=== PATIENT | female | born 1930 | race Caucasian/White ===

== ENCOUNTER 2016-12-30 11:05 | Observation (INO) ==
--- NOTE | 2016-12-30 11:15 | Emergency Department Note ---
Disposition Clinical Impression: Pneumonia Qualifiers: Pneumonia type: due to unspecified organism Laterality: right Lung location: lower lobe of lung Qualified Code(s): J18.1 - Lobar pneumonia, unspecified organism Disposition: Admitted As Inpatient Condition: Fair Referrals: Corona Hollis MD [Primary Care Provider] - Forms: ED Satisfaction Letter, Work/School Release Time of Disposition: 13:20 General Adult HPI - General Chief complaint: ED General Medical Stated complaint: pain all over Time Seen by Provider: 12/30/16 11:08 Source: patient, EMS Mode of arrival: EMS Nursing Notes Reviewed: Yes Vital Signs Reviewed: Yes - History of Present Illness HPI Narrative: 86-year-old comes in complaining of generalized pain and inability to ambulate. Pt Subjective Complaint: Gen. pain Onset (ago): week(s) (2) Location: other (Generalized) Pain Scale: 8 Quality: aching Consistency: constant Improves with: nothing Associated symptoms: Reports: other (Generalized pain) - Related Data Home Medications Medication Instructions Recorded Confirmed Amiodarone [Cordarone] 200 mg PO DAILY 12/30/16 12/30/16 Furosemide [Lasix] 20 mg PO BID 12/30/16 12/30/16 Levothyroxine Sodium 200 mcg PO DAILY 12/30/16 12/30/16 [Levothyroxine Sodium] Warfarin [Coumadin] 2.5 mg PO WEFR 12/30/16 12/30/16 Warfarin [Coumadin] 5 mg PO SUMOTUTHSA 12/30/16 12/30/16 Allergies Allergy/AdvReac Type Severity Reaction Status Date / Time meperidine [From Demerol] AdvReac Unresponsiv Verified 12/30/16 11:12 e All systems ED: reviewed and negative except as stated. Constitutional: Denies: fever, chills, weakness, weight change Eyes: Denies: eye pain, eye discharge, vision change ENT ED: Denies: ear pain, throat pain, dental pain, hearing loss, epistaxis, congestion, dysphagia Cardiovascular: Denies: chest pain, palpitations, dyspnea on exertion, edema, syncope Respiratory: Denies: cough, dyspnea, wheezes, hemoptysis, stridor Gastrointestinal: Denies: abdominal pain, nausea, vomiting, diarrhea, constipation, hematemesis, melena, hematochezia Genitourinary: Denies: dysuria, frequency, hematuria, discharge Musculoskeletal: Reports: arthralgia, myalgia. Denies: back pain, neck pain Integumentary: Denies: rash, abrasion, lesions Neurological: Denies: headache, weakness, numbness, paresthesias, confusion, abnormal gait, vertigo Psychiatric: Denies: anxiety, depression, suicidal thoughts, homicidal thoughts , auditory hallucinations, visual hallucinations Endocrine: Denies: fatigue Hematological/Lymphatic: Denies: easy bleeding, easy bruising Allergic/Immunologic: Denies: facial swelling, urticaria Past Medical History - Past Medical History Medical history: Reports: atrial fibrillation, hypertension, thyroid disease Psychiatric history: Reports: no psych history - Social History Smoking Status: Never smoker Smokeless Tobacco Status: No Alcohol use: Reports: none Drug use: Reports: none Physical Exam - General General appearance: in no apparent distress - Head Head exam: atraumatic, normocephalic, normal inspection - Eye Eye exam: Present: normal appearance, PERRL, EOMI - ENT ENT exam: normal exam - Neck Neck exam: Present: normal inspection, full ROM, trachea midline - Chest Chest inspection: Present: normal inspection, symmetric chest wall rise - Respiratory Respiratory exam: Present: normal lung sounds bilaterally - Cardiovascular Cardiovascular exam: Present: regular rate, normal rhythm, normal heart sounds - Abdominal Exam Abdominal exam: Present: soft, Non-Tender. Absent: tenderness, distention, guarding, rebound, rigidity - Extremities Exam Extremities exam: Present: normal inspection - Expanded Lower Extremity Exam Neurovascular/Tendon exam: Absent: motor deficit, sensory deficit, tendon deficit Gait: observed and normal - Back Exam Back exam: Present: normal inspection, full ROM. Absent: tenderness - Neurological Exam Neurological exam: Present: alert, oriented X3 - Psychiatric Psychiatric exam: Present: normal affect, normal mood - Skin Skin exam: Present: warm, dry, intact, normal color Course - Reevaluation(s) Reevaluation #1: 86-year-old with generalized body aches some cough. Chest x-ray shows what appears to be a pneumonia. Patient will be admitted. Time: 14:16 - Consultations Consultation #1: Discussed with luis enrique Patino. Time: 14:19 Vital Signs Temperature 98.0 F 12/30/16 11:07 Pulse Rate 53 12/30/16 11:07 Respiratory Rate 16 12/30/16 11:07 Blood Pressure 148/68 12/30/16 11:07 O2 Sat by Pulse Oximetry 94 12/30/16 11:07 Temperature 98.0 F 12/30/16 11:07 Pulse Rate 53 12/30/16 11:07 Respiratory Rate 16 12/30/16 11:07 Blood Pressure 148/68 12/30/16 11:07 O2 Sat by Pulse Oximetry 94 12/30/16 11:07 Oxygen Delivery Oxygen Delivery Room Air Medical Decision Making - Lab Data Lab results reviewed: Yes I reviewed the patient's lab results. Result diagrams: 12/30/16 11:23 12/30/16 11:23 Lab Results 12/30/16 12/30/16 12/30/16 Range/Units 11:23 11:23 11:23 WBC 9.2 (4.3-11.1) K/mcL RBC 4.47 (3.82-4.97) M/mcL Hgb 14.3 (11.5-15.4) g/dL Hct 42.8 (35.3-44.9) % MCV 95.7 (83.0-100.0) fL MCH 32.0 (28.0-33.3) pg MCHC 33.4 (31.6-35.5) g/dL RDW 13.7 (11.5-14.5) % Plt Count 315 (140-400) K/mcL MPV 9.9 (9.4-12.4) fL Immature Gran % 1.0 (0-4) % Seg Neutrophils % 75.0 % Lymphocytes % 11.6 % Monocytes % 8.4 % Eosinophils % 3.6 % Basophils % 0.4 % Neutrophils # 6.9 (1.6-8.9) K/mcL Lymphocytes # 1.1 (0.6-4.6) K/mcL Monocytes # 0.8 (0.0-1.3) K/mcL Eosinophils # 0.3 (0.0-0.6) K/mcL Basophils # 0.0 (0.0-0.2) K/mcL Sodium 142 (136-145) mEq/L Potassium 3.7 (3.5-4.5) mEq/L Chloride 107 (98-109) mEq/L Carbon Dioxide 26 (19-29) mEq/L BUN 16 (7-20) mg/dL Creatinine 0.67 (0.57-1.11) mg/dL Est GFR ( Amer) > 60 (> 60) Est GFR (Non-Af Amer) > 60 (> 60) BUN/Creatinine Ratio 24 (6-26) Glucose 93 (70-99) mg/dL Calculated Osmolality 295 (280-300) Calcium 8.5 L (8.6-10.8) mg/dL Total Bilirubin 0.8 (0.2-1.2) mg/dL Direct Bilirubin 0.4 (0.0-0.5) mg/dL Indirect Bilirubin 0.4 (0.0-1.2) mg/dL AST 29 (5-34) Units/L ALT 21 (0-55) Units/L Alkaline Phosphatase 114 (38-126) Units/L Creatine Kinase 92 (29-168) Units/L Troponin I 0.02 (0-0.03) ng/mL Serum Total Protein 6.3 (6.0-8.3) g/dL Albumin 2.6 L (3.5-5.0) g/dL Globulin 3.7 H (2.4-3.5) g/dL Albumin/Globulin Ratio 0.7 L (1.1-2.2) Amylase 32 (25-125) Units/L Lipase < 10 (8-78) Units/L - Radiology Data Radiology results reviewed: Yes I reviewed the patient's radiology results. Chest X-Ray 12/30/16 11:12 IMPRESSION: 1. Small right pleural effusion with right lower lobe airspace opacity, favored to be atelectasis; however, if patient has clinical symptoms of infection, consolidation can represent pneumonia. D/ / Mik Siu MD / Mik Siu MD Interpreting Provider: Mik Siu MD - EKG Data EKG #1 EKG attestation: Yes I reviewed and interpreted this EKG. EKG shows normal: sinus rhythm Rate: bradycardia Rhythm: NSR [place]/QRS: IVCD Interpretation: no acute changes, nonspecific ST-T wave changes
[2016-12-30 11:30] LABS: Basophils % 0.4 %; Eosinophils # 0.3 K/mcL (0.0-0.6); Eosinophils % 3.6 %; Hematocrit 42.8 % (35.3-44.9); Hemoglobin 14.3 g/dL (11.5-15.4); Lymphocytes # 1.1 K/mcL (0.6-4.6); Lymphocytes % 11.6 %; Mean Corpuscular HGB Conc 33.4 g/dL (31.6-35.5); Mean Corpuscular Volume 95.7 fL (83.0-100.0); Mean Platelet Volume 9.9 fL (9.4-12.4); Monocytes # 0.8 K/mcL (0.0-1.3); Monocytes % 8.4 %; Neutrophils # 6.9 K/mcL (1.6-8.9); Platelet Count 315 K/mcL (140-400); Red Blood Count 4.47 M/mcL (3.82-4.97); Red Cell Distribution Width 13.7 % (11.5-14.5)
[2016-12-30 11:47] LABS: Alanine Aminotransferase 21 Units/L (0-55); Albumin 2.6 g/dL (3.5-5.0); Albumin/Globulin Ratio 0.7 (1.1-2.2); Alkaline Phosphatase 114 Units/L (38-126); Amylase 32 Units/L (25-125); Aspartate Amino Transferase 29 Units/L (5-34); BUN/Creatinine Ratio 24 (6-26); Bilirubin,Direct 0.4 mg/dL (0.0-0.5); Bilirubin,Indirect 0.4 mg/dL (0.0-1.2); Bilirubin,Total 0.8 mg/dL (0.2-1.2); Blood Urea Nitrogen 16 mg/dL (7-20); Calcium 8.5 mg/dL (8.6-10.8); Carbon Dioxide 26 mEq/L (19-29); Chloride 107 mEq/L (98-109); Creatine Kinase 92 Units/L (29-168); Globulin 3.7 g/dL (2.4-3.5); Glucose 93 mg/dL (70-99); Osmolality,Calculated 295 (280-300); Potassium 3.7 mEq/L (3.5-4.5); Sodium 142 mEq/L (136-145); Total Protein 6.3 g/dL (6.0-8.3); eGFR For African Americans > 60 (> 60); eGFR For Non-African Americans > 60 (> 60)
[2016-12-30 11:52] LABS: Lipase < 10 Units/L (8-78)
[2016-12-30] MEDS ORDERED: Piperacillin/Tazobactam 3.375 GM in D5% in Water 50 ML IVPB ONE (13:19)
[2016-12-30 14:27] LABS: Bilirubin,Urine Small (Negative); Blood,Urine Negative (Negative); Clarity,Urine Clear (Clear); Color,Urine Yellow (Yellow); Glucose,Urine (UA) Normal (Normal); Ketones,Urine Negative (Negative); Leukocyte Esterase,Urine Negative (Negative); Nitrite,Urine Negative (Negative); PH,Urine 6.5 pH Units (5.0-8.0); Protein,Urine Negative (Neg-Trace); Specific Gravity,Urine 1.021 (1.010-1.025); Urobilinogen,Urine Normal (Normal)
[2016-12-30] MEDS ORDERED: Ondansetron 4 MG/2 ML VIAL IVP PRN (14:52)
[2016-12-30] MEDS ORDERED: Acetaminophen 325 MG TABLET PO PRN (14:52)
[2016-12-30] MEDS ORDERED: *HR* Morphine 2 MG/ML SYRINGE IVP PRN (14:52)
[2016-12-30] MEDS ORDERED: Naloxone 0.4 MG/ML INJ IVP PRN (14:56)
--- NOTE | 2016-12-30 15:15 | Internal Med History&Physical ---
<ImeldaJosef hand - Last Filed: 12/30/16 15:56> Date of Encounter: 12/30/16 Time of Encounter: 13:30 Assessment and Plan (1) Pneumonia Current visit: Yes Status: Acute 1-View CXR today shows small right pleural effusion with right lower lobe airspace opacity favored to be atelectasis, however if patient has clinical symptoms of infection consolidation can represent pneumonia. Pt. resides at SNF at reports that many residents are currently ill. Pt. does not currently meet sepsis criteria. Legionella and strep pneumoniae urine antigens ordered. Blood cultures x2. IV 0.9 NS 100 mL/HR. Supplemental O2 w/titration and SpO2 monitoring. DuoNebs Q6HR scheduled. IVPB Zosyn 3.375 gm Q8 and Levaquin 750 mg daily ordered for pneumonia coverage. Pt. at high risk for further morbidity and infection based on current sx, hx, and risk factors. Inpatient. Qualifiers: Pneumonia type: due to unspecified organism Laterality: right Lung location: lower lobe of lung Qualified Code(s): J18.1 - Lobar pneumonia, unspecified organism (2) Abdominal pain Current visit: Yes Status: Acute Pt. reports abdominal pain in lower abdomen/pelvic region most likely d/t current constipation. Colace 100 mg BID and Miralax PRN ordered. Monitor I&O and daily weight. U/A not indicative for culture or UTI. CT of the abdomen/ pelvis ordered. Qualifiers: Abdominal location: lower abdomen, unspecified Qualified Code(s): R10.30 - Lower abdominal pain, unspecified (3) Constipation Current visit: Yes Status: Acute Pt. reports acute constipation over the past two to three days. Will add Colace 100 mg BID and Miralax PRN. Monitor I&O and daily weight. Qualifiers: Constipation type: unspecified constipation type Qualified Code(s): K59.00 - Constipation, unspecified (4) Weakness Current visit: Yes Status: Acute Pt. reports weakness over the past two days in her bilateral LEs causing difficulty w/ambulation. PT/OT consults to assess pt. for ambulation strength and stability. Falls/safety precautions. (5) Atrial fibrillation Current visit: Yes Status: Chronic Hx of paroxysmal atrial fibrillation. Pt. is currently in sinus bradycardia and reports she has not had an episode of atrial fibrillation for some time after being placed on medication. Will continue patient's amiodarone. Continuous cardiac telemetry. Qualifiers: Atrial fibrillation type: paroxysmal Qualified Code(s): I48.0 - Paroxysmal atrial fibrillation (6) HTN (hypertension) Current visit: Yes Status: Chronic Hx of chronic HTN. Pt. does not currently take any HTN medication. Monitor pt. and VS and will add lisinopril if warranted. Qualifiers: Hypertension type: essential hypertension Qualified Code(s): I10 - Essential (primary) hypertension (7) Thyroid disease Current visit: Yes Status: Chronic Hx of chronic thyroid disease. Continue patient's levothyroxine. (8) DVT prophylaxis Current visit: Yes Status: Acute Warfarin with pharmacy dosing for DVT prophylaxis. Monitor pt. for signs of bleeding. Internal Medicine - H&P: HPI Chief complaint: Lower abdominal pain and weakness Admitted From: Emergency Dept Plans for Post Hospital Care: Transfer [facility] History of present illness: Ms. El is a 86 year old female with medical hx of chronic atrial fibrillation, hypertension, and thyroid disease presents from the ED with chief complaint of lower abdominal pain in the pelvic region, constipation hx, and generalized weakness with difficulty ambulating for the past two days. Pt. states that she lives at [facility] and she has seen a lot of residents who are currently sick. Pt. denies ever smoking as well as recent illness, fever, chills, nausea, vomiting, diarrhea, unusual bleeding, changes in vision, SOB, chest pain, palpitations, headache, dizziness, lightheadedness, numbness, tingling, confusion, pre-syncope, or syncope. Past Med Surg Social Fam HX - Past Medical History Source: patient, old records reviewed Medical history: atrial fibrillation, hypertension, thyroid disease Psychiatric history: no psych history - Past Surgical History Surgical History: cholecystectomy, orthopedic, other (Bilateral knee replacements), other (Tonsillectomy) - Social History Smoking Status: Never smoker Smokeless Tobacco Status: No Alcohol use: none Drug use: none Current living situation: Assisted Living Activity Level: Uses cane/walker Recent Out of Country Travel Within the Last 8 Weeks: No Exposure or Possible Exposure to Illness During Travel: No - Family History Father Race: Family Member Ethnicity: Non- Living Status: (70) Cause of : Cancer (type unknown) Hx Family Cancer: Yes Mother Race: Family Member Ethnicity: Non- Living Status: Age at : 72 Cause of : DM complications Hx Family Endocrine Disorder: Yes (DM) Brother Race: Family Member Ethnicity: Non- Living Status: Age at : 50 Cause of : Cancer (type unknown) Hx Family Cancer: Yes Sister Race: Family Member Ethnicity: Non- Living Status: Still Living Hx Family Cancer: Yes (Breast) Internal Medicine - H&P: Meds Amiodarone [Cordarone] 200 mg PO DAILY 12/30/16 [History] Furosemide [Lasix] 20 mg PO BID 12/30/16 [History] Levothyroxine Sodium [Levothyroxine Sodium] 200 mcg PO DAILY 12/30/16 [History] Warfarin [Coumadin] 2.5 mg PO WEFR 12/30/16 [History] Warfarin [Coumadin] 5 mg PO SUMOTUTHSA 12/30/16 [History] 3 Allergy/AdvReac Type Severity Reaction Status Date / Time meperidine [From Demerol] AdvReac Unresponsiv Verified 12/30/16 11:12 e All Systems PM: A 10-system review of systems was performed and is negative for pertinent findings except as documented above in the HPI. - Constitutional Constitutional: as per HPI (Bilateral LEs), weakness, no chills, no fever(s), no night sweats - EENT Eyes: no change in vision, no discharge, no pain, no photophobia Ears: no ear discharge, no ear pain, no tinnitus Nose, mouth and throat: no dysphagia, no nasal discharge, no neck pain, no sore throat - Breasts Breasts: as per HPI - Cardiovascular Cardiovascular ROS IM: no chest pain, no diaphoresis, no dyspnea, no lightheadedness, no palpitations, no syncope - Respiratory Respiratory: no cough, no dyspnea, no wheezing, no excessive phlegm production - Gastrointestinal Gastrointestinal: as per HPI, abdominal pain (Pelvic region), constipation - Genitourinary Genitourinary: no change in urinary stream, no dysuria, no flank pain, no hematuria Menstruation: as per HPI - Musculoskeletal Musculoskeletal ROS IM: no numbness, no tingling - Integumentary Integumentary IM: as per HPI, other (Skin darkening w/flaking on bilateral shins and ankles) - Neurological Neurological ROS: no confusion, no convulsions, no focal weakness, no numbness, no tingling, no tremor(s) - Psychiatric Psychiatric: as per HPI - Endocrine Endocrine IM: as per HPI - Hematologic/Lymphatic Hematologic/Lymphatic: no easy bruising - Allergic/Immunologic Allergic/Immunologic: as per HPI - Constitutional Vitals: Temp Pulse Resp BP Pulse Ox 98.0 F 53 16 148/68 94 12/30/16 11:07 12/30/16 11:07 12/30/16 11:07 12/30/16 11:07 12/30/16 11:07 General appearance: Present: cooperative, A&O X 3, pleasant, no acute distress, underweight, answers questions appropriately - Head Head exam: Present: atraumatic, normocephalic - Eye Eye exam: Present: PERRL, conjuntiva pink, sclera anicteric Pupils: Present: PERRL - ENT ENT exam: Present: normal exam, normal external ear exam - Neck Neck exam general surgery: Present: normal inspection, supple, trachea midline. Absent: lymphadenopathy - Respiratory Respiratory exam: Present: CTAB. Absent: accessory muscle use, rales, rhonchi, wheezes - Cardiovascular Cardiovascular exam: Present: bradycardia, +S1, +S2. Absent: diastolic murmur, gallop, rubs, systolic murmur - GI/Abdominal GI/Abdominal exam: Present: normal bowel sounds, soft, no peritoneal signs. Absent: distended, tenderness - Rectal Rectal exam: Present: deferred - Additional comments: exam deferred. - Extremities Exam Extremities exam: Present: warm, radial pulses palpable and symmetrical. Absent : calf tenderness, cyanotic, pedal edema - Back Exam Back exam: Present: normal inspection - Neurological Exam Neurological exam: Present: CN II-XII intact, oriented X3, no focal deficits. Absent: pronater drift, facial droop, speech deficit - Psychiatric Psychiatric exam: Present: normal affect, normal mood - Skin Skin exam: Present: dry (Flaking and discoloration on bilateral LEs), intact Internal Med - H&P Results - Labs CBC & Chem 7: 12/30/16 11:23 12/30/16 11:23 - EKG Data EKG shows normal: sinus rhythm Rate: bradycardia - EKG Data Prior EKG available for review: no EKG comments: 12/30/16 15:24 EKG dated 12/30/16 shows sinus bradycardia with borderline left axis deviation, moderate intraventricular conduction delay, and nonspecific ST and T-wave abnormality. Borderline ECG. - Diagnostic Studies Chest x-ray Additional comments: Impressions Chest X-Ray 12/30/16 11:12 IMPRESSION: 1. Small right pleural effusion with right lower lobe airspace opacity, favored to be atelectasis; however, if patient has clinical symptoms of infection, consolidation can represent pneumonia. D/ / Mik Siu MD / Mik Siu MD Interpreting Provider: Mik Siu MD <Vladislav Alexis P - Last Filed: 12/30/16 18:33> Date of Encounter: 12/30/16 Internal Medicine - H&P: HPI History of present illness: Ms. El is a 86 year old female All Systems PM: A 10-system review of systems was performed and is negative for pertinent findings except as documented above in the HPI. - Constitutional Vitals: Temp Pulse Resp BP Pulse Ox 97.7 F 63 17 158/80 95 12/30/16 17:00 12/30/16 17:00 12/30/16 17:00 12/30/16 17:00 12/30/16 17:00 Internal Med - H&P Results - Labs CBC & Chem 7: 12/30/16 11:23 12/30/16 11:23 Labs: Cardiac Enzymes 12/30/16 Range/Units 17:21 Troponin I 0.02 (0-0.03) ng/mL - Attending Attestation I examined this patient and my medical decision-making was reviewed with the Resident Physician. I agree with the documented findings, disposition and treatment plan as described except to the extent set forth below. 86/female Assisted living resident. Admitted with generalized weakness. Noted that patient has a pneumonia. We will start IV antibiotics. Close monitoring. Patient might need a senior care facility/extended care facility.
[2016-12-30] MEDS: 0.9 % Sodium Chloride 1,000 ML IVC SCH (15:27)
[2016-12-30] MEDS ORDERED: Levofloxacin 750 MG/150 ML 750 MG/150 ML BAG IVPB SCH ×2 (16:00→22:00)
[2016-12-30] MEDS: Piperacillin/Tazobactam 3.375 GM in D5% in Water 50 ML IVPB SCH ×2 (16:34→23:56)
[2016-12-30] MEDS: Ipratropium/Albuterol Neb 3 ML IH SCH ×2 (16:39→22:10)
[2016-12-30] MEDS ORDERED: Furosemide 20 MG TABLET PO SCH (17:00)
[2016-12-30] MEDS: *HR* HYDROcodone/Acet 5/325 mg TABLET PO PRN (17:51)
[2016-12-30] MEDS ORDERED: *HR* Warfarin 5 MG TABLET PO ONE (18:00)
[2016-12-30] MEDS ORDERED: Warfarin perPT PO PRN (18:00)
[2016-12-31 01:07] LABS: Basophils # 0.1 K/mcL (0.0-0.2); Basophils % 0.5 %; Eosinophils # 0.4 K/mcL (0.0-0.6); Eosinophils % 3.7 %; Hematocrit 40.6 % (35.3-44.9); Hemoglobin 13.5 g/dL (11.5-15.4); Immature Granulocytes % 1.3 % (0-4); Lymphocytes # 1.1 K/mcL (0.6-4.6); Lymphocytes % 10.8 %; Mean Corpuscular HGB Conc 33.3 g/dL (31.6-35.5); Mean Corpuscular Hemoglobin 31.8 pg (28.0-33.3); Mean Corpuscular Volume 95.5 fL (83.0-100.0); Monocytes % 10.1 %; Neutrophils # 7.3 K/mcL (1.6-8.9); Platelet Count 303 K/mcL (140-400); Red Blood Count 4.25 M/mcL (3.82-4.97); Red Cell Distribution Width 13.7 % (11.5-14.5); Segmented Neutrophils % 73.6 %
[2016-12-31 01:14] LABS: INR 1.4
[2016-12-31 01:16] LABS: Activated Partial Thrombo Time 28.4 Seconds (26.0-36.0)
[2016-12-31 01:26] LABS: Alanine Aminotransferase 20 Units/L (0-55); Albumin 2.4 g/dL (3.5-5.0); Albumin/Globulin Ratio 0.7 (1.1-2.2); Alkaline Phosphatase 109 Units/L (38-126); Aspartate Amino Transferase 29 Units/L (5-34); BUN/Creatinine Ratio 22 (6-26); Bilirubin,Total 0.8 mg/dL (0.2-1.2); Blood Urea Nitrogen 15 mg/dL (7-20); Calcium 8.1 mg/dL (8.6-10.8); Carbon Dioxide 26 mEq/L (19-29); Chloride 107 mEq/L (98-109); Chol/HDL Ratio 4.4 (0-4.9); Cholesterol 150 mg/dL (< 200); Globulin 3.4 g/dL (2.4-3.5); Glucose 86 mg/dL (70-99); HDL Cholesterol 34 mg/dL (40-59); LDL Cholesterol,Calculated 100 mg/dL (0-99); Magnesium 1.8 mg/dL (1.6-2.6); Osmolality,Calculated 288 (280-300); Potassium 3.5 mEq/L (3.5-4.5); Sodium 139 mEq/L (136-145); Total Protein 5.8 g/dL (6.0-8.3); Triglycerides 79 mg/dL (< 150); eGFR For African Americans > 60 (> 60); eGFR For Non-African Americans > 60 (> 60)
[2016-12-31] MEDS: Ipratropium/Albuterol Neb 3 ML IH SCH ×4 (03:42→21:53)
[2016-12-31] MEDS: *HR* HYDROcodone/Acet 5/325 mg TABLET PO PRN (05:50)
[2016-12-31] MEDS: 0.9 % Sodium Chloride 1,000 ML IVC SCH (05:52)
[2016-12-31] MEDS: Piperacillin/Tazobactam 3.375 GM in D5% in Water 50 ML IVPB SCH (08:26)
[2016-12-31] MEDS: *HR* Amiodarone 200 MG TABLET PO SCH (08:29)
[2016-12-31] MEDS ORDERED: *HR* Warfarin 5 MG TABLET PO ONE ×3 (13:45→18:00)
--- NOTE | 2016-12-31 16:41 | Electrocardiograph Report ---
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
--- NOTE | 2016-12-31 19:42 | Internal Med Progress Note ---
Date of Encounter: 12/31/16 Time of Encounter: 15:00 - Assessment and plan (1) Constipation Current Visit: Yes Status: Acute Assessment and plan: Worsening constipation causing debilitating abdominal pain. She has received senna and MiraLAX with no result. We will order Fleet enema and milk of magnesia. Qualifiers: Constipation type: unspecified constipation type Qualified Code(s): K59.00 - Constipation, unspecified (2) Atrial fibrillation Current Visit: Yes Status: Chronic Assessment and plan: Continue anticoagulation with Coumadin. Qualifiers: Atrial fibrillation type: paroxysmal Qualified Code(s): I48.0 - Paroxysmal atrial fibrillation (3) HTN (hypertension) Current Visit: Yes Status: Chronic Qualifiers: Hypertension type: essential hypertension Qualified Code(s): I10 - Essential (primary) hypertension (4) DVT prophylaxis Current Visit: Yes Status: Acute Assessment and plan: Full anticoagulated with Coumadin. (5) Abdominal pain Current Visit: Yes Status: Acute Assessment and plan: CT of the abdomen shows simple hernia, no evidence of acute pathology. Pain secondary to constipation. We will treat this and continue to monitor. Patient was admitted yesterday with a presumptive diagnosis of pneumonia. Her blood cultures are normal. She has been afebrile. She denies cough or sputum production chest pain and shortness of breath. Lung exam reveals clear breath sounds. I have very low suspicion for pneumonia. I reviewed the chest x-ray result which reports findings consistent with atelectasis versus pneumonia. I am inclined more towards atelectasis especially given the abdominal pain and possible antalgic hypoventilation. I will stop antibiotics. Order incentive spirometry. Out of bed to chair. Patient does not meet inpatient criteria. Chart was reviewed by EHR and the physician advised her and found to be observation appropriate. Admission status will be changed to observation under condition code 44. Qualifiers: Abdominal location: lower abdomen, unspecified Qualified Code(s): R10.30 - Lower abdominal pain, unspecified - Subjective Interval history: Patient reports abdominal pain mild to moderate, diffuse mostly in the right side, associated with constipation and no bowel movement over the last 3 days. - Constitutional Vitals: Temp Pulse Resp BP Pulse Ox 98.2 F 73 18 132/69 96 12/31/16 18:41 12/31/16 18:41 12/31/16 18:41 12/31/16 18:41 12/31/16 18:41 General appearance: Present: cooperative, A&O X 3, pleasant, no acute distress, underweight, answers questions appropriately - Eye Eye exam: Present: PERRL, conjuntiva pink, sclera anicteric Pupils: Present: PERRL - Respiratory Respiratory exam: Present: CTAB. Absent: accessory muscle use, rales, rhonchi, wheezes - Cardiovascular Cardiovascular exam: Present: RRR, +S1, +S2. Absent: diastolic murmur, gallop, rubs, systolic murmur - GI/Abdominal GI/Abdominal exam: Present: normal bowel sounds, soft, no peritoneal signs. Absent: distended, tenderness - Extremities Exam Extremities exam: Present: warm, radial pulses palpable and symmetrical. Absent : calf tenderness, cyanotic, pedal edema - Skin Skin exam: Present: dry, intact Internal Medicine: Result - Labs CBC & Chem 7: 12/31/16 00:28 12/31/16 00:28 Labs: Short CBC 12/31/16 Range/Units 00:28 WBC 9.9 (4.3-11.1) K/mcL Hgb 13.5 (11.5-15.4) g/dL Hct 40.6 (35.3-44.9) % Plt Count 303 (140-400) K/mcL Neutrophils # 7.3 (1.6-8.9) K/mcL BMP 12/31/16 00:28 Sodium 139 Potassium 3.5 Chloride 107 Carbon Dioxide 26 BUN 15 Creatinine 0.68 Glucose 86 Calcium 8.1 L Cardiac Enzymes 12/31/16 Range/Units 00:28 Troponin I 0.02 (0-0.03) ng/mL Liver Function 12/31/16 Range/Units 00:28 Total Bilirubin 0.8 (0.2-1.2) mg/dL AST 29 (5-34) Units/L ALT 20 (0-55) Units/L Alkaline Phosphatase 109 (38-126) Units/L Albumin 2.4 L (3.5-5.0) g/dL - ABG Interpretation ABG results: PT/INR, D-dimer PT 15.0 Seconds (9.4-12.1) H 12/31/16 00:28 Consult Discharge Plan - Plan Referrals: Bunny,Corona Jacob MD [Primary Care Provider] -
[2016-12-31] MEDS ORDERED: MOM Conc 10 ML UD.LIQ PO ONE (23:38)
[2017-01-01] MEDS: Ipratropium/Albuterol Neb 3 ML IH SCH ×3 (03:57→16:48)
[2017-01-01 06:24] LABS: Basophils # 0.1 K/mcL (0.0-0.2); Basophils % 0.5 %; Eosinophils # 0.3 K/mcL (0.0-0.6); Eosinophils % 2.9 %; Hematocrit 39.3 % (35.3-44.9); Hemoglobin 13.1 g/dL (11.5-15.4); Immature Granulocytes % 1.4 % (0-4); Lymphocytes # 1.1 K/mcL (0.6-4.6); Lymphocytes % 9.2 %; Mean Corpuscular HGB Conc 33.3 g/dL (31.6-35.5); Mean Corpuscular Hemoglobin 31.7 pg (28.0-33.3); Mean Corpuscular Volume 95.2 fL (83.0-100.0); Mean Platelet Volume 10.2 fL (9.4-12.4); Monocytes # 0.9 K/mcL (0.0-1.3); Monocytes % 7.7 %; Neutrophils # 9.2 K/mcL (1.6-8.9); Platelet Count 286 K/mcL (140-400); Red Blood Count 4.13 M/mcL (3.82-4.97); Red Cell Distribution Width 13.8 % (11.5-14.5); Segmented Neutrophils % 78.3 %
[2017-01-01 06:37] LABS: Alanine Aminotransferase 18 Units/L (0-55); Albumin 2.5 g/dL (3.5-5.0); Albumin/Globulin Ratio 0.8 (1.1-2.2); Alkaline Phosphatase 108 Units/L (38-126); Aspartate Amino Transferase 27 Units/L (5-34); BUN/Creatinine Ratio 14 (6-26); Bilirubin,Total 0.8 mg/dL (0.2-1.2); Blood Urea Nitrogen 9 mg/dL (7-20); Calcium 8.2 mg/dL (8.6-10.8); Carbon Dioxide 25 mEq/L (19-29); Chloride 109 mEq/L (98-109); Globulin 3.3 g/dL (2.4-3.5); Glucose 84 mg/dL (70-99); Osmolality,Calculated 294 (280-300); Potassium 3.5 mEq/L (3.5-4.5); Sodium 143 mEq/L (136-145); Total Protein 5.8 g/dL (6.0-8.3); eGFR For African Americans > 60 (> 60); eGFR For Non-African Americans > 60 (> 60)
[2017-01-01 06:59] LABS: INR 1.7; Prothrombin Time 18.6 Seconds (9.4-12.1)
[2017-01-01] MEDS: *HR* Amiodarone 200 MG TABLET PO SCH (09:39)
--- NOTE | 2017-01-01 09:59 | Discharge Summary ---
Date of Encounter: 01/01/17 Time of Encounter: 09:54 - Discharge Diagnosis (1) Constipation Priority: Secondary Status: Acute Qualifiers: Constipation type: unspecified constipation type Qualified Code(s): K59.00 - Constipation, unspecified (2) Atrial fibrillation Priority: Secondary Status: Chronic Qualifiers: Atrial fibrillation type: paroxysmal Qualified Code(s): I48.0 - Paroxysmal atrial fibrillation (3) HTN (hypertension) Priority: Secondary Status: Chronic Qualifiers: Hypertension type: essential hypertension Qualified Code(s): I10 - Essential (primary) hypertension (4) DVT prophylaxis Priority: Secondary Status: Acute (5) Abdominal pain Priority: Secondary Status: Acute Qualifiers: Abdominal location: lower abdomen, unspecified Qualified Code(s): R10.30 - Lower abdominal pain, unspecified (6) Pneumonia Priority: Primary Status: Acute Qualifiers: Pneumonia type: due to unspecified organism Laterality: right Lung location: lower lobe of lung Qualified Code(s): J18.1 - Lobar pneumonia, unspecified organism - Discharge Medications Prescriptions: Cefdinir [Omnicef] 300 mg PO BID #20 capsule Sennosides/Docusate Sodium [Senna-Docusate Sodium Tablet] 1 each PO BID PRN #20 tablet PRN Reason: Constipation Home Medications: Amiodarone [Cordarone] 200 mg PO DAILY 12/30/16 [History] Levothyroxine Sodium 200 mcg PO DAILY 12/30/16 [History] Warfarin [Coumadin] 2.5 mg PO WEFR 12/30/16 [History] Warfarin [Coumadin] 5 mg PO SUMOTUTHSA 12/30/16 [History] Cefdinir [Omnicef] 300 mg PO BID #20 capsule 01/01/17 [Rx] Furosemide [Lasix] 20 mg PO DAILY #0 01/01/17 [Rx] Polyethylene Glycol 3350 [MiraLAX] 17 gm PO DAILY PRN powd.pack 01/01/17 [Rx] Sennosides/Docusate Sodium [Senna-Docusate Sodium Tablet] 1 each PO BID PRN #20 tablet 01/01/17 [Rx] Allergies/Adverse Reactions: 3 Allergy/AdvReac Type Severity Reaction Status Date / Time meperidine [From Demerol] AdvReac Unresponsiv Verified 12/30/16 11:12 e Procedures/tests Complete & Pending: Procedures Performed prior 72 hours Category Date Time Status CT abd pelvis wo no iv no oral [CT] Routine Cat Scan 12/30/16 15:46 Completed Date of admission: 12/30/16 14:23 Primary care physician: Corona Hollis MD Consults: 12/30/16 14:56 Consult to Binder Folder Operator [CONS] Routine Reason for SW Consult: Please assess patient for home needs for post- discharge planning. 12/30/16 14:57 Consult to Occupational Therapy [CONS] Routine Comment: Evaluate, develop and implement POC Reason for Consult: Patient reports bilateral leg weakness in LEs and difficulty with ambulating. Please assess patient for strength, stability, safety, ambulation, and assistive needs for post-discharge planning. 12/30/16 14:58 Consult to Physical Therapy [CONS] Routine Comment: Evaluate, develop and implement POC Reason for Consult: Patient reports bilateral leg weakness in LEs and difficulty with ambulating. Please assess patient for strength, stability, safety, ambulation, and assistive needs for post-discharge planning. 12/30/16 15:22 Consult to Nutrition [CONS] Routine Comment: Consulting Provider: NUTRITION Reason for Dietary Consult: PO Supplementation - Patient Status Disposition: Transfer SNF Condition: Fair Functional capacity at discharge: uses cane/walker Overall status at discharge: patient is progressing back to baseline - Discharge Instructions Follow Up With: Corona Hollis MD [Primary Care Provider] - - Diet and Activity Activity: as per physical therapy, increase activity as tolerated Diet: low fat, low cholesterol, low salt diet Hospital course: Ms. El is a 86 year old female with past medical history significant for chronic atrial fibrillation, hypertension and thyroid disease who was brought to the hospital from the senior care facility for evaluation of lower abdominal pain, constipation and generalized weakness. She denied recent febrile illness chills nausea vomiting and cough. Her initial workup including chest x-ray and CT of the abdomen suggested the presence of a small right pleural effusion and right lower lobe infiltrate. She was started on IV antibiotics. She remained afebrile. Blood cultures have been drawn and are currently negative. Influenza, pneumococcal and Legionella serology remained negative. Given the lung infiltrate and mild elevation in WBC she will be treated for pneumonia with Omnicef which she will continue at the [facility]. She has received a bowel regimen and has had a bowel movement. She will be discharged to [facility] today. - Time Spent with Patient Total time spent providing and/or coordinating discharge services: Less than 30 minutes - Constitutional Vitals: Temp Pulse Resp BP Pulse Ox 98.6 F 56 15 148/68 95 01/01/17 07:06 01/01/17 07:06 01/01/17 07:06 01/01/17 07:06 01/01/17 07:06 General appearance: Present: cooperative, A&O X 3, pleasant, no acute distress, underweight, answers questions appropriately - Respiratory Respiratory exam: Present: CTAB. Absent: accessory muscle use, rales, rhonchi, wheezes - GI/Abdominal GI/Abdominal exam: Present: normal bowel sounds, soft, no peritoneal signs. Absent: distended, tenderness - Extremities Exam Extremities exam: Present: warm, radial pulses palpable and symmetrical. Absent : calf tenderness, cyanotic, pedal edema
[2017-01-01] MEDS ORDERED: Cefdinir 300 MG CAPSULE PO SCH (10:00)
--- NOTE | 2017-01-01 10:31 | Physician Discharge Referral ---
ExtendedCare Referral Info Provider in Charge after Transfer: PCP Institutional Level of Care: Skilled - Diagnosis (1) Constipation Status: Acute (2) Atrial fibrillation Status: Chronic (3) HTN (hypertension) Status: Chronic (4) DVT prophylaxis Status: Acute (5) Abdominal pain Status: Acute (6) Pneumonia Status: Acute - Transfer Medications Prescriptions: Cefdinir [Omnicef] 300 mg PO BID #20 capsule Sennosides/Docusate Sodium [Senna-Docusate Sodium Tablet] 1 each PO BID PRN #20 tablet PRN Reason: Constipation Home Medications: Amiodarone [Cordarone] 200 mg PO DAILY 12/30/16 [History] Levothyroxine Sodium 200 mcg PO DAILY 12/30/16 [History] Warfarin [Coumadin] 2.5 mg PO WEFR 12/30/16 [History] Warfarin [Coumadin] 5 mg PO SUMOTUTHSA 12/30/16 [History] Cefdinir [Omnicef] 300 mg PO BID #20 capsule 01/01/17 [Rx] Furosemide [Lasix] 20 mg PO DAILY #0 01/01/17 [Rx] Polyethylene Glycol 3350 [MiraLAX] 17 gm PO DAILY PRN powd.pack 01/01/17 [Rx] Sennosides/Docusate Sodium [Senna-Docusate Sodium Tablet] 1 each PO BID PRN #20 tablet 01/01/17 [Rx] Allergies/Adverse Reactions: 3 Allergy/AdvReac Type Severity Reaction Status Date / Time meperidine [From Demerol] AdvReac Unresponsiv Verified 12/30/16 11:12 e - Respiratory Orders Smoking Cessation: Smoking cessation has been advised. For more information, call the [place] Tobacco Quit Line at 8-976-LVPD-NOW. - Advance Directives Living Will: No Power of Night Clerk Auditor: Yes Code Status: Full Code - Mobility Orders Chair - Rehabiliation Orders Rehab Potential: Good Rehab Orders: Evaluation for Physical Therapy, Evaluation for Occupational Therapy - Treatments Skin tear care topically daily PRN per policy, May check for fecal impaction rectally daily PRN, Fleet enema rectally every other day PRN cleansing purposes - Diet Orders No Added Salt (VINOD) CERTIFICATION: I certify that the transfer of the above named patient to an Extended Care Facility is necessary for the continuing treatment of the diagnosis listed. The above information is true and accurate reflection of patient's current condition. Confidential - Redisclosure prohibited without a patient's written consent.
--- NOTE | 2017-01-01 11:04 | Physician Discharge Referral ---
Home Health/Hosp Referral Info Transfer to: Home Health Provider in Charge Post Discharge: PCP - Diagnosis (1) Constipation Status: Acute (2) Atrial fibrillation Status: Chronic (3) HTN (hypertension) Status: Chronic (4) DVT prophylaxis Status: Acute (5) Abdominal pain Status: Acute (6) Pneumonia Status: Acute - Respiratory Orders Smoking Cessation: Smoking cessation has been advised. For more information, call the [place] Tobacco Quit Line at 0-053-NFXU-NOW. - Diet/Nutrition Diet/Nutrition Orders: Cardiac - Activity Activity Orders: Walker - Services Needed Following services are medically necessary services: Nursing, Home Health Aide, Physical Therapy - Transfer Medications Prescriptions: Cefdinir [Omnicef] 300 mg PO BID #20 capsule Sennosides/Docusate Sodium [Senna-Docusate Sodium Tablet] 1 each PO BID PRN #20 tablet PRN Reason: Constipation Home Medications: Amiodarone [Cordarone] 200 mg PO DAILY 12/30/16 [History] Levothyroxine Sodium 200 mcg PO DAILY 12/30/16 [History] Warfarin [Coumadin] 2.5 mg PO WEFR 12/30/16 [History] Warfarin [Coumadin] 5 mg PO SUMOTUTHSA 12/30/16 [History] Cefdinir [Omnicef] 300 mg PO BID #20 capsule 01/01/17 [Rx] Furosemide [Lasix] 20 mg PO DAILY #0 01/01/17 [Rx] Polyethylene Glycol 3350 [MiraLAX] 17 gm PO DAILY PRN powd.pack 01/01/17 [Rx] Sennosides/Docusate Sodium [Senna-Docusate Sodium Tablet] 1 each PO BID PRN #20 tablet 01/01/17 [Rx] Allergies/Adverse Reactions: 3 Allergy/AdvReac Type Severity Reaction Status Date / Time meperidine [From Demerol] AdvReac Unresponsiv Verified 12/30/16 11:12 e Certification: Further, I certify that my clinical findings support that this patient is homebound (i.e. absences from home require considerable and taxing effort and are for medical reasons or advent services or infrequently or short duration when for other reasons) because: Homebound Reason: Patient requires assistance of a person or device to safely leave home, Leaving home requires considerable and taxing effort due to condition, Severity of cardiac or pulmonary status limits activity tolerance Attestation: My signature below is to certify that this patient is under my care and that I, or nurse practitioner, or a physician's assistant spa director working with me, has a face-to -face encounter with this patient.
[2017-01-01 15:07] VITALS: BP 132/67
[2017-01-01] MEDS ORDERED: *HR* Warfarin 5 MG TABLET PO ONE (18:00)
== END 2017-01-01 17:13 ==
LOC: 3BNU 11:05 → EMEROO 11:05 → 3BNU 15:52 → SUATTDRO 15:55 → 3BNU 16:23
PROVIDERS: ADMIT Internal Medicine; ATTEND Internal Medicine

== ENCOUNTER 2017-02-27 07:55 | Inpatient (IN) ==
--- NOTE | 2017-02-27 08:02 | Emergency Department Note ---
Disposition Clinical Impression: Frequent falls, Unable to bear weight, Concussion without loss of consciousness Disposition: Admitted As Inpatient Condition: Fair General Adult HPI - General Chief complaint: ED Fall Stated complaint: fall Time Seen by Provider: 02/27/17 08:00 Nursing Notes Reviewed: Yes Vital Signs Reviewed: Yes - Related Data Home Medications Medication Instructions Recorded Confirmed Amiodarone [Cordarone] 200 mg PO DAILY 12/30/16 02/27/17 Levothyroxine Sodium 200 mcg PO DAILY 12/30/16 02/27/17 Warfarin [Coumadin] 2.5 mg PO WEFR 12/30/16 02/27/17 Warfarin [Coumadin] 5 mg PO SUMOTUTHSA 12/30/16 02/27/17 Ascorbic Acid [Vitamin C] 500 mg PO DAILY 02/27/17 02/27/17 Calcium Carbonate [Calcium] 500 mg PO DAILY 02/27/17 02/27/17 Furosemide [Lasix] 20 mg PO DAILY PRN 02/27/17 02/27/17 Mirtazapine [Mirtazapine] 7.5 mg PO HS 02/27/17 02/27/17 Sennosides/Docusate Sodium 1 tab PO BID PRN 02/27/17 02/27/17 [Senna-Docusate Sodium Tablet] Sertraline [Zoloft] 50 mg PO DAILY 02/27/17 02/27/17 Previous Rx's Medication Instructions Recorded Polyethylene Glycol 3350 [MiraLAX] 17 gm PO DAILY PRN powd.pack 01/01/17 Allergies Allergy/AdvReac Type Severity Reaction Status Date / Time meperidine [From Demerol] AdvReac Unresponsiv Verified 12/30/16 11:12 e Past Medical History - Past Medical History Medical history: Reports: atrial fibrillation, hypertension, thyroid disease Surgical history: Reports: cholecystectomy, knee replacement, orthopedic, other , other Psychiatric history: Reports: no psych history - Social History Smoking Status: Never smoker Smokeless Tobacco Status: No Alcohol use: Reports: none Drug use: Reports: none Course Vital Signs Temperature 97.4 F L 02/27/17 07:58 Pulse Rate 83 02/27/17 07:58 Respiratory Rate 18 02/27/17 07:58 Blood Pressure 159/86 02/27/17 07:58 O2 Sat by Pulse Oximetry 94 02/27/17 07:58 Temperature 97.4 F L 02/27/17 07:58 Pulse Rate 58 02/27/17 11:54 Respiratory Rate 18 02/27/17 11:54 Blood Pressure 120/63 02/27/17 11:54 O2 Sat by Pulse Oximetry 96 02/27/17 11:54 Oxygen Delivery Oxygen Delivery Nasal Cannula Medical Decision Making - MDM Narrative Medical decision making narrative: This documentation is done with the assistance of Dragon dictation. There may be inaccuracies in glassware finisher or spelling and typographical errors. I examined this patient and my medical decision-making was reviewed with the Resident Physician. I agree with the documented findings, disposition and treatment plan as described except to the extent set forth below. Patient was seen and evaluated on arrival with EMS with Dr. Shah and myself, I agree with his evaluation and management plan, supervise care the patient's stay. She had a fall to nursing facility. Medics found her on the ground. She was having some pain in her hip. Denies loss consciousness. She does not have any neck tenderness but she does have some dried blood on her lip and on her nose. We will scan her head and her neck. Placed her in a c-collar. X-ray her pelvis. And then secondary exam when she returns from x-rays. We will give her something for pain also. Cervical Spine CT 02/27/17 08:01 IMPRESSION: No acute fracture. D/ / Sarah Franklin MD / Sarah Franklin MD Interpreting Provider: Sarah Franklin MD Chest X-Ray 02/27/17 08:01 IMPRESSION: No acute cardiac or pulmonary disease. D/ / Josemanuel Bauer MD / Josemanuel Bauer MD Interpreting Provider: Josemanuel Bauer MD Head CT 02/27/17 08:01 IMPRESSION: No acute intracranial abnormality. D/ / Janet Mckenzie / Janet Mckenzie Interpreting Provider: Janet Mckenzie Hip/Pelvis X-Ray 02/27/17 08:31 IMPRESSION: 1. Stable postsurgical changes in the right proximal femur from prior fracture fixation. Hardware appears stable in alignment. 2. No acute osseous abnormality. Given the degree of osteopenia, nondisplaced fractures may be radiographically occult. If pain or concern for fracture persists, consider CT or MR imaging. D/ / 02/27/2017 09:08:24 Veronika Paris MD / gayle Interpreting Provider: Veronika Paris MD Knee X-Ray 02/27/17 08:32 IMPRESSION: Suspected fracture of the proximal right tibial shaft, lower margin of the AP projection. Follow-up AP and lateral views of the right tibia and fibula are recommended. No acute fracture with bilateral total knee replacement. Moderate irregularity and bony resorption around the prosthesis greater medially. Prior studies would be helpful for comparison if available. D/ / Josemanuel Bauer MD / Josemanuel Bauer MD Interpreting Provider: Josemanuel Bauer MD - Lab Data Result diagrams: 02/27/17 09:38 02/27/17 09:38 Lab Results 02/27/17 02/27/17 Range/Units 09:38 09:38 WBC 14.9 H (4.3-11.1) K/mcL RBC 4.62 (3.82-4.97) M/mcL Hgb 14.4 (11.5-15.4) g/dL Hct 44.3 (35.3-44.9) % MCV 95.9 (83.0-100.0) fL MCH 31.2 (28.0-33.3) pg MCHC 32.5 (31.6-35.5) g/dL RDW 15.2 H (11.5-14.5) % Plt Count 358 (140-400) K/mcL MPV 10.3 (9.4-12.4) fL Immature Gran % 2.2 (0-4) % Seg Neutrophils % 81.2 % Lymphocytes % 7.1 % Monocytes % 7.7 % Eosinophils % 1.2 % Basophils % 0.6 % Neutrophils # 12.1 H (1.6-8.9) K/mcL Lymphocytes # 1.1 (0.6-4.6) K/mcL Monocytes # 1.2 (0.0-1.3) K/mcL Eosinophils # 0.2 (0.0-0.6) K/mcL Basophils # 0.1 (0.0-0.2) K/mcL Sodium 137 (136-145) mEq/L Potassium 3.7 (3.5-5.1) mEq/L Chloride 104 (98-107) mEq/L Carbon Dioxide 29 (23-29) mEq/L BUN 18 (8-23) mg/dL Creatinine 0.56 L (0.60-1.20) mg/dL Est GFR ( Amer) > 60 (> 60) Est GFR (Non-Af Amer) > 60 (> 60) BUN/Creatinine Ratio 32 H (6-26) Glucose 96 (70-105) mg/dL Calculated Osmolality 286 (280-300) Calcium 8.5 L (8.6-10.3) mg/dL
--- NOTE | 2017-02-27 08:14 | Emergency Department Note ---
Disposition Clinical Impression: Frequent falls, Unable to bear weight Concussion without loss of consciousness Qualifiers: Encounter type: initial encounter Qualified Code(s): S06.0X0A - Concussion without loss of consciousness, initial encounter Disposition: Admitted As Inpatient Condition: Fair Forms: ED Satisfaction Letter Time of Disposition: 11:30 Fall HPI - General Chief Complaint: ED Fall Stated Complaint: fall Time Seen by Provider: 02/27/17 08:00 Source: patient, EMS Mode of arrival: ambulatory Limitations: no limitations Nursing Notes Reviewed: Yes Vital Signs Reviewed: Yes - History of Present Illness HPI Narrative: 78-year-old female presents status post fall, street femur fracture on the right and bilateral knee replacements over remote, patient had a mechanical fall versus syncopal fall where she was at home at an assisted living facility [facility], she fell out of bed, she sustained abrasions to her face, and she has bilateral knee swelling, difficulty in regulating difficulty bearing any weight. Patient does not currently have skilled facility, she has occultly with transfers, she also sacral decubitus ulcer. The patient is unable to bear anyway, she was given out of bed when she is supposed to, and so she fell. Patient denies recent fever chills or productive cough. Pt Subjective Complaint: fall Fall From: out of bed Fall Witnessed: no Place Fall Occurred: home, [facility] Loss of Consciousness: unsure Prolonged Down Time?: unclear Context: tripped/slipped Location of injury: head Location of injury - extremities: Right: hip, knee, lower leg Severity: moderate Associated symptoms (after fall): Denies: headache, neck pain, numbness, weakness, chest pain - Related Data Home Medications Medication Instructions Recorded Confirmed Amiodarone [Cordarone] 200 mg PO DAILY 12/30/16 12/30/16 Levothyroxine Sodium 200 mcg PO DAILY 12/30/16 12/30/16 Warfarin [Coumadin] 2.5 mg PO WEFR 12/30/16 12/30/16 Warfarin [Coumadin] 5 mg PO SUMOTUTHSA 12/30/16 12/30/16 Previous Rx's Medication Instructions Recorded Cefdinir [Omnicef] 300 mg PO BID #20 capsule 01/01/17 Furosemide [Lasix] 20 mg PO DAILY #0 01/01/17 Polyethylene Glycol 3350 [MiraLAX] 17 gm PO DAILY PRN powd.pack 01/01/17 Sennosides/Docusate Sodium 1 each PO BID PRN #20 tablet 01/01/17 [Senna-Docusate Sodium Tablet] Allergies Allergy/AdvReac Type Severity Reaction Status Date / Time meperidine [From Demerol] AdvReac Unresponsiv Verified 12/30/16 11:12 e All systems ED: reviewed and negative except as stated. Review of Systems: As Per HPI Constitutional: Denies: fever, chills Eyes: Denies: eye pain ENT ED: Denies: ear pain Cardiovascular: Denies: chest pain, palpitations Respiratory: Denies: cough, dyspnea Gastrointestinal: Denies: abdominal pain Genitourinary: Denies: urgency, dysuria Musculoskeletal: Reports: as per HPI, neck pain, joint swelling, arthralgia Integumentary: Reports: as per HPI, abrasion Fall PMH - Past Medical History Medical history: Reports: atrial fibrillation, hypertension, thyroid disease Surgical history: Reports: cholecystectomy, knee replacement, orthopedic, other , other Psychiatric history: Reports: no psych history - Social History Smoking Status: Never smoker Alcohol use: Reports: none Drug use: Reports: none Physical Exam Primary Survery: A: patent B: BS equal bilat C: +2 radial and posterial tibialis pulses D: Debility, unable to ambulate unable to bear weight on the right leg E: No environmental/exposures Seconday: Constitutional: frail cachectic elderly female HEENT: Abrasions to the lips, no evidence of lacerations. Possibly epistaxis with some blood around the nares, PERRLA bilaterally, normal external ears bilaterally, no hemotympanum nasal septum nondeviated Neck: normal inspection, neck is supple, no midline cervical tenderness, C Collar placed in ed, trachea midline Resp: normal chest inspection, CTA bilaterally, no resp distress CV: RRR, no m/g/r GI: normal inspection, Soft, NTND, BS present, no r/r/g, no seatbelt sign Back: normal inspection, no tenderness to palpation, no palpable stepoff or deformity Neuro: A&O3, CN II-XII grossly intact bilaterally, no gross motor or sensory deficits bilaterally MSK: bilateral knee is status post knee replacements, area of ecchymosis and edema to the right knee. HEENT with range of motion of the right hip. Skin: Stage IV decubitus ulcer well healing with granulation tissue about 3 cm in diameter on the sacral decubitus area - General General appearance: alert Course Course Narrative: 78-year-old female with mechanical versus syncopal fall, she landed and struck her head causing abrasion she also has injury to her right knee and hip, with x- ray imaging of the knees and hips bilaterally as well as chest x-ray CT head and neck - Reevaluation(s) Reevaluation #1: c-spine cleared, the patient has evidence of possible tibial shaft fracture, dedicated tibia-fibula x-ray was obtained, this showed questionable fracture versus osteopenia, I then spoke with the orthopedist provider relations coordinator who stated that the patient would be appropriate for admission to hospital service given that she cannot weight-bear he will evaluate her for possible fracture, the plan will be for hospice admission basic lab work was ordered that showed mild leukocytosis, no evidence of pneumonia but we will check urinalysis as well , the patient was admitted to the hospital service Dr. Plaza Time: 11:29 Vital Signs Temperature 97.4 F L 02/27/17 07:58 Pulse Rate 83 02/27/17 07:58 Respiratory Rate 18 02/27/17 07:58 Blood Pressure 159/86 02/27/17 07:58 O2 Sat by Pulse Oximetry 94 02/27/17 07:58 Temperature 97.4 F L 02/27/17 07:58 Pulse Rate 60 02/27/17 11:08 Respiratory Rate 16 02/27/17 11:08 Blood Pressure 130/60 02/27/17 11:08 O2 Sat by Pulse Oximetry 99 02/27/17 11:08 Oxygen Delivery Oxygen Delivery Nasal Cannula Fall - Differential Diagnosis Likely: syncope, traumatic injury - Medical Records Medical records reviewed: Yes I reviewed the patient's medical records. - Lab Data Lab results reviewed: Yes I reviewed the patient's lab results. Result diagrams: 02/27/17 09:38 02/27/17 09:38 Lab Results 02/27/17 02/27/17 Range/Units 09:38 09:38 WBC 14.9 H (4.3-11.1) K/mcL RBC 4.62 (3.82-4.97) M/mcL Hgb 14.4 (11.5-15.4) g/dL Hct 44.3 (35.3-44.9) % MCV 95.9 (83.0-100.0) fL MCH 31.2 (28.0-33.3) pg MCHC 32.5 (31.6-35.5) g/dL RDW 15.2 H (11.5-14.5) % Plt Count 358 (140-400) K/mcL MPV 10.3 (9.4-12.4) fL Immature Gran % 2.2 (0-4) % Seg Neutrophils % 81.2 % Lymphocytes % 7.1 % Monocytes % 7.7 % Eosinophils % 1.2 % Basophils % 0.6 % Neutrophils # 12.1 H (1.6-8.9) K/mcL Lymphocytes # 1.1 (0.6-4.6) K/mcL Monocytes # 1.2 (0.0-1.3) K/mcL Eosinophils # 0.2 (0.0-0.6) K/mcL Basophils # 0.1 (0.0-0.2) K/mcL Sodium 137 (136-145) mEq/L Potassium 3.7 (3.5-5.1) mEq/L Chloride 104 (98-107) mEq/L Carbon Dioxide 29 (23-29) mEq/L BUN 18 (8-23) mg/dL Creatinine 0.56 L (0.60-1.20) mg/dL Est GFR ( Amer) > 60 (> 60) Est GFR (Non-Af Amer) > 60 (> 60) BUN/Creatinine Ratio 32 H (6-26) Glucose 96 (70-105) mg/dL Calculated Osmolality 286 (280-300) Calcium 8.5 L (8.6-10.3) mg/dL - Radiology Data Radiology results reviewed: Yes I reviewed the patient's radiology results. Chest X-Ray 02/27/17 08:01 IMPRESSION: No acute cardiac or pulmonary disease. D/ / Josemanuel Bauer MD / Josemanuel Bauer MD Interpreting Provider: Josemanuel Bauer MD Head CT 02/27/17 08:01 IMPRESSION: No acute intracranial abnormality. D/ / Janet Mckenzie / Janet Mckenzie Interpreting Provider: Janet Mckenzie Hip/Pelvis X-Ray 02/27/17 08:31 IMPRESSION: 1. Stable postsurgical changes in the right proximal femur from prior fracture fixation. Hardware appears stable in alignment. 2. No acute osseous abnormality. Given the degree of osteopenia, nondisplaced fractures may be radiographically occult. If pain or concern for fracture persists, consider CT or MR imaging. D/ / 02/27/2017 09:08:24 Veronika Paris MD / earnold Interpreting Provider: Veronika Paris MD Knee X-Ray 02/27/17 08:32 IMPRESSION: Suspected fracture of the proximal right tibial shaft, lower margin of the AP projection. Follow-up AP and lateral views of the right tibia and fibula are recommended. No acute fracture with bilateral total knee replacement. Moderate irregularity and bony resorption around the prosthesis greater medially. Prior studies would be helpful for comparison if available. D/ / Josemanuel Bauer MD / Josemanuel Bauer MD Interpreting Provider: Josemanuel Bauer MD - EKG Data EKG attestation: Yes I reviewed and interpreted this EKG. EKG shows normal: sinus rhythm Rate: normal (67bpm) Rhythm: NSR [place]/QRS: normal Interpretation: no acute changes - Core Measures AMI Core Measures Followed: No
[2017-02-27] MEDS ORDERED: Acetaminophen 325 MG TABLET PO ONE (08:31)
[2017-02-27] MEDS: 0.9 % Sodium Chloride 1,000 ML IVC SCH (09:48)
[2017-02-27 09:49] LABS: Basophils # 0.1 K/mcL (0.0-0.2); Basophils % 0.6 %; Eosinophils # 0.2 K/mcL (0.0-0.6); Eosinophils % 1.2 %; Hematocrit 44.3 % (35.3-44.9); Hemoglobin 14.4 g/dL (11.5-15.4); Immature Granulocytes % 2.2 % (0-4); Lymphocytes # 1.1 K/mcL (0.6-4.6); Lymphocytes % 7.1 %; Mean Corpuscular HGB Conc 32.5 g/dL (31.6-35.5); Mean Corpuscular Hemoglobin 31.2 pg (28.0-33.3); Mean Corpuscular Volume 95.9 fL (83.0-100.0); Mean Platelet Volume 10.3 fL (9.4-12.4); Monocytes # 1.2 K/mcL (0.0-1.3); Monocytes % 7.7 %; Neutrophils # 12.1 K/mcL (1.6-8.9); Platelet Count 358 K/mcL (140-400); Red Blood Count 4.62 M/mcL (3.82-4.97); Red Cell Distribution Width 15.2 % (11.5-14.5); Segmented Neutrophils % 81.2 %
[2017-02-27 09:57] LABS: Calcium 8.5 mg/dL (8.6-10.3); Carbon Dioxide 29 mEq/L (23-29); Chloride 104 mEq/L (98-107); Potassium 3.7 mEq/L (3.5-5.1); Sodium 137 mEq/L (136-145)
[2017-02-27 10:02] LABS: BUN/Creatinine Ratio 32 (6-26); Blood Urea Nitrogen 18 mg/dL (8-23); Glucose 96 mg/dL (70-105); Osmolality,Calculated 286 (280-300); eGFR For African Americans > 60 (> 60); eGFR For Non-African Americans > 60 (> 60)
--- NOTE | 2017-02-27 12:09 | Electrocardiograph Report ---
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
--- NOTE | 2017-02-27 12:38 | Event Note ---
Date of Encounter: 02/27/17 Time of Encounter: 12:36 Patient examined with nurse practitioner. Patient presents after a fall, details of which cannot be provided by the patient. Questionable right Tibial fracture. Orthopedic surgery to evaluate. Patient has a fib on anticoagulant medications, will check INR. She has a white count 14,000 will check for infectious etiology. If the patient will need surgery, she will need cardiac clearance because of poor functional capacity and multiple clinical predictors and no previous coronary evaluation. Await further input from ortho.
--- NOTE | 2017-02-27 12:38 | Orthopedic Consult Note ---
Date of Encounter: 02/27/17 Time of Encounter: 12:22 History of Present Illness Chief complaint: Bilateral knee pain HPI: Ms. El is a 86 year old female is a resident at a local nursing facility who apparently had a fall. She was brought to the emergency room for evaluation and treatment. The patient is quite confused and can offer no reliable history. I reviewed the patient's medical record and spoke with the emergency room staff. I then performed an independent exam of the patient and reviewed her x-rays. Please see the completed medical record for a more complete history and physical exam. Pertinent orthopedic examination at this time reveals an elderly white female in minimal distress. Examination of the right lower extremity shows a well- healed midline incision over the right knee and a well-healed incision over the right lateral hip area. Left knee shows obvious varus deformity with edema and ecchymosis predominantly over the medial side. I am not able to elicit any real pain with examination of either knee. I was able to review x-rays. X-rays of the right hip reveals a long trochanteric femoral nail with a blade into the head that is cut out. The head and neck are in a varus position. The compression has left the distal end of the blade lateral. I compared this to postop view was taken more than 5 years ago and there is significant change. The patient did have early collapse and cut out with her current findings relatively stable. Examination of her knee x- rays reveals bilateral total knee arthroplasties. These are 3 component knee replacements with an all polyethylene tibial component bilateral. The right knee shows a marked amount of osteoporotic changes and I do not appreciate any acute fractures there appears to be adequate cement mantle of all 3 components. No defined lucencies. Tremendous osteopenia changes. There are also vascular calcifications. Can see tip of the nail above the level of the prosthesis at the metadiaphyseal junction. Left knee shows marked changes with a varus knee. I suspect there has been a previous fracture and possibly even a fracture of the polyethylene articular surface on the medial side. There is evidence of what appeared to be chronic lucencies about the anterior distal tibial component. Posterior aspect appears to be stable without any defined lucencies. X-rays of the right tibia are reviewed. These do not reveal any acute fractures. Impression: #1. Acute contusion left knee, status post left total knee arthroplasty with probable implant failure and chronic deformity #2. Acute Contusion right knee, status post total knee arthroplasty with stable appearing prosthesis #3. 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 The patient has multiple concerns with most of her pain centered around the most normal-appearing right knee. The left knee has more ecchymosis and edema and a more worrisome, but chronic x-ray. The right hip reveals a chronic appearing implant/helical blade cut out. This is associated with a varus malunion of the low neck fracture. I would treat the patient with initially a nonweightbearing status and evaluate her clinical status after a short. Of time. If pain persists or worsens we will evaluate further, may need CT scan of both proximal tibia. Thank you for allowing me to see and treat Mrs. El. Sincerely, Teddy Love,DO Past Med Surg Social Fam HX - Past Medical History Medical history: atrial fibrillation, hypertension, thyroid disease Psychiatric history: no psych history - Past Surgical History Surgical History: cholecystectomy, knee replacement, orthopedic, other, other - Social History Smoking Status: Never smoker Smokeless Tobacco Status: No Alcohol use: none Drug use: none - Family History Father Family Member Ethnicity: Non- Living Status: Hx Family Cancer: Yes Mother Family Member Ethnicity: Non- Living Status: Hx Family Endocrine Disorder: Yes (DM) Brother Family Member Ethnicity: Non- Living Status: Hx Family Cancer: Yes Sister Family Member Ethnicity: Non- Living Status: Still Living Hx Family Cancer: Yes (Breast) Medications and Allergies Amiodarone [Cordarone] 200 mg PO DAILY 12/30/16 [History] Levothyroxine Sodium 200 mcg PO DAILY 12/30/16 [History] Warfarin [Coumadin] 2.5 mg PO WEFR 12/30/16 [History] Warfarin [Coumadin] 5 mg PO SUMOTUTHSA 12/30/16 [History] Polyethylene Glycol 3350 [MiraLAX] 17 gm PO DAILY PRN powd.pack 01/01/17 [Rx] Ascorbic Acid [Vitamin C] 500 mg PO DAILY 02/27/17 [History] Calcium Carbonate [Calcium] 500 mg PO DAILY 02/27/17 [History] Furosemide [Lasix] 20 mg PO DAILY PRN 02/27/17 [History] Mirtazapine [Mirtazapine] 7.5 mg PO HS 02/27/17 [History] Sennosides/Docusate Sodium [Senna-Docusate Sodium Tablet] 1 tab PO BID PRN 02/27 [History] Sertraline [Zoloft] 50 mg PO DAILY 02/27/17 [History] 3 Allergy/AdvReac Type Severity Reaction Status Date / Time meperidine [From Demerol] AdvReac Unresponsiv Verified 12/30/16 11:12 e All Systems Reviewed: A 10-system review of systems was performed and is negative for pertinent findings except as documented above in the HPI. Physical Exam - Constitutional Vitals: Temp Pulse Resp BP Pulse Ox 97.4 F L 58 18 120/63 96 02/27/17 07:58 02/27/17 11:54 02/27/17 11:54 02/27/17 11:54 02/27/17 11:54 Results - Labs Result Diagrams: 02/27/17 09:38 02/27/17 09:38 Labs: Abnormal lab results WBC 14.9 K/mcL (4.3-11.1) H 02/27/17 09:38 RDW 15.2 % (11.5-14.5) H 02/27/17 09:38 Neutrophils # 12.1 K/mcL (1.6-8.9) H 02/27/17 09:38 Creatinine 0.56 mg/dL (0.60-1.20) L 02/27/17 09:38 BUN/Creatinine Ratio 32 (6-26) H 02/27/17 09:38 Calcium 8.5 mg/dL (8.6-10.3) L 02/27/17 09:38 All other labs normal. Consult Discharge Plan - Plan Referrals: Abby Cunningham [Primary Care Provider] -
[2017-02-27] MEDS ORDERED: Ondansetron 4 MG/2 ML VIAL IVP PRN (13:44)
[2017-02-27] MEDS ORDERED: *HR* HYDROcodone/Acet 5/325 mg TABLET PO PRN (13:44)
[2017-02-27] MEDS ORDERED: Naloxone 0.4 MG/ML INJ IVP PRN (13:44)
[2017-02-27] MEDS ORDERED: Furosemide 20 MG TABLET PO PRN (14:01)
--- NOTE | 2017-02-27 14:17 | Internal Med History&Physical ---
Date of Encounter: 02/27/17 Time of Encounter: 13:00 Assessment and Plan (1) Fall Current visit: Yes Status: Acute Acute fall this morning at SNF. Pt. is confused on exam and thinks she fell at [facility]. Abrasions to nose and mouth noted on exam. CT of the head show no acute intracranial abnormality. X-rays of LEs and hips negative for fxs. CT of the bilateral proximal tibias ordered. Falls/safety precautions. PT/OT consult ordered. Orthopedic consult ordered w/recommendation for conservative tx and pain mgmt. Daughter requests SW consult to place at different SNF and POA. Pt. discussed w/Dr. Plaza who is in agreement w/plan of care. Pt. is high risk for further morbidity and injury based on fall today, inability to ambulate , dementia/AMS, hx, and risk factors. Observation. Qualifiers: Encounter type: initial encounter Qualified Code(s): W19.XXXA - Unspecified fall, initial encounter (2) Leukocytosis Current visit: Yes Status: Acute Acute leukocytosis w/WBC of 14.9 on admission. Pt. is afebrile and asymptomatic for infection. U/A ordered. Wound culture ordered. Monitor culture results and order blood cultures if warranted. Monitor pt. and f/u labs for signs of increasing infection. Qualifiers: Leukocytosis type: unspecified Qualified Code(s): D72.829 - Elevated white blood cell count, unspecified (3) Weight loss, unintentional Current visit: Yes Status: Acute Acute weight loss of 50 pounds in 1 month according to report from pts. daughter. Pt. states she is picky regarding food and does not like the food at [facility]. Daughter is concerned w/improperly fitting dentures. Nutrition consult ordered for PO supplementation (pt. states she likes chocolate Ensure). Aspiration precautions w/meals. Advanced soft diet d/t concerns w/chewing. Monitor I&O and daily weight. (4) Hypocalcemia Current visit: Yes Status: Acute Acute hypocalcemia w/calcium level of 8.5 on admission. Calcium carbonate 1,000 mg TID. Monitor f/u labs. (5) Dementia Current visit: Yes Status: Chronic Dementia and problems w/short-term memory. Pt. is oriented to person and date. Falls/safety precautions. Monitor pt. for neurological changes. Consider sitter if pt. becomes combative. Qualifiers: Dementia type: unspecified type Dementia behavioral disturbance: without behavioral disturbance Qualified Code(s): F03.90 - Unspecified dementia without behavioral disturbance (6) Sacral decubitus ulcer Current visit: Yes Status: Chronic Stage IV sacral decubitus ulcer that daughter states is chronic. Pt. currently has WBC of 14.9 on admission. Wound culture. Wound Care consult. Daily wound care ordered. Qualifiers: Pressure ulcer stage: stage 4 Qualified Code(s): L89.154 - Pressure ulcer of sacral region, stage 4 (7) Weakness Current visit: Yes Status: Chronic Acute weakness. Falls/safety precautions. PT/OT consults to conservatively assess pt. for strength, stability, and safety d/t report of independent ambulation in early December. (8) Atrial fibrillation Current visit: Yes Status: Chronic Hx of chronic paroxysmal atrial fibrillation. Continuous cardiac telemetry. Continue patient's amiodarone. Qualifiers: Atrial fibrillation type: paroxysmal Qualified Code(s): I48.0 - Paroxysmal atrial fibrillation (9) HTN (hypertension) Current visit: Yes Status: Chronic Hx of chronic HTN. Patient does not currently take HTN medication. Monitor patient in vital signs. Will add hydralazine if pt. becomes hypertensive. Qualifiers: Hypertension type: essential hypertension Qualified Code(s): I10 - Essential (primary) hypertension (10) Thyroid disease Current visit: Yes Status: Chronic Hx of chronic thyroid disease. Continue pts. Synthroid. (11) Anxiety and depression Current visit: Yes Status: Chronic Hx of chronic anxiety and depression. Continue patient's Zoloft and mirtazapine. (12) DVT prophylaxis Current visit: Yes Status: Acute Continue pts. Coumadin w/pharmacy dosing for DVT prophylaxis. Monitor pt. for signs of bleeding. Internal Medicine - H&P: HPI Chief complaint: Fall Admitted From: Emergency Dept Plans for Post Hospital Care: [facility] History of present illness: Ms. El is a 86 year old female with medical hx of chronic atrial fibrillation, HTN, and thyroid disease presents from the ED with chief complaint of fall sustained this morning at [facility]. Patient sustained a mechanical fall from bed with abrasions to face (upper lip and nose). Patient is altered on exam and is only oriented to person and date. Daughter and son-in-law present state patient was found on floor at SNF but were not told of the fall. They also report patient has lost 50 pounds over the past 4 weeks unintentionally. They state patient has sacral decubitus ulcer that is chronic and the patient was able to ambulate from wheelchair to lift chair successfully up until the first week of December. Patient reports weakness but denies recent illness, fever, chills, nausea, vomiting, headache, chest pain, shortness of breath, palpitations, numbness, tingling, abdominal pain, diarrhea, constipation, dizziness, lightheadedness, pre-syncope, or syncope. Past Med Surg Social Fam HX - Past Medical History Source: patient, old records reviewed, obtained from family Medical history: atrial fibrillation, hypertension, thyroid disease Psychiatric history: anxiety, depression - Past Surgical History Surgical History: cholecystectomy, knee replacement (Bilateral), orthopedic, other, other - Social History Smoking Status: Never smoker Smokeless Tobacco Status: No Alcohol use: none Drug use: none Current living situation: Assisted Living Activity Level: Wheelchair bound Recent Out of Country Travel Within the Last 8 Weeks: No Exposure or Possible Exposure to Illness During Travel: No - Family History Father Race: Family Member Ethnicity: Non- Living Status: Age at : 79 Cause of : Stomach cancer Hx Family Cancer: Yes (Stomach) Mother Race: Family Member Ethnicity: Non- Living Status: Age at : 78 Cause of : Stroke Hx Family Cardiac Disorders: Yes (Stroke) Hx Family Endocrine Disorder: Yes (DM) Brother Race: Family Member Ethnicity: Non- Living Status: Age at : 72 Cause of : Lung cancer Hx Family Cancer: Yes (Lung) Sister Race: Family Member Ethnicity: Non- Living Status: Age at : 73 Cause of : AL Hx Family Cardiac Disorders: Yes (AL, Valve replacement) Internal Medicine - H&P: Meds Amiodarone [Cordarone] 200 mg PO DAILY 12/30/16 [History] Levothyroxine Sodium 200 mcg PO DAILY 12/30/16 [History] Warfarin [Coumadin] 2.5 mg PO WEFR 12/30/16 [History] Warfarin [Coumadin] 5 mg PO SUMOTUTHSA 12/30/16 [History] Polyethylene Glycol 3350 [MiraLAX] 17 gm PO DAILY PRN powd.pack 01/01/17 [Rx] Ascorbic Acid [Vitamin C] 500 mg PO DAILY 02/27/17 [History] Calcium Carbonate [Calcium] 500 mg PO DAILY 02/27/17 [History] Furosemide [Lasix] 20 mg PO DAILY PRN 02/27/17 [History] Mirtazapine [Mirtazapine] 7.5 mg PO HS 02/27/17 [History] Sennosides/Docusate Sodium [Senna-Docusate Sodium Tablet] 1 tab PO BID PRN 02/27 [History] Sertraline [Zoloft] 50 mg PO DAILY 02/27/17 [History] 3 Allergy/AdvReac Type Severity Reaction Status Date / Time meperidine [From Demerol] AdvReac Unresponsiv Verified 12/30/16 11:12 e All Systems PM: A 10-system review of systems was performed and is negative for pertinent findings except as documented above in the HPI. - Constitutional Constitutional: as per HPI, anorexia, falls, weakness, no chills, no fever(s), no night sweats - EENT Eyes: no change in vision, no discharge, no pain, no photophobia Ears: no ear discharge, no ear pain, no tinnitus Nose, mouth and throat: no dysphagia, no nasal discharge, no neck pain, no sore throat - Breasts Breasts: as per HPI - Cardiovascular Cardiovascular ROS IM: as per HPI, irregular heart rhythm, no chest pain, no diaphoresis, no dyspnea, no lightheadedness, no palpitations, no syncope - Respiratory Respiratory: no cough, no dyspnea, no wheezing, no excessive phlegm production - Gastrointestinal Gastrointestinal: no abdominal pain, no diarrhea, no hematemesis, no hematochezia, no melena, no nausea, no vomiting - Genitourinary Genitourinary: no change in urinary stream, no dysuria, no flank pain, no hematuria Menstruation: as per HPI - Musculoskeletal Musculoskeletal ROS IM: no numbness, no tingling - Integumentary Integumentary IM: as per HPI, no rash, no unusual bruising - Neurological Neurological ROS: as per HPI, confusion, frequent falls, weakness, no convulsions, no focal weakness, no numbness, no tingling, no tremor(s) - Psychiatric Psychiatric: as per HPI - Endocrine Endocrine IM: as per HPI - Hematologic/Lymphatic Hematologic/Lymphatic: no easy bruising - Allergic/Immunologic Allergic/Immunologic: as per HPI - Constitutional Vitals: Temp Pulse Resp BP Pulse Ox 97.4 F L 58 18 120/63 96 02/27/17 07:58 02/27/17 11:54 02/27/17 11:54 02/27/17 11:54 02/27/17 11:54 General appearance: Present: A&O X 2, pleasant, no acute distress, obese, answers questions appropriately (With repeated attempts and help from family) - Head Additional comments: Abrasions to nose and upper lift most likely from fall this morning. - Eye Eye exam: Present: PERRL, conjuntiva pink, sclera anicteric Pupils: Present: PERRL - ENT ENT exam: Present: normal exam - Neck Neck exam general surgery: Present: normal inspection - Respiratory Respiratory exam: Present: CTAB. Absent: accessory muscle use, rales, rhonchi, wheezes - Cardiovascular Cardiovascular exam: Present: RRR, +S1, +S2. Absent: diastolic murmur, gallop, rubs, systolic murmur - GI/Abdominal GI/Abdominal exam: Present: normal bowel sounds, soft, no peritoneal signs. Absent: distended, tenderness - Rectal Rectal exam: Present: deferred - Additional comments: exam deferred. - Extremities Exam Extremities exam: Present: pedal edema, tenderness (Bilateral knees) - Neurological Exam Neurological exam: Present: altered, CN II-XII intact, no focal deficits. Absent: pronater drift, facial droop, speech deficit - Psychiatric Psychiatric exam: Present: normal affect, normal mood - Skin Additional comments: Bruising noted on lower ankles, right worse than left. Sacrum decubitus ulcer. Internal Med - H&P Results - Labs CBC & Chem 7: 02/27/17 09:38 02/27/17 09:38 - EKG Data EKG shows normal: sinus rhythm - EKG Data Prior EKG available for review: yes EKG comments: 02/27/17 14:25 EKG dated 12/30/16 shows sinus bradycardia and borderline left axis deviation. EKG dated 02/28/16 shows sinus rhythm with marked left axis deviation, moderate intraventricular conduction delay, and nonspecific T-wave abnormality. - Diagnostic Studies Chest x-ray Additional comments: Impressions Chest X-Ray 02/27/17 08:01 IMPRESSION: No acute cardiac or pulmonary disease. D/ / Josemanule Bauer MD / Josemanuel Bauer MD Interpreting Provider: Josemanuel Bauer MD CT scan - head Additional comments: Impressions Head CT 02/27/17 08:01 IMPRESSION: No acute intracranial abnormality. D/ / Janet Mckenzie / Janet Mckenzie Interpreting Provider: Janet Mckenzie Other Images Additional comments: Impressions Cervical Spine CT 02/27/17 08:01 IMPRESSION: No acute fracture. D/ / Sarah Franklin MD / Sarah Franklin MD Interpreting Provider: Sarah Franklin MD Hip/Pelvis X-Ray 02/27/17 08:31 IMPRESSION: 1. Stable postsurgical changes in the right proximal femur from prior fracture fixation. Hardware appears stable in alignment. 2. No acute osseous abnormality. Given the degree of osteopenia, nondisplaced fractures may be radiographically occult. If pain or concern for fracture persists, consider CT or MR imaging. D/ / 02/27/2017 09:08:24 Veronika Paris MD / [facility] Interpreting Provider: Veronika Paris MD Knee X-Ray 02/27/17 08:32 IMPRESSION: Suspected fracture of the proximal right tibial shaft, lower margin of the AP projection. Follow-up AP and lateral views of the right tibia and fibula are recommended. No acute fracture with bilateral total knee replacement. Moderate irregularity and bony resorption around the prosthesis greater medially. Prior studies would be helpful for comparison if available. D/ / Josemanuel Bauer MD / Josemanuel Bauer MD Interpreting Provider: Josemanuel Bauer MD Tibia/Fibula X-Ray 02/27/17 09:19 IMPRESSION: 1. No definite acute fracture or dislocation of the tibia. The linear lucency is again seen on frontal view with no correlate on lateral view. Finding is favored to represent a nutrient channel; however, evaluation is moderately limited due to osteopenia. If there is clinical concern for nondisplaced fracture, CT of the lower extremity can be obtained. 2. Osteopenia. 3. Status post knee arthroplasty. The tibial component has been removed. D/ / 02/27/2017 09:54:06 Marycruz Barnard MD / [facility] Interpreting Provider: Marycruz Barnard MD
[2017-02-27 15:04] LABS: INR 1.8; Prothrombin Time 19.5 Seconds (9.4-12.1)
[2017-02-27] MEDS ORDERED: *HR* Warfarin 2.5 MG TABLET PO SCH (18:00)
[2017-02-27] MEDS ORDERED: Warfarin perPT PO PRN (18:00)
[2017-02-27] MEDS: Mirtazapine 15 MG TABLET PO SCH (21:58)
[2017-02-28] MEDS: 0.9 % Sodium Chloride 1,000 ML IVC SCH ×3 (01:55→21:11)
[2017-02-28 05:58] LABS: Basophils # 0.1 K/mcL (0.0-0.2); Basophils % 0.7 %; Eosinophils # 0.3 K/mcL (0.0-0.6); Eosinophils % 2.5 %; Hematocrit 40.1 % (35.3-44.9); Immature Granulocytes % 1.6 % (0-4); Lymphocytes # 1.4 K/mcL (0.6-4.6); Lymphocytes % 10.9 %; Mean Corpuscular HGB Conc 31.9 g/dL (31.6-35.5); Mean Corpuscular Hemoglobin 30.8 pg (28.0-33.3); Mean Corpuscular Volume 96.6 fL (83.0-100.0); Mean Platelet Volume 10.5 fL (9.4-12.4); Monocytes % 8.1 %; Neutrophils # 9.7 K/mcL (1.6-8.9); Platelet Count 334 K/mcL (140-400); Red Blood Count 4.15 M/mcL (3.82-4.97); Segmented Neutrophils % 76.2 %
[2017-02-28 05:59] LABS: Hemoglobin 12.8 g/dL (11.5-15.4)
[2017-02-28 06:01] LABS: Prothrombin Time 21.6 Seconds (9.4-12.1)
[2017-02-28 06:33] LABS: Alanine Aminotransferase 30 Units/L (7-52); Albumin 2.5 g/dL (3.5-5.7); Albumin/Globulin Ratio 0.9 (1.1-2.2); Alkaline Phosphatase 86 Units/L (34-104); Aspartate Amino Transferase 44 Units/L (13-39); BUN/Creatinine Ratio 38 (6-26); Bilirubin,Total 0.8 mg/dL (0.3-1.0); Blood Urea Nitrogen 19 mg/dL (8-23); Carbon Dioxide 25 mEq/L (23-29); Chloride 109 mEq/L (98-107); Chol/HDL Ratio 4.5 (0-4.9); Cholesterol 125 mg/dL (< 200); Globulin 2.7 g/dL (2.4-3.5); Glucose 75 mg/dL (70-105); HDL Cholesterol 28 mg/dL (40-59); LDL Cholesterol,Calculated 81 mg/dL (0-99); Osmolality,Calculated 297 (280-300); Potassium 3.4 mEq/L (3.5-5.1); Sodium 143 mEq/L (136-145); Total Protein 5.2 g/dL (6.4-8.9); Triglycerides 82 mg/dL (< 150); eGFR For African Americans > 60 (> 60); eGFR For Non-African Americans > 60 (> 60)
[2017-02-28] MEDS: *HR* Amiodarone 200 MG TABLET PO SCH (10:30)
[2017-02-28] MEDS: Ascorbic Acid 500 MG TABLET PO SCH (10:30)
--- NOTE | 2017-02-28 11:52 | Internal Med Progress Note ---
Date of Encounter: 02/28/17 Time of Encounter: 11:45 - Assessment and plan (1) Atrial fibrillation Current Visit: Yes Status: Chronic Assessment and plan: Continue amiodarone. Continue Coumadin per pharmacy. Qualifiers: Atrial fibrillation type: paroxysmal Qualified Code(s): I48.0 - Paroxysmal atrial fibrillation (2) Thyroid disease Current Visit: Yes Status: Chronic Assessment and plan: Continue levothyroxine. (3) Frequent falls Current Visit: Yes Status: Acute Assessment and plan: Multiple bruises are noted. The patient has no significant fractures. Orthopedics is following with conservative management plan. Continue pain control. Continue with physical therapy and occupational therapy evaluation (4) Sacral decubitus ulcer Current Visit: Yes Status: Chronic Assessment and plan: Consult wound. Follow-up on cultures. Qualifiers: Pressure ulcer stage: stage 4 Qualified Code(s): L89.154 - Pressure ulcer of sacral region, stage 4 (5) Leukocytosis Current Visit: Yes Status: Acute Assessment and plan: WBC count is trending down. No enteritis or started. Likely reactive. Qualifiers: Leukocytosis type: unspecified Qualified Code(s): D72.829 - Elevated white blood cell count, unspecified (6) Weight loss, unintentional Current Visit: Yes Status: Acute Assessment and plan: Financial Rep has been consulted. (7) DVT prophylaxis Current Visit: Yes Status: Acute Assessment and plan: On Coumadin. - Subjective Interval history: No acute events. The patient [facility] after she had sustained a fall. Multiple abrasions and contusions noted. No surgical needs. Orthopedics. She has been afebrile. Pain is well controlled. - Constitutional Vitals: Temp Pulse Resp BP Pulse Ox 98.9 F 57 16 118/61 97 02/28/17 07:49 02/28/17 07:49 02/28/17 07:49 02/28/17 07:49 02/28/17 07:49 General appearance: Present: A&O X 2, pleasant, no acute distress, obese, answers questions appropriately (With repeated attempts and help from family) Exam: GEN: NAD CVS: RRR. S1, S2, No m/r/g RESP: CTAB ABD: Soft, NT, ND, +BS EXT: No edema. 2+ DP. Bruising noted on lower ankles, right worse than left. Sacrum decubitus ulcer. NEURO: Nonfocal Internal Medicine: Result - Labs CBC & Chem 7: 02/28/17 05:40 02/28/17 05:40 Labs: Short CBC 02/28/17 Range/Units 05:40 WBC 12.7 H (4.3-11.1) K/mcL Hgb 12.8 D (11.5-15.4) g/dL Hct 40.1 (35.3-44.9) % Plt Count 334 (140-400) K/mcL Neutrophils # 9.7 H (1.6-8.9) K/mcL BMP 02/28/17 05:40 Sodium 143 Potassium 3.4 L Chloride 109 H Carbon Dioxide 25 BUN 19 Creatinine 0.50 L Glucose 75 Calcium 8.0 L Liver Function 02/28/17 Range/Units 05:40 Total Bilirubin 0.8 (0.3-1.0) mg/dL AST 44 H (13-39) Units/L ALT 30 (7-52) Units/L Alkaline Phosphatase 86 (34-104) Units/L Albumin 2.5 L (3.5-5.7) g/dL - ABG Interpretation ABG results: PT/INR, D-dimer PT 21.6 Seconds (9.4-12.1) H 02/28/17 05:40 - Impressions Impressions Lower Extremity CT 02/27/17 16:00 IMPRESSION: 1. No fracture or other acute osseous abnormality identified in the bilateral lower extremities. 2. Status post right total knee arthroplasty without complication identified. 3. Status post left total knee arthroplasty with marked interface widening about the tibial component compatible with osteolysis versus loosening. Septic arthritis is also possibility and if clinically indicated please consider arthrocentesis. 4. 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 D/ / Car Caballero MD / Car Caballero MD Interpreting Provider: Car Caballero MD Lower Extremity CT 02/27/17 16:00 IMPRESSION: 1. No fracture or other acute osseous abnormality identified in the bilateral lower extremities. 2. Status post right total knee arthroplasty without complication identified. 3. Status post left total knee arthroplasty with marked interface widening about the tibial component compatible with osteolysis versus loosening. Septic arthritis is also possibility and if clinically indicated please consider arthrocentesis. 4. 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 D/ / Car Caballero MD / Car Caballero MD Interpreting Provider: Car Caballero MD Consult Discharge Plan - Plan Referrals: Abby Cunningham [Primary Care Provider] -
--- NOTE | 2017-02-28 15:32 | Orthopedics Progress Note ---
Date of Encounter: 02/28/17 Time of Encounter: 15:27 Subjective Principal diagnosis: Bilateral knee pain Interval history: 02/29/2016. I reviewed the CT scans the patient had completed of both of her knees. The right knee shows some chronic changes about her cemented three-part total knee arthroplasty. The findings are all chronic without any acute changes noted. There are no grossly worrisome findings. The left knee likewise shows chronic changes. This is also a cemented three-part total knee arthroplasty. The patient does have an all polyethylene tibial component. 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 I suspect that her tibial component is broken or bending under the stress medially. The lytic changes seen about the prosthesis to appear to be chronic. There are changes consistent with some fragmentation of the medial tibial plateau, again these are not acute. Based on these CT findings as well as her clinical exam I would not recommend any intervention. If any intervention were to be entertained would be a major undertaking requiring revision total knee arthroplasty and/or conversion of a failed right femoral nail to a total hip arthroplasty. I do not feel that the patient is a candidate for such surgery and will recommend to continue with activity modification, pain management, etc. Objective Vital signs: Vital Signs Temp Pulse Resp BP Pulse Ox 02/28/17 12:41 98.3 F 64 16 137/78 94 02/28/17 07:49 98.9 F 57 16 118/61 97 02/28/17 04:15 98.7 F 58 16 123/68 97 02/27/17 23:58 98.9 F 59 14 107/55 94 02/27/17 19:24 98.2 F 79 16 127/71 96 02/27/17 15:58 97.9 F 52 17 118/55 96 Intake and Output 02/27/17 02/28/17 02/28/17 23:59 07:59 15:59 Intake Total 120 / 120 Balance 120 / 120 Intake: Oral 120 / 120 Other: Meal Breakfast Percent of Meal Consumed 50% # Urine Diapers 1 - Diagnostic Results Knee CT: image reviewed - Labs CBC & BMP: 02/28/17 05:40 02/28/17 05:40 Labs: Abnormal lab results WBC 12.7 K/mcL (4.3-11.1) H 02/28/17 05:40 RDW 15.0 % (11.5-14.5) H 02/28/17 05:40 Neutrophils # 9.7 K/mcL (1.6-8.9) H 02/28/17 05:40 PT 21.6 Seconds (9.4-12.1) H 02/28/17 05:40 Potassium 3.4 mEq/L (3.5-5.1) L 02/28/17 05:40 Chloride 109 mEq/L (98-107) H 02/28/17 05:40 Creatinine 0.50 mg/dL (0.60-1.20) L 02/28/17 05:40 BUN/Creatinine Ratio 38 (6-26) H 02/28/17 05:40 Calcium 8.0 mg/dL (8.6-10.3) L 02/28/17 05:40 AST 44 Units/L (13-39) H 02/28/17 05:40 Serum Total Protein 5.2 g/dL (6.4-8.9) L 02/28/17 05:40 Albumin 2.5 g/dL (3.5-5.7) L 02/28/17 05:40 Albumin/Globulin Ratio 0.9 (1.1-2.2) L 02/28/17 05:40 HDL Cholesterol 28 mg/dL (40-59) L 02/28/17 05:40 Consult Discharge Plan - Plan Referrals: Abby Cunningham [Primary Care Provider] -
[2017-02-28] MEDS: *HR* Warfarin 5 MG TABLET PO SCH (18:14)
[2017-02-28] MEDS: Mirtazapine 15 MG TABLET PO SCH (21:10)
[2017-03-01 00:29] LABS: Bilirubin,Urine Negative (Negative); Blood,Urine Negative (Negative); Color,Urine Dark Yellow (Yellow); Glucose,Urine (UA) Normal (Normal); Ketones,Urine Trace mg/dL (Negative); Leukocyte Esterase,Urine Small (Negative); Nitrite,Urine Positive (Negative); PH,Urine 5.5 pH Units (5.0-8.0); Protein,Urine Negative (Neg-Trace); Specific Gravity,Urine 1.017 (1.010-1.025); Urobilinogen,Urine Normal (Normal)
[2017-03-01 00:31] LABS: Clarity,Urine Hazy (Clear)
[2017-03-01 01:05] LABS: Bacteria,Urine Many per hpf (None-Few); WBC,Urine 0-3 per hpf (0-3)
[2017-03-01 04:56] LABS: Basophils # 0.1 K/mcL (0.0-0.2); Basophils % 0.5 %; Eosinophils # 0.3 K/mcL (0.0-0.6); Eosinophils % 2.6 %; Hematocrit 39.7 % (35.3-44.9); Immature Granulocytes % 0.9 % (0-4); Lymphocytes # 1.6 K/mcL (0.6-4.6); Lymphocytes % 12.3 %; Mean Corpuscular HGB Conc 32.7 g/dL (31.6-35.5); Mean Corpuscular Hemoglobin 31.4 pg (28.0-33.3); Mean Corpuscular Volume 95.9 fL (83.0-100.0); Mean Platelet Volume 10.5 fL (9.4-12.4); Monocytes # 1.2 K/mcL (0.0-1.3); Monocytes % 8.9 %; Neutrophils # 9.7 K/mcL (1.6-8.9); Platelet Count 322 K/mcL (140-400); Red Blood Count 4.14 M/mcL (3.82-4.97); Red Cell Distribution Width 15.3 % (11.5-14.5); Segmented Neutrophils % 74.8 %
[2017-03-01 05:01] LABS: INR 2.1; Prothrombin Time 22.8 Seconds (9.4-12.1)
[2017-03-01 05:17] LABS: Alanine Aminotransferase 30 Units/L (7-52); Albumin 2.5 g/dL (3.5-5.7); Albumin/Globulin Ratio 0.9 (1.1-2.2); Alkaline Phosphatase 90 Units/L (34-104); Aspartate Amino Transferase 42 Units/L (13-39); BUN/Creatinine Ratio 44 (6-26); Bilirubin,Total 0.7 mg/dL (0.3-1.0); Blood Urea Nitrogen 18 mg/dL (8-23); Calcium 7.9 mg/dL (8.6-10.3); Carbon Dioxide 25 mEq/L (23-29); Chloride 111 mEq/L (98-107); Globulin 2.9 g/dL (2.4-3.5); Glucose 85 mg/dL (70-105); Osmolality,Calculated 293 (280-300); Potassium 3.8 mEq/L (3.5-5.1); Sodium 141 mEq/L (136-145); Total Protein 5.4 g/dL (6.4-8.9); eGFR For African Americans > 60 (> 60); eGFR For Non-African Americans > 60 (> 60)
[2017-03-01] MEDS: Ascorbic Acid 500 MG TABLET PO SCH (10:38)
[2017-03-01] MEDS: *HR* Amiodarone 200 MG TABLET PO SCH (10:38)
[2017-03-01] MEDS: 0.9 % Sodium Chloride 1,000 ML IVC SCH ×3 (10:38→23:46)
--- NOTE | 2017-03-01 11:13 | Internal Med Progress Note ---
Date of Encounter: 03/01/17 Time of Encounter: 09:00 - Assessment and plan (1) Atrial fibrillation Current Visit: Yes Status: Chronic Assessment and plan: Continue amiodarone. Continue Coumadin per pharmacy. Qualifiers: Atrial fibrillation type: paroxysmal Qualified Code(s): I48.0 - Paroxysmal atrial fibrillation (2) Thyroid disease Current Visit: Yes Status: Chronic Assessment and plan: Continue levothyroxine. (3) Frequent falls Current Visit: Yes Status: Acute Assessment and plan: Multiple bruises are noted. The patient has no significant fractures. Orthopedics is following with conservative management plan. Continue pain control. Continue with physical therapy and occupational therapy evaluation and will work on placement starting tomorrow after the weekend. (4) Sacral decubitus ulcer Current Visit: Yes Status: Chronic Assessment and plan: Consult wound. Follow-up on cultures. Start Zosyn given the consistent elevated white count. She has been afebrile. Qualifiers: Pressure ulcer stage: stage 4 Qualified Code(s): L89.154 - Pressure ulcer of sacral region, stage 4 (5) Leukocytosis Current Visit: Yes Status: Acute Assessment and plan: Possibly coming from the decubitus ulcer. No other signs of infection. We will start Zosyn given the elevated white count consistently. Qualifiers: Leukocytosis type: unspecified Qualified Code(s): D72.829 - Elevated white blood cell count, unspecified (6) Weight loss, unintentional Current Visit: Yes Status: Acute Assessment and plan: Global Technical Writer has been consulted. (7) DVT prophylaxis Current Visit: Yes Status: Acute Assessment and plan: On Coumadin. - Subjective Interval history: No acute events. Pain seems to be well controlled. She says she feels about the same. She has been afebrile. He continues to have a white count. The patient was admitted 02/27/2017 from residential facility after she had sustained a fall. Multiple abrasions and contusions noted. No surgical needs. She has been afebrile. - Constitutional Vitals: Temp Pulse Resp BP Pulse Ox 98.1 F 51 14 122/70 97 03/01/17 07:07 03/01/17 07:07 03/01/17 07:07 03/01/17 07:07 03/01/17 07:07 General appearance: Present: A&O X 2, pleasant, no acute distress, obese, answers questions appropriately (With repeated attempts and help from family) Exam: GEN: NAD CVS: RRR. S1, S2, No m/r/g RESP: CTAB ABD: Soft, NT, ND, +BS EXT: No edema. 2+ DP. Bruising noted on lower ankles, right worse than left. Sacrum decubitus ulcer. NEURO: Nonfocal Internal Medicine: Result - Labs CBC & Chem 7: 03/01/17 04:22 03/01/17 04:22 Labs: Short CBC 03/01/17 Range/Units 04:22 WBC 12.9 H (4.3-11.1) K/mcL Hgb 13.0 (11.5-15.4) g/dL Hct 39.7 (35.3-44.9) % Plt Count 322 (140-400) K/mcL Neutrophils # 9.7 H (1.6-8.9) K/mcL BMP 03/01/17 04:22 Sodium 141 Potassium 3.8 Chloride 111 H Carbon Dioxide 25 BUN 18 Creatinine 0.41 L Glucose 85 Calcium 7.9 L Liver Function 03/01/17 Range/Units 04:22 Total Bilirubin 0.7 (0.3-1.0) mg/dL AST 42 H (13-39) Units/L ALT 30 (7-52) Units/L Alkaline Phosphatase 90 (34-104) Units/L Albumin 2.5 L (3.5-5.7) g/dL Urine 03/01/17 Range/Units 00:20 Urine Color Dark Yellow (Yellow) Urine Clarity Hazy A (Clear) Urine pH 5.5 (5.0-8.0) pH Units Ur Specific Wayne 1.017 (1.010-1.025) Urine Protein Negative (Neg-Trace) mg/dL Urine Glucose (UA) Normal (Normal) mg/dL - ABG Interpretation ABG results: PT/INR, D-dimer PT 22.8 Seconds (9.4-12.1) H 03/01/17 04:22 Consult Discharge Plan - Plan Referrals: Abby Cunningham [Primary Care Provider] -
[2017-03-01] MEDS: Piperacillin/Tazobactam 3.375 GM/200 ML BAG IVPB SCH ×2 (16:07→18:23)
[2017-03-01] MEDS: *HR* Warfarin 5 MG TABLET PO SCH (18:41)
[2017-03-01] MEDS: Mirtazapine 15 MG TABLET PO SCH (19:40)
[2017-03-02] MEDS: Piperacillin/Tazobactam 3.375 GM/200 ML BAG IVPB SCH ×3 (03:31→19:02)
[2017-03-02 05:50] LABS: Basophils # 0.1 K/mcL (0.0-0.2); Basophils % 0.6 %; Eosinophils # 0.3 K/mcL (0.0-0.6); Eosinophils % 2.8 %; Hematocrit 38.4 % (35.3-44.9); Hemoglobin 12.5 g/dL (11.5-15.4); Immature Granulocytes % 1.2 % (0-4); Lymphocytes % 17.2 %; Mean Corpuscular HGB Conc 32.6 g/dL (31.6-35.5); Mean Corpuscular Hemoglobin 31.6 pg (28.0-33.3); Mean Platelet Volume 10.4 fL (9.4-12.4); Monocytes # 1.1 K/mcL (0.0-1.3); Monocytes % 9.2 %; Neutrophils # 8.1 K/mcL (1.6-8.9); Platelet Count 297 K/mcL (140-400); Red Blood Count 3.96 M/mcL (3.82-4.97); Red Cell Distribution Width 15.2 % (11.5-14.5)
[2017-03-02 05:55] LABS: INR 2.3; Prothrombin Time 25.6 Seconds (9.4-12.1)
[2017-03-02 06:19] LABS: Alanine Aminotransferase 31 Units/L (7-52); Albumin 2.3 g/dL (3.5-5.7); Albumin/Globulin Ratio 0.9 (1.1-2.2); Alkaline Phosphatase 80 Units/L (34-104); Aspartate Amino Transferase 46 Units/L (13-39); BUN/Creatinine Ratio 38 (6-26); Bilirubin,Total 0.8 mg/dL (0.3-1.0); Blood Urea Nitrogen 15 mg/dL (8-23); Calcium 7.6 mg/dL (8.6-10.3); Carbon Dioxide 24 mEq/L (23-29); Chloride 113 mEq/L (98-107); Globulin 2.7 g/dL (2.4-3.5); Glucose 73 mg/dL (70-105); Osmolality,Calculated 293 (280-300); Potassium 3.4 mEq/L (3.5-5.1); Sodium 142 mEq/L (136-145); eGFR For African Americans > 60 (> 60); eGFR For Non-African Americans > 60 (> 60)
[2017-03-02] MEDS: Ascorbic Acid 500 MG TABLET PO SCH (10:44)
[2017-03-02] MEDS: Sennosides/Docusate Sodium TABLET PO PRN (10:44)
[2017-03-02] MEDS: *HR* Amiodarone 200 MG TABLET PO SCH (10:44)
--- NOTE | 2017-03-02 13:07 | Internal Med Progress Note ---
Date of Encounter: 03/02/17 Time of Encounter: 10:00 - Assessment and plan (1) Frequent falls Current Visit: Yes Status: Acute Assessment and plan: Multiple bruises are noted. The patient has no significant fractures. Orthopedics is following with conservative management plan. Continue pain control. Continue with physical therapy and occupational therapy evaluation and will work on placement starting tomorrow after the weekend. (2) Leukocytosis Current Visit: Yes Status: Acute Assessment and plan: Her UA is positive. We will follow up on cultures. She is already on Zosyn which I started for her decubitus ulcer. Follow up on urine cultures. Qualifiers: Leukocytosis type: unspecified Qualified Code(s): D72.829 - Elevated white blood cell count, unspecified (3) Sacral decubitus ulcer Current Visit: Yes Status: Chronic Assessment and plan: Consult wound. Follow-up on cultures. Started Zosyn given the consistent elevated white count 03/01/2017. She has been afebrile. Qualifiers: Pressure ulcer stage: stage 4 Qualified Code(s): L89.154 - Pressure ulcer of sacral region, stage 4 (4) UTI (urinary tract infection) Current Visit: Yes Status: Acute Assessment and plan: Continue Zosyn. Follow up on cultures. Qualifiers: Urinary tract infection type: catheter-associated UTI Indwelling urinary catheter type: unspecified Encounter type: subsequent encounter Qualified Code(s): T83.511D - Infection and inflammatory reaction due to indwelling urethral catheter, subsequent encounter; N39.0 - Urinary tract infection, site not specified; N39.0 - Urinary tract infection, site not specified (5) Atrial fibrillation Current Visit: Yes Status: Chronic Assessment and plan: Continue amiodarone. Continue Coumadin per pharmacy. Qualifiers: Atrial fibrillation type: paroxysmal Qualified Code(s): I48.0 - Paroxysmal atrial fibrillation (6) Thyroid disease Current Visit: Yes Status: Chronic Assessment and plan: Continue levothyroxine. (7) Weight loss, unintentional Current Visit: Yes Status: Acute Assessment and plan: Immigration Case Worker has been consulted. (8) DVT prophylaxis Current Visit: Yes Status: Acute Assessment and plan: On Coumadin. - Subjective Interval history: No acute events. Pain seems to be well controlled. Urine was sent and came back positive for urinary tract infection. She has been afebrile. The patient was admitted 02/27/2017 from [facility] after she had sustained a fall. Multiple abrasions and contusions noted. No surgical needs. She has been afebrile. - Constitutional Vitals: Temp Pulse Resp BP Pulse Ox 97.5 F L 54 15 132/65 95 03/02/17 11:02 03/02/17 11:02 03/02/17 11:02 03/02/17 11:02 03/02/17 11:02 General appearance: Present: A&O X 2, pleasant, no acute distress, obese, answers questions appropriately (With repeated attempts and help from family) Exam: GEN: NAD CVS: RRR. S1, S2, No m/r/g RESP: CTAB ABD: Soft, NT, ND, +BS EXT: No edema. 2+ DP. Bruising noted on lower ankles, right worse than left. Sacrum decubitus ulcer. NEURO: Nonfocal Internal Medicine: Result - Labs CBC & Chem 7: 03/02/17 05:28 03/02/17 05:28 Labs: Short CBC 03/02/17 Range/Units 05:28 WBC 11.8 H (4.3-11.1) K/mcL Hgb 12.5 (11.5-15.4) g/dL Hct 38.4 (35.3-44.9) % Plt Count 297 (140-400) K/mcL Neutrophils # 8.1 (1.6-8.9) K/mcL BMP 03/02/17 05:28 Sodium 142 Potassium 3.4 L Chloride 113 H Carbon Dioxide 24 BUN 15 Creatinine 0.39 L Glucose 73 Calcium 7.6 L Liver Function 03/02/17 Range/Units 05:28 Total Bilirubin 0.8 (0.3-1.0) mg/dL AST 46 H (13-39) Units/L ALT 31 (7-52) Units/L Alkaline Phosphatase 80 (34-104) Units/L Albumin 2.3 L (3.5-5.7) g/dL - ABG Interpretation ABG results: PT/INR, D-dimer PT 25.6 Seconds (9.4-12.1) H 03/02/17 05:28 Consult Discharge Plan - Plan Referrals: Abby Cunningham [Primary Care Provider] -
[2017-03-02] MEDS: *HR* Warfarin 5 MG TABLET PO SCH (19:02)
[2017-03-02] MEDS: Mirtazapine 15 MG TABLET PO SCH (20:40)
[2017-03-03] MEDS: Piperacillin/Tazobactam 3.375 GM/200 ML BAG IVPB SCH ×3 (01:56→18:15)
[2017-03-03] MEDS: 0.9 % Sodium Chloride 1,000 ML IVC SCH ×3 (01:59→12:33)
[2017-03-03 04:45] LABS: Basophils % 0.4 %; Eosinophils # 0.4 K/mcL (0.0-0.6); Eosinophils % 3.6 %; Hematocrit 36.3 % (35.3-44.9); Hemoglobin 11.9 g/dL (11.5-15.4); Immature Granulocytes % 0.7 % (0-4); Lymphocytes # 1.6 K/mcL (0.6-4.6); Lymphocytes % 14.3 %; Mean Corpuscular HGB Conc 32.8 g/dL (31.6-35.5); Mean Corpuscular Hemoglobin 31.6 pg (28.0-33.3); Mean Corpuscular Volume 96.3 fL (83.0-100.0); Mean Platelet Volume 10.9 fL (9.4-12.4); Monocytes % 9.1 %; Platelet Count 291 K/mcL (140-400); Red Blood Count 3.77 M/mcL (3.82-4.97); Red Cell Distribution Width 15.5 % (11.5-14.5); Segmented Neutrophils % 71.9 %
[2017-03-03 05:00] LABS: INR 2.7; Prothrombin Time 29.7 Seconds (9.4-12.1)
[2017-03-03 05:13] LABS: BUN/Creatinine Ratio 38 (6-26); Blood Urea Nitrogen 15 mg/dL (8-23); Calcium 7.6 mg/dL (8.6-10.3); Carbon Dioxide 24 mEq/L (23-29); Chloride 112 mEq/L (98-107); Glucose 88 mg/dL (70-105); Osmolality,Calculated 290 (280-300); Potassium 3.7 mEq/L (3.5-5.1); Sodium 140 mEq/L (136-145); eGFR For African Americans > 60 (> 60); eGFR For Non-African Americans > 60 (> 60)
--- NOTE | 2017-03-03 09:26 | Internal Med Progress Note ---
Date of Encounter: 03/03/17 Time of Encounter: 09:23 - Assessment and plan (1) Frequent falls Current Visit: Yes Status: Acute Assessment and plan: Multiple bruises are noted. The patient has no significant fractures. Orthopedics is following with conservative management plan. Continue pain control. Continue with physical therapy and occupational therapy evaluation. line assembly utility worker is on the case. (2) Leukocytosis Current Visit: Yes Status: Acute Assessment and plan: Improving. Her UA is positive. Cultures are still pending. She is already on Zosyn which I started for her decubitus ulcer. Qualifiers: Leukocytosis type: unspecified Qualified Code(s): D72.829 - Elevated white blood cell count, unspecified (3) Sacral decubitus ulcer Current Visit: Yes Status: Chronic Assessment and plan: Consult wound. Gram-negative rods from wound culture. Follow up on final cultures. Started Zosyn given the consistent elevated white count 03/01/2017. She has been afebrile. Qualifiers: Pressure ulcer stage: stage 4 Qualified Code(s): L89.154 - Pressure ulcer of sacral region, stage 4 (4) UTI (urinary tract infection) Current Visit: Yes Status: Acute Assessment and plan: Continue Zosyn. Follow up on cultures. Qualifiers: Urinary tract infection type: catheter-associated UTI Indwelling urinary catheter type: unspecified Encounter type: subsequent encounter Qualified Code(s): T83.511D - Infection and inflammatory reaction due to indwelling urethral catheter, subsequent encounter; N39.0 - Urinary tract infection, site not specified; N39.0 - Urinary tract infection, site not specified (5) Atrial fibrillation Current Visit: Yes Status: Chronic Assessment and plan: Continue amiodarone. Continue Coumadin per pharmacy. Qualifiers: Atrial fibrillation type: paroxysmal Qualified Code(s): I48.0 - Paroxysmal atrial fibrillation (6) Thyroid disease Current Visit: Yes Status: Chronic Assessment and plan: Continue levothyroxine. (7) Weight loss, unintentional Current Visit: Yes Status: Acute Assessment and plan: [employer] Mill Operator has been consulted. (8) DVT prophylaxis Current Visit: Yes Status: Acute Assessment and plan: On Coumadin. - Subjective Interval history: No acute events. Pain seems to be well controlled. She has been afebrile. The patient was admitted 02/27/2017 from [facility] facility after she had sustained a fall. Multiple abrasions and contusions noted. No surgical needs. She has been afebrile. - Constitutional Vitals: Temp Pulse Resp BP Pulse Ox 98.5 F 49 20 127/57 95 03/03/17 07:36 03/03/17 07:36 03/03/17 07:36 03/03/17 07:36 03/03/17 07:36 General appearance: Present: A&O X 2, pleasant, no acute distress, obese, answers questions appropriately (With repeated attempts and help from family) Exam: GEN: NAD CVS: RRR. S1, S2, No m/r/g RESP: CTAB ABD: Soft, NT, ND, +BS EXT: No edema. 2+ DP. Bruising noted on lower ankles, right worse than left. Sacrum decubitus ulcer. NEURO: Nonfocal Internal Medicine: Result - Labs CBC & Chem 7: 03/03/17 03:56 03/03/17 03:56 Labs: Short CBC 03/03/17 Range/Units 03:56 WBC 11.1 (4.3-11.1) K/mcL Hgb 11.9 (11.5-15.4) g/dL Hct 36.3 (35.3-44.9) % Plt Count 291 (140-400) K/mcL Neutrophils # 8.0 (1.6-8.9) K/mcL BMP 03/03/17 03:56 Sodium 140 Potassium 3.7 Chloride 112 H Carbon Dioxide 24 BUN 15 Creatinine 0.39 L Glucose 88 Calcium 7.6 L - ABG Interpretation ABG results: PT/INR, D-dimer PT 29.7 Seconds (9.4-12.1) H 03/03/17 03:56 Consult Discharge Plan - Plan Referrals: Abby Cunningham [Primary Care Provider] -
[2017-03-03] MEDS: Acetaminophen 325 MG TABLET PO PRN (09:37)
[2017-03-03] MEDS: Ascorbic Acid 500 MG TABLET PO SCH (09:38)
[2017-03-03] MEDS: Sennosides/Docusate Sodium TABLET PO PRN (09:38)
[2017-03-03] MEDS: *HR* Amiodarone 200 MG TABLET PO SCH (09:38)
[2017-03-03] MEDS: Mirtazapine 15 MG TABLET PO SCH (20:00)
[2017-03-04] MEDS: Piperacillin/Tazobactam 3.375 GM/200 ML BAG IVPB SCH (02:07)
[2017-03-04 06:02] LABS: Basophils # 0.1 K/mcL (0.0-0.2); Basophils % 0.6 %; Eosinophils # 0.6 K/mcL (0.0-0.6); Eosinophils % 5.6 %; Hematocrit 35.3 % (35.3-44.9); Hemoglobin 11.9 g/dL (11.5-15.4); Immature Granulocytes % 1.3 % (0-4); Lymphocytes # 1.7 K/mcL (0.6-4.6); Lymphocytes % 16.7 %; Mean Corpuscular HGB Conc 33.7 g/dL (31.6-35.5); Mean Corpuscular Hemoglobin 32.2 pg (28.0-33.3); Mean Corpuscular Volume 95.7 fL (83.0-100.0); Mean Platelet Volume 10.4 fL (9.4-12.4); Monocytes # 0.9 K/mcL (0.0-1.3); Monocytes % 8.8 %; Neutrophils # 6.9 K/mcL (1.6-8.9); Platelet Count 277 K/mcL (140-400); Red Blood Count 3.69 M/mcL (3.82-4.97); Red Cell Distribution Width 15.6 % (11.5-14.5)
[2017-03-04 06:10] LABS: Prothrombin Time 33.2 Seconds (9.4-12.1)
[2017-03-04 06:29] LABS: BUN/Creatinine Ratio 29 (6-26); Blood Urea Nitrogen 11 mg/dL (8-23); Calcium 7.3 mg/dL (8.6-10.3); Carbon Dioxide 25 mEq/L (23-29); Chloride 114 mEq/L (98-107); Glucose 77 mg/dL (70-105); Osmolality,Calculated 292 (280-300); Potassium 3.6 mEq/L (3.5-5.1); Sodium 142 mEq/L (136-145); eGFR For African Americans > 60 (> 60); eGFR For Non-African Americans > 60 (> 60)
--- NOTE | 2017-03-04 08:53 | Internal Med Progress Note ---
Date of Encounter: 03/04/17 Time of Encounter: 08:51 - Assessment and plan (1) Pseudomonas urinary tract infection Current Visit: Yes Status: Acute Assessment and plan: Start cefepime Discontinue Zosyn day 4 (2) Atrial fibrillation Current Visit: Yes Status: Chronic Assessment and plan: Continue amiodarone. Continue Coumadin per pharmacy. Qualifiers: Atrial fibrillation type: paroxysmal Qualified Code(s): I48.0 - Paroxysmal atrial fibrillation (3) HTN (hypertension) Current Visit: Yes Status: Chronic Assessment and plan: Stable Qualifiers: Hypertension type: essential hypertension Qualified Code(s): I10 - Essential (primary) hypertension (4) Frequent falls Current Visit: Yes Status: Acute Assessment and plan: Multiple bruises are noted. The patient has no significant fractures. Orthopedics is following with conservative management plan. Continue pain control. Continue with physical therapy and occupational therapy evaluation. roundhouse worker is on the case. Per Dr Love: The right knee shows some chronic changes about her cemented three -part total knee arthroplasty. The findings are all chronic without any acute changes noted. The left knee likewise shows chronic changes. This is also a cemented three-part total knee arthroplasty. The patient does have an all polyethylene tibial component. 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 Her tibial component might be broken or bending under the stress medially. The lytic changes seen about the prosthesis to appear to be chronic. There are changes consistent with some fragmentation of the medial tibial plateau, again these are not acute. Dr. Love would not recommend any intervention. If any intervention were to be entertained would be a major undertaking requiring revision total knee arthroplasty and/or conversion of a failed right femoral nail to a total hip arthroplasty. The patient is a candidate for such surgery (5) Dementia Current Visit: Yes Status: Chronic Qualifiers: Dementia type: unspecified type Dementia behavioral disturbance: without behavioral disturbance Qualified Code(s): F03.90 - Unspecified dementia without behavioral disturbance (6) Sacral decubitus ulcer Current Visit: Yes Status: Chronic Assessment and plan: Wound care Started Zosyn given the consistent elevated white count 03/01/2017. She has been afebrile. Qualifiers: Pressure ulcer stage: stage 4 Qualified Code(s): L89.154 - Pressure ulcer of sacral region, stage 4 - Subjective Interval history: Oriented in person and place, complains of bilateral knee pain, confused, feels weak, denies any chest pain or shortness of breath, no fevers, no dysuria. No diarrhea - Constitutional Vitals: Temp Pulse Resp BP Pulse Ox 97.9 F 50 15 126/73 92 03/04/17 06:57 03/04/17 06:57 03/04/17 06:57 03/04/17 06:57 03/04/17 06:57 General appearance: Present: A&O X 2, pleasant, no acute distress, obese, answers questions appropriately (With repeated attempts and help from family) - Head Head exam: Present: atraumatic, normocephalic - Eye Eye exam: Present: PERRL, conjuntiva pink, sclera anicteric Pupils: Present: PERRL - Neck Neck exam general surgery: Present: supple, trachea midline. Absent: lymphadenopathy - Respiratory Respiratory exam: Present: CTAB. Absent: accessory muscle use, rales, rhonchi, wheezes - Cardiovascular Cardiovascular exam: Present: RRR, +S1, +S2. Absent: diastolic murmur, gallop, rubs, systolic murmur - GI/Abdominal GI/Abdominal exam: Present: normal bowel sounds, soft, no peritoneal signs. Absent: distended, tenderness - Extremities Exam Extremities exam: Present: warm, radial pulses palpable and symmetrical. Absent : calf tenderness, cyanotic, pedal edema - Neurological Exam Neurological exam: Present: CN II-XII intact, no focal deficits. Absent: oriented X3, pronater drift, facial droop, speech deficit Additional comments: Both knees are chronically edematous - Skin Skin exam: Present: dry. Absent: intact (Chronic sacral decubitus ulcer) Internal Medicine: Result - Labs CBC & Chem 7: 03/04/17 05:47 03/04/17 05:47 Labs: Short CBC 03/04/17 Range/Units 05:47 WBC 10.3 (4.3-11.1) K/mcL Hgb 11.9 (11.5-15.4) g/dL Hct 35.3 (35.3-44.9) % Plt Count 277 (140-400) K/mcL Neutrophils # 6.9 (1.6-8.9) K/mcL BMP 03/04/17 05:47 Sodium 142 Potassium 3.6 Chloride 114 H Carbon Dioxide 25 BUN 11 Creatinine 0.38 L Glucose 77 Calcium 7.3 L - ABG Interpretation ABG results: PT/INR, D-dimer PT 33.2 Seconds (9.4-12.1) H 03/04/17 05:47 - VTE Documentation of Mechanical Device: Intermittent pneumatic compression device Consult Discharge Plan - Plan Referrals: Abby Cunningham [Primary Care Provider] -
[2017-03-04] MEDS ORDERED: Cefepime HCl 1,000 MG in D5% in Water (Mini-Bag+) 100 ML IVPB SCH (09:00)
[2017-03-04] MEDS: 0.9 % Sodium Chloride 1,000 ML IVC SCH ×4 (09:57→21:49)
[2017-03-04] MEDS: Cefepime HCl 1,000 MG in Water for inj. (sterile) 20 ML 10 ML IVP SCH ×2 (09:57→17:43)
[2017-03-04] MEDS: *HR* Amiodarone 200 MG TABLET PO SCH (09:57)
[2017-03-04] MEDS: Ascorbic Acid 500 MG TABLET PO SCH (09:57)
[2017-03-04] MEDS: Sennosides/Docusate Sodium TABLET PO PRN (12:57)
[2017-03-04] MEDS: Acetaminophen 325 MG TABLET PO PRN (13:00)
[2017-03-04] MEDS ORDERED: *HR* Warfarin 2.5 MG TABLET PO ONE (18:00)
[2017-03-05] MEDS: Mirtazapine 15 MG TABLET PO SCH (01:09)
[2017-03-05] MEDS: Cefepime HCl 1,000 MG in Water for inj. (sterile) 20 ML 10 ML IVP SCH (05:14)
[2017-03-05 06:08] LABS: INR 2.5; Prothrombin Time 27.4 Seconds (9.4-12.1)
--- NOTE | 2017-03-05 09:13 | Discharge Summary ---
Date of Encounter: 03/05/17 Time of Encounter: 09:11 - Discharge Diagnosis (1) Pseudomonas urinary tract infection Priority: Primary Status: Acute (2) Atrial fibrillation Priority: Secondary Status: Chronic Comments: Continue amiodarone. Continue Coumadin Qualifiers: Atrial fibrillation type: paroxysmal Qualified Code(s): I48.0 - Paroxysmal atrial fibrillation (3) HTN (hypertension) Priority: Secondary Status: Chronic Qualifiers: Hypertension type: essential hypertension Qualified Code(s): I10 - Essential (primary) hypertension (4) Frequent falls Priority: Secondary Status: Acute Comments: Multiple bruises are noted. The patient has no significant fractures. Orthopedics is following with conservative management plan. Continue pain control. Continue with physical therapy and occupational therapy evaluation. athletic turf worker is on the case. Per Dr Love: The right knee showed some chronic changes about her cemented three-part total knee arthroplasty. The findings are all chronic without any acute changes noted. The left knee likewise showed chronic changes. This is also a cemented three-part total knee arthroplasty. The patient does have an all polyethylene tibial component. 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 Her tibial component might be broken or bending under the stress medially. The lytic changes seen about the prosthesis to appear to be chronic. There are changes consistent with some fragmentation of the medial tibial plateau, again these are not acute. Dr. Love would not recommend any intervention. If any intervention were to be entertained would be a major undertaking requiring revision total knee arthroplasty and/or conversion of a failed right femoral nail to a total hip arthroplasty. (5) Dementia Priority: Secondary Status: Chronic Qualifiers: Dementia type: unspecified type Dementia behavioral disturbance: without behavioral disturbance Qualified Code(s): F03.90 - Unspecified dementia without behavioral disturbance (6) Sacral decubitus ulcer Priority: Secondary Status: Chronic Qualifiers: Pressure ulcer stage: stage 4 Qualified Code(s): L89.154 - Pressure ulcer of sacral region, stage 4 - Discharge Medications Prescriptions: HYDROcodone/Acet 5/325 mg [[place] 5-325 mg] 1 tab PO Q4HR PRN #20 tablet PRN Reason: Moderate Pain (4-6) Cefepime HCl/Dextrose, Iso-Osm [Cefepime 1 gm Injection] 1 gm IV BID #4 mls Home Medications: Amiodarone [Cordarone] 200 mg PO DAILY 11/07/17 [History] Levothyroxine Sodium 200 mcg PO DAILY 12/30/16 [History] Warfarin [Coumadin] 2.5 mg PO WEFR 12/30/16 [History] Warfarin [Coumadin] 5 mg PO SUMOTUTHSA 12/30/16 [History] Polyethylene Glycol 3350 [MiraLAX] 17 gm PO DAILY PRN powd.pack 01/01/17 [Rx] Ascorbic Acid [Vitamin C] 500 mg PO DAILY 02/27/17 [History] Calcium Carbonate [Calcium] 500 mg PO DAILY 02/27/17 [History] Furosemide [Lasix] 20 mg PO DAILY PRN 02/27/17 [History] Mirtazapine 7.5 mg PO HS 02/27/17 [History] Sennosides/Docusate Sodium [Senna-Docusate Sodium Tablet] 1 tab PO BID PRN 02/27 [History] Sertraline [Zoloft] 50 mg PO DAILY 02/27/17 [History] Cefepime HCl/Dextrose, Iso-Osm [Cefepime 1 gm Injection] 1 gm IV BID #4 mls 01/10 [Rx] HYDROcodone/Acet 5/325 mg [[place] 5-325 mg] 1 tab PO Q4HR PRN #20 tablet [Rx] Allergies/Adverse Reactions: 3 Allergy/AdvReac Type Severity Reaction Status Date / Time meperidine [From Demerol] AdvReac Unresponsiv Verified 12/30/16 11:12 e Date of admission: 03/02/17 18:06 Primary care physician: Abby Cunninghma - Patient Status Disposition: Transfer SNF Condition: Fair Overall status at discharge: patient is progressing back to baseline - Discharge Instructions Follow Up With: Abby Cunningham [Primary Care Provider] - Additional Instructions: Follow-up with primary care physician after discharge from extended care facility. Continue 2 more days of cefepime IV. May follow-up with orthopedic surgery as needed - Diet and Activity Activity: as per physical therapy Diet: low fat, low cholesterol Hospital course: Ms. El is a 86 year old female with medical hx of chronic atrial fibrillation on Coumadin, HTN, and hypothyroidism presented to the ED with a chief complaint of fall sustaine at [facility]. Patient sustained a mechanical fall from bed with abrasions to face (upper lip and nose). Patient was altered on exam and was only oriented to person and date. Daughter and son-in-law stated that she was found on floor at SNF but were not told of the fall. They also reported that the patient has lost 50 pounds over the past 4 weeks unintentionally. She has a sacral decubitus ulcer that is chronic and the patient was able to ambulate from wheelchair to lift chair successfully up until the first week of December. X-rays of the right hip reveals a long trochanteric femoral nail with a blade into the head that is cut out. The head and neck are in a varus position. The compression has left the distal end of the blade lateral. Examination of her knee x-rays reveals bilateral total knee arthroplasties. These are 3 component knee replacements with an all polyethylene tibial component bilateral. The right knee shows a marked amount of osteoporotic changes and no acute fractures, there appears to be adequate cement mantle of all 3 components. No defined lucencies. Tremendous osteopenia changes. There are also vascular calcifications. She was found to have urinary tract infection, the urine culture was positive for Pseudomonas. She received 4 days of Zosyn which was switched to cefepime. She is stable to be discharged at this point. Also, patient was evaluated by Dr. Love from the orthopedic surgical service, comments are described above. - Time Spent with Patient Total time spent providing and/or coordinating discharge services: Greater than 30 minutes (40 min) - Constitutional Vitals: Temp Pulse Resp BP Pulse Ox 99.2 F 52 16 143/61 95 03/05/17 06:53 03/05/17 06:53 03/05/17 06:53 03/05/17 06:53 03/05/17 06:53 General appearance: Present: A&O X 2, pleasant, no acute distress, obese, answers questions appropriately (With repeated attempts and help from family) Exam: - Head Head exam: Present: atraumatic, normocephalic - Eye Eye exam: Present: PERRL, conjuntiva pink, sclera anicteric Pupils: Present: PERRL - Neck Neck exam general surgery: Present: supple, trachea midline. Absent: lymphadenopathy - Respiratory Respiratory exam: Present: CTAB. Absent: accessory muscle use, rales, rhonchi, wheezes - Cardiovascular Cardiovascular exam: Present: RRR, +S1, +S2. Absent: diastolic murmur, gallop, rubs, systolic murmur - GI/Abdominal GI/Abdominal exam: Present: normal bowel sounds, soft, no peritoneal signs. Absent: distended, tenderness - Extremities Exam Extremities exam: Present: warm, radial pulses palpable and symmetrical. Absent : calf tenderness, cyanotic, pedal edema - Neurological Exam Neurological exam: Present: CN II-XII intact, no focal deficits. Absent: oriented X3, pronater drift, facial droop, speech deficit Additional comments: Both knees are chronically edematous - VTE Documentation of Mechanical Device: Intermittent pneumatic compression device
--- NOTE | 2017-03-05 09:24 | Physician Discharge Referral ---
ExtendedCare Referral Info Provider in Charge after Transfer: PCP Institutional Level of Care: Skilled - Diagnosis (1) Pseudomonas urinary tract infection Status: Acute (2) Atrial fibrillation Status: Chronic (3) HTN (hypertension) Status: Chronic (4) Frequent falls Status: Acute (5) Dementia Status: Chronic (6) Sacral decubitus ulcer Status: Chronic - Transfer Medications Prescriptions: HYDROcodone/Acet 5/325 mg [[place] 5-325 mg] 1 tab PO Q4HR PRN #20 tablet PRN Reason: Moderate Pain (4-6) Cefepime HCl/Dextrose, Iso-Osm [Cefepime 1 gm Injection] 1 gm IV BID #4 mls Home Medications: Amiodarone [Cordarone] 200 mg PO DAILY 12/30/16 [History] Levothyroxine Sodium 200 mcg PO DAILY 12/30/16 [History] Warfarin [Coumadin] 2.5 mg PO WEFR 12/30/16 [History] Warfarin [Coumadin] 5 mg PO SUMOTUTHSA 12/30/16 [History] Polyethylene Glycol 3350 [MiraLAX] 17 gm PO DAILY PRN powd.pack 01/01/17 [Rx] Ascorbic Acid [Vitamin C] 500 mg PO DAILY 02/27/17 [History] Calcium Carbonate [Calcium] 500 mg PO DAILY 02/27/17 [History] Furosemide [Lasix] 20 mg PO DAILY PRN 02/27/17 [History] Mirtazapine 7.5 mg PO HS 02/27/17 [History] Sennosides/Docusate Sodium [Senna-Docusate Sodium Tablet] 1 tab PO BID PRN 02/27 [History] Sertraline [Zoloft] 50 mg PO DAILY 02/27/17 [History] Cefepime HCl/Dextrose, Iso-Osm [Cefepime 1 gm Injection] 1 gm IV BID #4 mls 01/10 [Rx] HYDROcodone/Acet 5/325 mg [[place] 5-325 mg] 1 tab PO Q4HR PRN #20 tablet [Rx] Allergies/Adverse Reactions: 3 Allergy/AdvReac Type Severity Reaction Status Date / Time meperidine [From Demerol] AdvReac Unresponsiv Verified 12/30/16 11:12 e - Respiratory Orders Smoking Cessation: Smoking cessation has been advised. For more information, call the [place] Tobacco Quit Line at 9-830-KSLA-NOW. - Advance Directives Code Status: Full Code - Treatments List/Other: Follow-up with primary care physician after discharge from extended care facility. Continue 2 more days of cefepime IV. May follow-up with orthopedic surgery as needed CERTIFICATION: I certify that the transfer of the above named patient to an Extended Care Facility is necessary for the continuing treatment of the diagnosis listed. The above information is true and accurate reflection of patient's current condition. Confidential - Redisclosure prohibited without a patient's written consent.
[2017-03-05] MEDS: 0.9 % Sodium Chloride 1,000 ML IVC SCH (09:28)
[2017-03-05] MEDS: *HR* Amiodarone 200 MG TABLET PO SCH (09:30)
[2017-03-05] MEDS: Ascorbic Acid 500 MG TABLET PO SCH (09:30)
[2017-03-05 10:49] VITALS: BP 137/71
[2017-03-05] MEDS ORDERED: *HR* Warfarin 5 MG TABLET PO ONE (18:00)
== END 2017-03-05 16:01 | DRG 698 ==
LOC: 3BNU 07:55 → EMEROO 07:55 → 3BNU 12:21 → SUATTDRO 03-02 18:06
PROVIDERS: ADMIT Registered Nurse; ATTEND Internal Medicine

== ENCOUNTER 2018-04-01 21:41 | Inpatient (IN) ==
[2018-04-01] MEDS ORDERED: 0.9 % Sodium Chloride 1,000 ML IVC ONE (22:24)
[2018-04-01 22:57] LABS: Basophils % 0.3 %; Mean Corpuscular HGB Conc 33.2 g/dL (31.6-35.5); Mean Platelet Volume 11.7 fL (9.4-12.4); Red Cell Distribution Width 15.9 % (11.5-14.5)
[2018-04-01 22:59] LABS: Basophils # 0.2 K/mcL (0.0-0.2); Hematocrit 37.3 % (35.3-44.9); Hemoglobin 12.4 g/dL (11.5-15.4); Lymphocytes % 1.8 %; Mean Corpuscular Volume 96.4 fL (83.0-100.0); Monocytes # 2.6 K/mcL (0.0-1.3); Monocytes % 4.9 %; Neutrophils # 47.5 K/mcL (1.6-8.9); Platelet Count 217 K/mcL (140-400); Red Blood Count 3.87 M/mcL (3.82-4.97)
[2018-04-01 23:06] LABS: INR 2.5; Prothrombin Time 28.5 Seconds (9.4-12.1)
[2018-04-01 23:19] LABS: Albumin 2.5 g/dL (3.5-5.7); Albumin/Globulin Ratio 0.8 (1.1-2.2); Bilirubin,Direct 0.3 mg/dL (0.0-0.2); Bilirubin,Indirect 0.6 mg/dL (0.0-1.2); Bilirubin,Total 0.9 mg/dL (0.3-1.0); Calcium 7.7 mg/dL (8.6-10.3); Globulin 3.2 g/dL (2.4-3.5); Potassium 4.4 mEq/L (3.5-5.1); Total Protein 5.7 g/dL (6.4-8.9)
[2018-04-01 23:26] LABS: Troponin I 0.05 ng/mL (< 0.04)
[2018-04-02 00:05] LABS: Bilirubin,Urine Small (Negative); Blood,Urine Large (Negative); Clarity,Urine Turbid (Clear); Color,Urine Red (Yellow); Glucose,Urine (UA) Normal (Normal); Ketones,Urine Trace mg/dL (Negative); Leukocyte Esterase,Urine Large (Negative); Nitrite,Urine Negative (Negative); Protein,Urine 100 mg/dL (Neg-Trace); Specific Gravity,Urine 1.007 (1.010-1.025); Urobilinogen,Urine Normal (Normal)
[2018-04-02 00:08] LABS: Bacteria,Urine Many per hpf (None-Few); Squamous Epithelial Cell,Urine Many per lpf (None-Few); WBC,Urine TNTC per hpf (0-3)
[2018-04-02 00:26] LABS: Hyaline Casts,Urine Few per lpf (None-Few); RBC,Urine 0-3 per hpf (0-3); Yeast,Urine Few per hpf (None Seen)
[2018-04-02] MEDS ORDERED: cefTRIAXone 1,000 MG in Water for inj. (sterile) 20 ML 10 ML IVP ONE (00:34)
[2018-04-02] MEDS ORDERED: Piperacillin/Tazobactam 3.375 GM in 0.9 % Sodium Chloride Mini Bag 100 ML IVPB ONE (00:39)
--- NOTE | 2018-04-02 00:47 | Emergency Department Note ---
Disposition Clinical Impression: Sepsis, Pyelonephritis, Hydronephrosis, Diverticulitis, Hypotension, Leukocytosis, Confusion Disposition: Admitted As Inpatient Condition: Serious Referrals: NONE,PCP [Primary Care Provider] - Forms: ED Satisfaction Letter, Work/School Release General Adult HPI - General Chief complaint: ED General Medical Stated complaint: lOW BP Time Seen by Provider: 04/01/18 21:49 Source: patient, EMS - History of Present Illness Pain Scale: 0 - Related Data Home Medications Medication Instructions Recorded Confirmed Amiodarone [Cordarone] 200 mg PO DAILY 12/30/16 03/16/17 Levothyroxine Sodium 200 mcg PO DAILY 12/30/16 03/16/17 Warfarin [Coumadin] 2.5 mg PO WEFR 12/30/16 03/16/17 Warfarin [Coumadin] 5 mg PO SUMOTUTHSA 12/30/16 03/16/17 Ascorbic Acid [Vitamin C] 500 mg PO DAILY 02/27/17 03/16/17 Calcium Carbonate [Calcium] 500 mg PO DAILY 02/27/17 03/16/17 Furosemide [Lasix] 20 mg PO DAILY PRN 02/27/17 03/16/17 Mirtazapine 7.5 mg PO HS 02/27/17 03/16/17 Sennosides/Docusate Sodium 1 tab PO BID PRN 02/27/17 03/16/17 [Senna-Docusate Sodium Tablet] Sertraline [Zoloft] 50 mg PO DAILY 02/27/17 03/16/17 Previous Rx's Medication Instructions Recorded Polyethylene Glycol 3350 [MiraLAX] 17 gm PO DAILY PRN powd.pack 01/01/17 Cefepime HCl/Dextrose, Iso-Osm 1 gm IV BID #4 mls 03/05/17 [Cefepime 1 gm Injection] HYDROcodone/Acet 5/325 mg [[place] 1 tab PO Q4HR PRN #20 tablet 03/05/17 5-325 mg] Allergies Allergy/AdvReac Type Severity Reaction Status Date / Time meperidine [From Demerol] AdvReac Unresponsiv Verified 12/30/16 11:12 e Past Medical History - Past Medical History Medical history: Reports: atrial fibrillation, cancer, hypertension, thyroid disease Surgical history: Reports: cholecystectomy, knee replacement, orthopedic, other, other Psychiatric history: Reports: anxiety, depression - Social History Smoking Status: Never smoker Smokeless Tobacco Status: No Alcohol use: Reports: none Drug use: Reports: none Physical Exam - General General appearance: alert Course Vital Signs Temperature 98.7 F 04/01/18 21:50 Pulse Rate 56 04/01/18 21:50 Respiratory Rate 22 04/01/18 21:50 Blood Pressure 91/44 04/01/18 21:50 O2 Sat by Pulse Oximetry 94 04/01/18 21:50 Temperature 98.7 F 04/01/18 21:50 Pulse Rate 60 04/01/18 23:58 Respiratory Rate 18 04/01/18 23:58 Blood Pressure 102/60 04/01/18 23:58 O2 Sat by Pulse Oximetry 95 04/01/18 23:58 Oxygen Delivery Oxygen Delivery Nasal Cannula Medical Decision Making - Medical Records Medical records reviewed: Yes I reviewed the patient's medical records. - Lab Data Lab results reviewed: Yes I reviewed the patient's lab results. Result diagrams: 04/01/18 22:39 04/01/18 22:39 Lab Results 04/01/18 04/01/18 04/01/18 Range/Units 22:38 22:39 22:39 WBC 52.8 H* (4.3-11.1) K/mcL RBC 3.87 (3.82-4.97) M/mcL Hgb 12.4 (11.5-15.4) g/dL Hct 37.3 (35.3-44.9) % MCV 96.4 (83.0-100.0) fL MCH 32.0 (28.0-33.3) pg MCHC 33.2 (31.6-35.5) g/dL RDW 15.9 H (11.5-14.5) % Plt Count 217 (140-400) K/mcL MPV 11.7 (9.4-12.4) fL Immature Gran % 3.0 (0-4) % Seg Neutrophils % 90.0 % Lymphocytes % 1.8 % Monocytes % 4.9 % Eosinophils % 0.0 % Basophils % 0.3 % Neutrophils # 47.5 H (1.6-8.9) K/mcL Lymphocytes # 1.0 (0.6-4.6) K/mcL Monocytes # 2.6 H (0.0-1.3) K/mcL Eosinophils # 0.0 (0.0-0.6) K/mcL Basophils # 0.2 (0.0-0.2) K/mcL PT 28.5 H (9.4-12.1) Seconds INR 2.5 Sodium 141 (136-145) mEq/L Potassium 4.4 (3.5-5.1) mEq/L Chloride 109 H (98-107) mEq/L Carbon Dioxide 21 L (23-29) mEq/L BUN 40 H (8-23) mg/dL Creatinine 1.14 (0.60-1.20) mg/dL Est GFR ( Amer) 54 L (> 60) Est GFR (Non-Af Amer) 45 L (> 60) BUN/Creatinine Ratio 35 H (6-26) Glucose 161 H (70-105) mg/dL Calculated Osmolality 305 H (280-300) Lactic Acid (0.5-2.2) mmol/L Calcium 7.7 L (8.6-10.3) mg/dL Total Bilirubin 0.9 (0.3-1.0) mg/dL Direct Bilirubin 0.3 H (0.0-0.2) mg/dL Indirect Bilirubin 0.6 (0.0-1.2) mg/dL AST 109 H (13-39) Units/L ALT 78 H (7-52) Units/L Alkaline Phosphatase 200 H (34-104) Units/L Troponin I 0.05 H* (< 0.04) ng/mL Serum Total Protein 5.7 L (6.4-8.9) g/dL Albumin 2.5 L (3.5-5.7) g/dL Globulin 3.2 (2.4-3.5) g/dL Albumin/Globulin Ratio 0.8 L (1.1-2.2) Lipase 3 L (11-82) Units/L Urine Color (Yellow) Urine Clarity (Clear) Urine pH (5.0-8.0) pH Units Ur Specific [place] (1.010-1.025) Urine Protein (Neg-Trace) mg/dL Urine Glucose (UA) (Normal) mg/dL Urine Ketones (Negative) mg/dL Urine Blood (Negative) Urine Nitrite (Negative) Urine Bilirubin (Negative) Urine Urobilinogen (Normal) mg/dL Ur Leukocyte Esterase (Negative) Urine Microscopic RBC (0-3) per hpf Urine Microscopic WBC (0-3) per hpf Ur Squamous Epith Cells (None-Few) per lpf Urine Bacteria (None-Few) per hpf Hyaline Casts (None-Few) per lpf Urine Yeast (None Seen) per hpf Ur Culture Indicated? (NO) 04/01/18 04/01/18 Range/Units 22:39 23:27 WBC (4.3-11.1) K/mcL RBC (3.82-4.97) M/mcL Hgb (11.5-15.4) g/dL Hct (35.3-44.9) % MCV (83.0-100.0) fL MCH (28.0-33.3) pg MCHC (31.6-35.5) g/dL RDW (11.5-14.5) % Plt Count (140-400) K/mcL MPV (9.4-12.4) fL Immature Gran % (0-4) % Seg Neutrophils % % Lymphocytes % % Monocytes % % Eosinophils % % Basophils % % Neutrophils # (1.6-8.9) K/mcL Lymphocytes # (0.6-4.6) K/mcL Monocytes # (0.0-1.3) K/mcL Eosinophils # (0.0-0.6) K/mcL Basophils # (0.0-0.2) K/mcL PT (9.4-12.1) Seconds INR Sodium (136-145) mEq/L Potassium (3.5-5.1) mEq/L Chloride (98-107) mEq/L Carbon Dioxide (23-29) mEq/L BUN (8-23) mg/dL Creatinine (0.60-1.20) mg/dL Est GFR ( Amer) (> 60) Est GFR (Non-Af Amer) (> 60) BUN/Creatinine Ratio (6-26) Glucose (70-105) mg/dL Calculated Osmolality (280-300) Lactic Acid 3.8 H (0.5-2.2) mmol/L Calcium (8.6-10.3) mg/dL Total Bilirubin (0.3-1.0) mg/dL Direct Bilirubin (0.0-0.2) mg/dL Indirect Bilirubin (0.0-1.2) mg/dL AST (13-39) Units/L ALT (7-52) Units/L Alkaline Phosphatase (34-104) Units/L Troponin I (< 0.04) ng/mL Serum Total Protein (6.4-8.9) g/dL Albumin (3.5-5.7) g/dL Globulin (2.4-3.5) g/dL Albumin/Globulin Ratio (1.1-2.2) Lipase (11-82) Units/L Urine Color Red A (Yellow) Urine Clarity Turbid A (Clear) Urine pH 6.0 (5.0-8.0) pH Units Ur Specific [place] 1.007 L (1.010-1.025) Urine Protein 100 H (Neg-Trace) mg/dL Urine Glucose (UA) Normal (Normal) mg/dL Urine Ketones Trace H (Negative) mg/dL Urine Blood Large H (Negative) Urine Nitrite Negative (Negative) Urine Bilirubin Small H (Negative) Urine Urobilinogen Normal (Normal) mg/dL Ur Leukocyte Esterase Large H (Negative) Urine Microscopic RBC 0-3 (0-3) per hpf Urine Microscopic WBC TNTC H (0-3) per hpf Ur Squamous Epith Cells Many H (None-Few) per lpf Urine Bacteria Many H (None-Few) per hpf Hyaline Casts Few (None-Few) per lpf Urine Yeast Few H (None Seen) per hpf Ur Culture Indicated? NO. A (NO) - Radiology Data Radiology results reviewed: Yes I reviewed the patient's radiology results. Critical Care Time Critical Care Time: Yes Total Critical Care Time: 45 Attestation: Critical care time 45 minutes spent in medical management of sepsis. Attestation Statement - Attestation Attestation: I examined this patient and my medical decision-making was reviewed with the Resident Physician. I agree with the documented findings, disposition and treatment plan as described except to the extent set forth below. 87-year-old female sent from a local nursing facility for concerns for low blood pressure and confusion. Patient upon arrival was found to be in the 80s systo lic. We do have 2 large bore IVs placed. She was fluid responsive. Her blood pressure went up to 102 systolic. She was found to have a white blood cell count of 52,000. Concerns for sepsis. She does have evidence of urinary tract infection as well as diverticulitis on her CT scan. On the CT scan is also concerning for a pyelonephritis as well as some hydroureter on the right side with some stranding around that. This could be secondary to an ascending urine infection. Patient was initially given Rocephin. I have added on a more broad- spectrum antibiotic with Zosyn to cover her abdomen. Patient cannot really take a floor quinolone due to her age and her Coumadin use. We did obtain blood cultures. Her Snaon catheter is draining. Case discussed with the hospitalist.
--- NOTE | 2018-04-02 01:00 | Emergency Department Note ---
Disposition Clinical Impression: Pyelonephritis, Diverticulitis, Confusion Sepsis Qualifiers: Sepsis type: sepsis due to unspecified organism Qualified Code(s): A41.9 - Sepsis, unspecified organism Hydronephrosis Qualifiers: Hydronephrosis type: unspecified Qualified Code(s): N13.30 - Unspecified hydronephrosis Hypotension Qualifiers: Hypotension type: unspecified hypotension type Qualified Code(s): I95.9 - Hyp otension, unspecified Leukocytosis Qualifiers: Leukocytosis type: unspecified Qualified Code(s): D72.829 - Elevated white b lood cell count, unspecified Disposition: Admitted As Inpatient Condition: Serious Referrals: NONE,PCP [Primary Care Provider] - Forms: ED Satisfaction Letter, Work/School Release Time of Disposition: :04 General Adult HPI - General Chief complaint: ED General Medical Stated complaint: lOW BP Time Seen by Provider: 04/01/18 21:49 Source: patient, EMS Mode of arrival: EMS Limitations: altered mental status Nursing Notes Reviewed: Yes Vital Signs Reviewed: Yes - History of Present Illness HPI Narrative: 87-year-old female with significant past medical history of atrial fibrillation currently on Coumadin and has dementia who is a poor historian presenting from a residential facility for chief complaint of low blood pressure. Patient is unable to provide any history of present illness accept the fact that she had some generalized abdominal pain yesterday. According to EMS residential facility called for evaluation because patient systolic blood pressure was in the 80s. No other history of present illness given. Pain Scale: 0 - Related Data Home Medications Medication Instructions Recorded Confirmed Amiodarone [Cordarone] 200 mg PO DAILY 12/30/16 03/16/17 Levothyroxine Sodium 200 mcg PO DAILY 12/30/16 03/16/17 Warfarin [Coumadin] 2.5 mg PO WEFR 12/30/16 03/16/17 Warfarin [Coumadin] 5 mg PO SUMOTUTHSA 12/30/16 03/16/17 Ascorbic Acid [Vitamin C] 500 mg PO DAILY 02/27/17 03/16/17 Calcium Carbonate [Calcium] 500 mg PO DAILY 02/27/17 03/16/17 Furosemide [Lasix] 20 mg PO DAILY PRN 02/27/17 03/16/17 Mirtazapine 7.5 mg PO HS 02/27/17 03/16/17 Sennosides/Docusate Sodium 1 tab PO BID PRN 02/27/17 03/16/17 [Senna-Docusate Sodium Tablet] Sertraline [Zoloft] 50 mg PO DAILY 02/27/17 03/16/17 Previous Rx's Medication Instructions Recorded Polyethylene Glycol 3350 [MiraLAX] 17 gm PO DAILY PRN powd.pack 01/01/17 Cefepime HCl/Dextrose, Iso-Osm 1 gm IV BID #4 mls 03/05/17 [Cefepime 1 gm Injection] HYDROcodone/Acet 5/325 mg [[place] 1 tab PO Q4HR PRN #20 tablet 03/05/17 5-325 mg] Allergies Allergy/AdvReac Type Severity Reaction Status Date / Time meperidine [From Demerol] AdvReac Unresponsiv Verified 12/30/16 11:12 e Limitations: ROS unobtainable due to patients medical condition Past Medical History - Past Medical History Source: old records reviewed Medical history: Reports: atrial fibrillation, cancer, hypertension, thyroid disease Surgical history: Reports: cholecystectomy, knee replacement, orthopedic, other, other Psychiatric history: Reports: anxiety, depression - Social History Smoking Status: Never smoker Smokeless Tobacco Status: No Alcohol use: Reports: none Drug use: Reports: none Physical Exam - General Limitations: altered mental status General appearance: alert, in no apparent distress - Head Head exam: atraumatic, normocephalic, normal inspection - Eye Eye exam: Absent: scleral icterus - ENT ENT exam: mucous membranes dry - Chest Chest inspection: Present: symmetric chest wall rise - Respiratory Respiratory exam: Present: normal lung sounds bilaterally. Absent: respiratory distress, wheezes - Cardiovascular Cardiovascular exam: Present: regular rate - Abdominal Exam Abdominal exam: Present: soft, Non-Tender. Absent: distention, guarding, rebound - Neurological Exam Neurological exam: Present: alert - Psychiatric Psychiatric exam: Present: normal affect - Skin Skin exam: Present: warm Course Course Narrative: 87-year-old female presenting for low blood pressure. In the room she is alert and able to respond to questions appropriately. EMS provided her with a 500 mL fluid bolus. Systolic blood pressure 90 in the room when I evaluated the sanju ent. She states she did have some abdominal pain yesterday but that has now gone away. Physical exam is otherwise benign. At this time concern for sepsis as patient is a poor historian. We will obtain a septic workup including labs, urinalysis, chest x-ray and a CT of the abdomen and pelvis. Disposition most likely admission the pending results. Patient agrees with this plan. We will also provide her with a liter of fluids. - Reevaluation(s) Reevaluation #1: Patient's laboratory analysis significant for leukocytosis of 52.8. Urine shows infection. CT of abdomen and pelvis shows diverticulitis and pyelonephritis. At this time we will treat the patient with Rocephin and Zosyn. After 1 L of fluids patient hemodynamically stable with systolic blood pressure in the low 100s. Lactic acid also initially elevated. At this time will plan to admit the patient for sepsis due to nephritis and diverticulitis. Patient remains alert. I spoke with the hospitalist concrete block mason Dr. Marshall who agrees to accept the patient at this time. Vital Signs Temperature 98.7 F 04/01/18 21:50 Pulse Rate 56 04/01/18 21:50 Respiratory Rate 22 04/01/18 21:50 Blood Pressure 91/44 04/01/18 21:50 O2 Sat by Pulse Oximetry 94 04/01/18 21:50 Temperature 98.7 F 04/01/18 21:50 Pulse Rate 55 04/02/18 00:53 Respiratory Rate 17 04/02/18 00:53 Blood Pressure 83/61 04/02/18 00:53 O2 Sat by Pulse Oximetry 95 04/02/18 00:53 Oxygen Delivery Oxygen Delivery Nasal Cannula Medical Decision Making - Lab Data Result diagrams: 04/01/18 22:39 04/01/18 22:39 Lab Results 04/01/18 04/01/18 04/01/18 Range/Units 22:38 22:39 22:39 WBC 52.8 H* (4.3-11.1) K/mcL RBC 3.87 (3.82-4.97) M/mcL Hgb 12.4 (11.5-15.4) g/dL Hct 37.3 (35.3-44.9) % MCV 96.4 (83.0-100.0) fL MCH 32.0 (28.0-33.3) pg MCHC 33.2 (31.6-35.5) g/dL RDW 15.9 H (11.5-14.5) % Plt Count 217 (140-400) K/mcL MPV 11.7 (9.4-12.4) fL Immature Gran % 3.0 (0-4) % Seg Neutrophils % 90.0 % Lymphocytes % 1.8 % Monocytes % 4.9 % Eosinophils % 0.0 % Basophils % 0.3 % Neutrophils # 47.5 H (1.6-8.9) K/mcL Lymphocytes # 1.0 (0.6-4.6) K/mcL Monocytes # 2.6 H (0.0-1.3) K/mcL Eosinophils # 0.0 (0.0-0.6) K/mcL Basophils # 0.2 (0.0-0.2) K/mcL PT 28.5 H (9.4-12.1) Seconds INR 2.5 Sodium 141 (136-145) mEq/L Potassium 4.4 (3.5-5.1) mEq/L Chloride 109 H (98-107) mEq/L Carbon Dioxide 21 L (23-29) mEq/L BUN 40 H (8-23) mg/dL Creatinine 1.14 (0.60-1.20) mg/dL Est GFR ( Amer) 54 L (> 60) Est GFR (Non-Af Amer) 45 L (> 60) BUN/Creatinine Ratio 35 H (6-26) Glucose 161 H (70-105) mg/dL Calculated Osmolality 305 H (280-300) Lactic Acid (0.5-2.2) mmol/L Calcium 7.7 L (8.6-10.3) mg/dL Total Bilirubin 0.9 (0.3-1.0) mg/dL Direct Bilirubin 0.3 H (0.0-0.2) mg/dL Indirect Bilirubin 0.6 (0.0-1.2) mg/dL AST 109 H (13-39) Units/L ALT 78 H (7-52) Units/L Alkaline Phosphatase 200 H (34-104) Units/L Troponin I 0.05 H* (< 0.04) ng/mL Serum Total Protein 5.7 L (6.4-8.9) g/dL Albumin 2.5 L (3.5-5.7) g/dL Globulin 3.2 (2.4-3.5) g/dL Albumin/Globulin Ratio 0.8 L (1.1-2.2) Lipase 3 L (11-82) Units/L Urine Color (Yellow) Urine Clarity (Clear) Urine pH (5.0-8.0) pH Units Ur Specific [place] (1.010-1.025) Urine Protein (Neg-Trace) mg/dL Urine Glucose (UA) (Normal) mg/dL Urine Ketones (Negative) mg/dL Urine Blood (Negative) Urine Nitrite (Negative) Urine Bilirubin (Negative) Urine Urobilinogen (Normal) mg/dL Ur Leukocyte Esterase (Negative) Urine Microscopic RBC (0-3) per hpf Urine Microscopic WBC (0-3) per hpf Ur Squamous Epith Cells (None-Few) per lpf Urine Bacteria (None-Few) per hpf Hyaline Casts (None-Few) per lpf Urine Yeast (None Seen) per hpf Ur Culture Indicated? (NO) 04/01/18 04/01/18 Range/Units 22:39 23:27 WBC (4.3-11.1) K/mcL RBC (3.82-4.97) M/mcL Hgb (11.5-15.4) g/dL Hct (35.3-44.9) % MCV (83.0-100.0) fL MCH (28.0-33.3) pg MCHC (31.6-35.5) g/dL RDW (11.5-14.5) % Plt Count (140-400) K/mcL MPV (9.4-12.4) fL Immature Gran % (0-4) % Seg Neutrophils % % Lymphocytes % % Monocytes % % Eosinophils % % Basophils % % Neutrophils # (1.6-8.9) K/mcL Lymphocytes # (0.6-4.6) K/mcL Monocytes # (0.0-1.3) K/mcL Eosinophils # (0.0-0.6) K/mcL Basophils # (0.0-0.2) K/mcL PT (9.4-12.1) Seconds INR Sodium (136-145) mEq/L Potassium (3.5-5.1) mEq/L Chloride (98-107) mEq/L Carbon Dioxide (23-29) mEq/L BUN (8-23) mg/dL Creatinine (0.60-1.20) mg/dL Est GFR ( Amer) (> 60) Est GFR (Non-Af Amer) (> 60) BUN/Creatinine Ratio (6-26) Glucose (70-105) mg/dL Calculated Osmolality (280-300) Lactic Acid 3.8 H (0.5-2.2) mmol/L Calcium (8.6-10.3) mg/dL Total Bilirubin (0.3-1.0) mg/dL Direct Bilirubin (0.0-0.2) mg/dL Indirect Bilirubin (0.0-1.2) mg/dL AST (13-39) Units/L ALT (7-52) Units/L Alkaline Phosphatase (34-104) Units/L Troponin I (< 0.04) ng/mL Serum Total Protein (6.4-8.9) g/dL Albumin (3.5-5.7) g/dL Globulin (2.4-3.5) g/dL Albumin/Globulin Ratio (1.1-2.2) Lipase (11-82) Units/L Urine Color Red A (Yellow) Urine Clarity Turbid A (Clear) Urine pH 6.0 (5.0-8.0) pH Units Ur Specific [place] 1.007 L (1.010-1.025) Urine Protein 100 H (Neg-Trace) mg/dL Urine Glucose (UA) Normal (Normal) mg/dL Urine Ketones Trace H (Negative) mg/dL Urine Blood Large H (Negative) Urine Nitrite Negative (Negative) Urine Bilirubin Small H (Negative) Urine Urobilinogen Normal (Normal) mg/dL Ur Leukocyte Esterase Large H (Negative) Urine Microscopic RBC 0-3 (0-3) per hpf Urine Microscopic WBC TNTC H (0-3) per hpf Ur Squamous Epith Cells Many H (None-Few) per lpf Urine Bacteria Many H (None-Few) per hpf Hyaline Casts Few (None-Few) per lpf Urine Yeast Few H (None Seen) per hpf Ur Culture Indicated? NO. A (NO) - EKG Data EKG #1 EKG attestation: Yes I reviewed and interpreted this EKG. EKG results narrative: Sinus rhythm. Incomplete left bundle branch block. 56 beats for minute. NE interval 51, QRS 114, QTC 494. No sign of acute ST segment elevation or ische jorgito.
--- NOTE | 2018-04-02 02:39 | Internal Med History&Physical ---
<Rangel Moeller - Last Filed: 04/02/18 06:16> Date of Encounter: 04/02/18 Time of Encounter: 02:45 Internal Medicine - H&P: HPI Chief complaint: Sepsis History of present illness: Ms. El is a 87 year old female past medical history of atrial fibrillation (on coumadin) , dementia, sacral decubitus ulcer (stage III/IV) , anxiety, depression presented to the ED from [facility] facility because of low blood pressure. Her systolic blood pressure was 90 when the patient was seen by the ER physician. Patient does not have a very good insight into her current illness, and all she told me was she's been having generalized fatigue and weakness for the past few days, and has not been drinking a lot of water lately. Patient has an indwelling ingram and is non-ambulatory at baseline. She denies any history of falls or trauma, recent sicknesses or travels. She endorses no change in her recent medications. Initial workup in the ER showed patient's white blood count was 52.8, neutrophils : 47.5, lactic acid of 3.8. Her INR was 2.5 given the fact that she takes Coumadin for A. fib. Patient's UA was positive for large amount of leukocyte esterase and many bacteria with few urine yeast. She underwent CT of her abdomen which showed moderate right hydroureteronephrosis with surrounding periurethral and perinephric inflammatory stranding indicative of UTI. She had no evidence of any obstructing stone. CT also showed some short segment of u ncomplicated diverticulitis in the distal sigmoid colon. She was given a liter of fluids in the ED, which bumped her blood pressure to systolics 100s. In the ED, she was given Zosyn and Rocephin because of her UTI. Owing to her comorbidities, lactic acidosis and hypotensive state in conjunction with concerns for urosepsis patient was admitted to the ICU for further management. Past Med Surg Social Fam HX - Past Medical History Medical history: atrial fibrillation, cancer, hypertension, thyroid disease Additional medical history: bile duct cancer Psychiatric history: anxiety, depression - Past Surgical History Surgical History: cholecystectomy, knee replacement, orthopedic, other, other Additional surgical history: hip sx - Social History Smoking Status: Never smoker Smokeless Tobacco Status: No Alcohol use: none Drug use: none - Family History Father Family Member Ethnicity: Non- Living Status: Hx Family Cancer: Yes (Stomach) Mother Family Member Ethnicity: Non- Living Status: Hx Family Cardiac Disorders: Yes (Stroke) Hx Family Endocrine Disorder: Yes (DM) Brother Family Member Ethnicity: Non- Living Status: Hx Family Cancer: Yes (Lung) Sister Family Member Ethnicity: Non- Living Status: Still Living Hx Family Cardiac Disorders: No Hx Family Respiratory Disorders: No Hx Family Cancer: Yes Hx Family GI Disorders: No Hx Family Endocrine Disorder: No Hx Family Neuromuscular Disorders: No Hx Family Neurologic Disorders: No Hx Family HEENT Disorders: No Hx Family Autoimmune Disorders: No Internal Medicine - H&P: Meds Amiodarone [Cordarone] 200 mg PO DAILY 12/30/16 [History] Levothyroxine Sodium 200 mcg PO DAILY 12/30/16 [History] Warfarin [Coumadin] 2.5 mg PO WEFR 12/30/16 [History] Warfarin [Coumadin] 5 mg PO SUMOTUTHSA 12/30/16 [History] Polyethylene Glycol 3350 [MiraLAX] 17 gm PO DAILY PRN powd.pack 01/01/17 [Rx] Ascorbic Acid [Vitamin C] 500 mg PO DAILY 02/27/17 [History] Calcium Carbonate [Calcium] 500 mg PO DAILY 02/27/17 [History] Furosemide [Lasix] 20 mg PO DAILY PRN 02/27/17 [History] Mirtazapine 7.5 mg PO HS 02/27/17 [History] Sennosides/Docusate Sodium [Senna-Docusate Sodium Tablet] 1 tab PO BID PRN 02/27/17 [History] Sertraline [Zoloft] 50 mg PO DAILY 02/27/17 [History] Cefepime HCl/Dextrose, Iso-Osm [Cefepime 1 gm Injection] 1 gm IV BID #4 mls 03/05/17 [Rx] HYDROcodone/Acet 5/325 mg [[place] 5-325 mg] 1 tab PO Q4HR PRN #20 tablet 03/05/17 [Rx] Allergy/AdvReac Type Severity Reaction Status Date / Time meperidine [From Demerol] AdvReac Unresponsiv Verified 12/30/16 11:12 e All Systems PM: A 10-system review of systems was performed and is negative for pertinent findings except as documented above in the HPI. - Constitutional Constitutional: no fever(s), no falls - Cardiovascular Cardiovascular ROS IM: no chest pain - Respiratory Respiratory: no cough - Gastrointestinal Gastrointestinal: no abdominal pain - Musculoskeletal Musculoskeletal ROS IM: no muscle weakness - Integumentary Integumentary IM: no rash - Neurological Neurological ROS: no abnormal speech - Psychiatric Psychiatric: no confusion - Endocrine Endocrine IM: no fatigue - Constitutional Vitals: Temp Pulse Resp BP Pulse Ox 98.1 F 57 15 91/43 95 04/02/18 02:00 04/02/18 02:00 04/02/18 02:00 04/02/18 02:00 04/02/18 02:00 Exam: Gen.: Vitals noted. No acute distress. Alert, awake and oriented * 3 [address], place, and time, resting comfortably in bed. Pleasant. HEENT: oropharynx clear, Normocephalic, atraumatic, MMM Neck: supple, no JVD, no lymphadenopathy, no carotid bruit. Cardiac: RRR, no murmur, +S1/S2, No BLE edema, PMI non-displaced Pulmonary: CTA bilaterally, no wheezes, rales or rhonchi, equal chest expansion, unlabored breathing Abdomen: soft, nontender, BS noted, no guarding, non-distended. No organomegaly, no pulsatile masses, Skin: warm and dry, no visible lesions. Feels warm, clammy, no rashes, no lesions, no erythema MSK: ROM not assessed. no joint swelling noted, gait not assessed while in bed. Non tender calf or clubbing, no cyanosis/clubbing/ or edema Neuro: A&O, moves all extremities, no focal deficits, sensation intact Psych: Appropriate mood and behavior, normal speech, Internal Med - H&P Results - Labs CBC & Chem 7: 04/02/18 04:17 04/02/18 04:17 Labs: Short CBC 04/01/18 Range/Units 22:39 WBC 52.8 H* (4.3-11.1) K/mcL Hgb 12.4 (11.5-15.4) g/dL Hct 37.3 (35.3-44.9) % Plt Count 217 (140-400) K/mcL Neutrophils # 47.5 H (1.6-8.9) K/mcL BMP 04/01/18 22:39 Sodium 141 Potassium 4.4 Chloride 109 H Carbon Dioxide 21 L BUN 40 H Creatinine 1.14 Glucose 161 H Calcium 7.7 L Cardiac Enzymes 04/01/18 Range/Units 22:39 Troponin I 0.05 H* (< 0.04) ng/mL Liver Function 04/01/18 Range/Units 22:39 Total Bilirubin 0.9 (0.3-1.0) mg/dL Direct Bilirubin 0.3 H (0.0-0.2) mg/dL AST 109 H (13-39) Units/L ALT 78 H (7-52) Units/L Alkaline Phosphatase 200 H (34-104) Units/L Albumin 2.5 L (3.5-5.7) g/dL Urine 04/01/18 Range/Units 23:27 Urine Color Red A (Yellow) Urine Clarity Turbid A (Clear) Urine pH 6.0 (5.0-8.0) pH Units Ur Specific [place] 1.007 L (1.010-1.025) Urine Protein 100 H (Neg-Trace) mg/dL Urine Glucose (UA) Normal (Normal) mg/dL - Impressions ITS Impressions Chest X-Ray 04/01/18 22:02 IMPRESSION: The heart is borderline enlarged. The lungs are grossly clear. D/ / Steven Laureano MD / Steven Laureano MD Interpreting Provider: Steven Laureano MD Abdomen/Pelvis CT 04/01/18 23:26 IMPRESSION: Sigmoid diverticulosis with short segment of uncomplicated diverticulitis involving the distal sigmoid colon. Asymmetric wall thickening versus adherent stool along the distal rectum and anus. Correlate with physical exam for underlying mass. New moderate right hydroureteronephrosis with surrounding periureteral and perinephric inflammatory stranding which could indicate concomitant urinary tract infection. Focus of gas within the proximal ureter may relate to Ingram catheter placement as there is also nondependent gas within the urinary bladder. This could also relate to underlying cystitis/ascending urinary tract infection. No obstructing stone. Unchanged bile duct dilatation. Uncomplicated appearing right inguinal hernia containing nonobstructed small bowel. 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 Mild interval increase in T10 compression deformity. Unchanged T2 and T4 compression deformities. D/ / Lisandro Avitia / Lisandro Avitia Interpreting Provider: Lisandro Avitia - Assessment and plan (1) Sepsis Current Visit: Yes Status: Acute Assessment and plan: - Likely multifactorial. Patient's urine was positive for large leukocyte esterase with many bacteria in urine. It could also be secondary to her sacral decubitus stage III ulcer although the ulcer at this point does not look to be infected or weeping. Patient's CT abdomen also showed concerns for uncomplicated diverticulitis. - Patient's lactic acid was elevated at 3.8, was hypotensive in the ED with systolics of 90s, was given 1 L IVF and her blood pressure went to systolic 1 00s. she was leukocytotic at 52.8, Neutrophils : 47.5. She was not febrile - She received 1 L IVF in the ED currently receiving another liter of IVF in the ICU. -Blood and urine cultures are pending. Currently on Zosyn and Flagyl to cover her source of infection UTI/Diverticulitis. We will de-escalate antibiotics pending culture sensitivities. Qualifiers: Sepsis type: sepsis due to unspecified organism Qualified Code(s): A41.9 - Sepsis, unspecified organism (2) Hypotension Current Visit: Yes Status: Acute Assessment and plan: -Patient presented to the ED because of low blood pressure in the 90s likely in setting of sepsis -Blood pressure responded to fluid boluses, she received 1L IVF in the ED currently on her 2L IVF - currently on maintenance fluid at 150 mls/hr. -Will consider the idea of the central venous catheter placement if the patient's blood pressure does not get back to her baseline Qualifiers: Hypotension type: unspecified hypotension type Qualified Code(s): I95.9 - Hypotension, unspecified (3) UTI (urinary tract infection) Current Visit: No Status: Acute Assessment and plan: - Patient has a history of recurrent UTI. She has had multiple admissions in the past for UTI. She has an indwelling ingram which could be the nidus for infection -Workup in the ED was positive for leukocytosis at 52.8, elevated lactic acid at 3.8, she was afebrile. -Patient's abdominal CT showed a right hydroureteronephrosis with surrounding perirectal and perinephric inflammatory stranding consistent with concomitant UTI, with no evidence of any obstructive stone -Patient was given Zosyn in the ED. Continues to be on Zosyn right now for UTI. Urine cultures pending. - Consult to Urology owing to the CT findings of right hydroureteronephrosis with surrounding periureteral and perinephric inflammatory stranding. Qualifiers: Urinary tract infection type: catheter-associated UTI Indwelling urinary catheter type: unspecified Encounter type: subsequent encounter Qualified Code(s): T83.511D - Infection and inflammatory reaction due to indwelling urethral catheter, subsequent encounter; N39.0 - Urinary tract infection, site not specified (4) Atrial fibrillation Current Visit: No Status: Chronic Assessment and plan: -Has a history of atrial fibrillation. -She takes Cordarone 200 mg by mouth daily and Coumadin. -Currently the ICU she is in normal sinus rhythm. Holding off on the Coumadin. . Will consider the possibility of putting her on amiodarone drip if she goes back into A. fib. Qualifiers: Atrial fibrillation type: paroxysmal Qualified Code(s): I48.0 - Paroxysmal atrial fibrillation (5) DVT prophylaxis Current Visit: No Status: Acute Assessment and plan: Heparin sub cutaneous (6) Sacral decubitus ulcer Current Visit: Yes Status: Acute Assessment and plan: Patient came to the ED with sacral decubitus stage III ulcer. On browsing through her past records it seems that she has had the ulcer for a while and she has received wound care in the hospital in the past. -His exam the ulcer does not appear to be infected, no serosangunous discharge -Wound care has been consulted. Qualifiers: Qualified Code(s): L89.153 - Pressure ulcer of sacral region, stage 3 - Time Spent With Patient Total time spent is greater than 50% in coordination of care (as documented) at patient's floor/unit and/or counseling patient: <Jaciel Bales - Last Filed: 04/02/18 06:28> Date of Encounter: 04/02/18 Time of Encounter: 05:35 - Constitutional Constitutional: chills, no fever(s) - EENT Eyes: no blurry vision, no change in vision Ears: no ear pain, no tinnitus Nose, mouth and throat: no sore throat - Cardiovascular Cardiovascular ROS IM: no chest pain, no dyspnea - Respiratory Respiratory: no cough, no hemoptysis, no chest congestion - Genitourinary Genitourinary: dysuria, flank pain, no hematuria - Musculoskeletal Musculoskeletal ROS IM: arthralgias, back pain - Neurological Neurological ROS: confusion, no dizziness - Psychiatric Psychiatric: no anxiety, no depression - Endocrine Endocrine IM: cold intolerance, no heat intolerance - Allergic/Immunologic Allergic/Immunologic: GI upset with certain foods - Constitutional Vitals: Temp Pulse Resp BP Pulse Ox 98.1 F 65 16 147/86 97 04/02/18 02:00 04/02/18 04:00 04/02/18 04:00 04/02/18 04:00 04/02/18 04:00 General appearance: Present: cooperative, A&O X 2, pleasant, answers questions a ppropriately Exam: minimally confused now - Head Head exam: Present: normal inspection - Eye Eye exam: Present: EOMI, PERRL. Absent: scleral icterus - ENT ENT exam: Present: mucous membranes dry, normal oropharynx - Neck Neck exam general surgery: Present: supple, trachea midline. Absent: tenderness, nuchal rigidity, thyromegaly - Respiratory Respiratory exam: Present: CTAB. Absent: chest wall tenderness, rales, rhonchi, wheezes - Cardiovascular Cardiovascular exam: Present: irregular rhythm, +S1, +S2. Absent: diastolic murmur, systolic murmur - GI/Abdominal GI/Abdominal exam: Present: hypoactive bowel sounds, soft. Absent: hepatomegaly, mass, splenomegaly, tenderness - Extremities Exam Extremities exam: Present: warm, radial pulses palpable and symmetrical. Absent: calf tenderness, joint swelling - Back Exam Back exam: Present: CVA tenderness (R). Absent: CVA tenderness (L) - Neurological Exam Neurological exam: Present: alert, no focal deficits. Absent: oriented X3 (x 2) - Psychiatric Psychiatric exam: Present: flat affect - Skin Skin exam: Present: dry, intact, warm Internal Med - H&P Results - Labs CBC & Chem 7: 04/02/18 04:17 04/02/18 04:17 Labs: Short CBC 04/01/18 04/02/18 Range/Units 22:39 04:17 WBC 52.8 H* 46.1 H* (4.3-11.1) K/mcL Hgb 12.4 12.0 (11.5-15.4) g/dL Hct 37.3 36.6 (35.3-44.9) % Plt Count 217 221 (140-400) K/mcL Neutrophils # 47.5 H (1.6-8.9) K/mcL BMP 04/01/18 04/02/18 22:39 04:17 Sodium 141 141 Potassium 4.4 4.3 Chloride 109 H 111 H Carbon Dioxide 21 L 24 BUN 40 H 40 H Creatinine 1.14 1.02 Glucose 161 H 109 H Calcium 7.7 L 7.5 L Cardiac Enzymes 04/01/18 Range/Units 22:39 Troponin I 0.05 H* (< 0.04) ng/mL Liver Function 04/01/18 Range/Units 22:39 Total Bilirubin 0.9 (0.3-1.0) mg/dL Direct Bilirubin 0.3 H (0.0-0.2) mg/dL AST 109 H (13-39) Units/L ALT 78 H (7-52) Units/L Alkaline Phosphatase 200 H (34-104) Units/L Albumin 2.5 L (3.5-5.7) g/dL Urine 04/01/18 Range/Units 23:27 Urine Color Red A (Yellow) Urine Clarity Turbid A (Clear) Urine pH 6.0 (5.0-8.0) pH Units Ur Specific [place] 1.007 L (1.010-1.025) Urine Protein 100 H (Neg-Trace) mg/dL Urine Glucose (UA) Normal (Normal) mg/dL - Impressions ITS Impressions Chest X-Ray 04/01/18 22:02 IMPRESSION: The heart is borderline enlarged. The lungs are grossly clear. D/ / Steven Laureano MD / Steven Laureano MD Interpreting Provider: Steven Laureano MD Abdomen/Pelvis CT 04/01/18 23:26 IMPRESSION: Sigmoid diverticulosis with short segment of uncomplicated diverticulitis involving the distal sigmoid colon. Asymmetric wall thickening versus adherent stool along the distal rectum and anus. Correlate with physical exam for underlying mass. New moderate right hydroureteronephrosis with surrounding periureteral and perinephric inflammatory stranding which could indicate concomitant urinary tract infection. Focus of gas within the proximal ureter may relate to Ingram catheter placement as there is also nondependent gas within the urinary bladder. This could also relate to underlying cystitis/ascending urinary tract infection. No obstructing stone. Unchanged bile duct dilatation. Uncomplicated appearing right inguinal hernia containing nonobstructed small bowel. 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 Mild interval increase in T10 compression deformity. Unchanged T2 and T4 compression deformities. D/ / Lisandro Avitia / Lisandro Avitia Interpreting Provider: Lisandro Avitia - Assessment and plan (1) Atrial fibrillation Current Visit: No Status: Chronic Qualifiers: Atrial fibrillation type: paroxysmal Qualified Code(s): I48.0 - Paroxysmal atrial fibrillation (2) DVT prophylaxis Current Visit: No Status: Acute (3) UTI (urinary tract infection) Current Visit: No Status: Acute Qualifiers: Urinary tract infection type: catheter-associated UTI Indwelling urinary catheter type: unspecified Encounter type: subsequent encounter Qualified Code(s): T83.511D - Infection and inflammatory reaction due to indwelling urethral catheter, subsequent encounter; N39.0 - Urinary tract infection, site not specified (4) Sepsis Current Visit: Yes Status: Acute Qualifiers: Sepsis type: sepsis due to unspecified organism Qualified Code(s): A41.9 - Sepsis, unspecified organism (5) Hypotension Current Visit: Yes Status: Acute Qualifiers: Hypotension type: unspecified hypotension type Qualified Code(s): I95.9 - Hypotension, unspecified (6) Sacral decubitus ulcer Current Visit: Yes Status: Acute Qualifiers: Qualified Code(s): L89.153 - Pressure ulcer of sacral region, stage 3 - Time Spent With Patient Total time spent is greater than 50% in coordination of care (as documented) at patient's floor/unit and/or counseling patient: - Attending Attestation I discussed the patient [place], past medical history, review of systems, lab data, imaging data, and exam findings with Dr. Moeller. I then saw and examined patient independently in the ICU. She is minimally confused now whereas she was moderately confused earlier. She appears to be clinically dehydrated. She is in no distress at this time. Blood pressure is acceptable and much improved than earlier. She presented in septic shock and was fluid resuscitated. She is on appropriate antibiotics to cover GI and susie. I suspect her source of sepsis is likely rather than GI. Nonetheless, she does have CT scan findings concerning for diverticulitis. Her abdomen is soft and nontender, however. She does complain of flank pain and dysuria. She has significant hydronephrosis on imaging. However, there is no documentation of urolithiasis. I wonder if she actually passed a kidney stone. We will consult urology to assist in further evaluation and intervention if necessary. We will also ask palliative care to see patient in consultation for concerns of hospice enrollment with full CODE STATUS. I questioned patient about her CODE STATUS, and she does not seem to really understand. We will await further guidance from palliative care team for goals of care counseling and discussion with family. Meanwhile, she will remain full code unless dictated otherwise. She has responded nicely to IV fluids and does not need pressors at this moment. Other than my comments above and noted exam findings, I agree with Dr. Moeller's assessment and plan.
[2018-04-02] MEDS ORDERED: 0.9 % Sodium Chloride 1,000 ML IVC ONE (03:24)
[2018-04-02 04:38] LABS: Basophils % 0.3 %; Mean Corpuscular Volume 96.6 fL (83.0-100.0)
[2018-04-02 04:39] LABS: Basophils # 0.1 K/mcL (0.0-0.2); Hematocrit 36.6 % (35.3-44.9); Immature Granulocytes % 1.6 % (0-4); Lymphocytes # 1.2 K/mcL (0.6-4.6); Lymphocytes % 2.6 %; Mean Corpuscular HGB Conc 32.8 g/dL (31.6-35.5); Mean Corpuscular Hemoglobin 31.7 pg (28.0-33.3); Mean Platelet Volume 11.6 fL (9.4-12.4); Monocytes % 6.4 %; Neutrophils # 41.1 K/mcL (1.6-8.9); Platelet Count 221 K/mcL (140-400); Red Blood Count 3.79 M/mcL (3.82-4.97); Red Cell Distribution Width 16.1 % (11.5-14.5); Segmented Neutrophils % 89.1 %
[2018-04-02 04:54] LABS: BUN/Creatinine Ratio 39 (6-26); Blood Urea Nitrogen 40 mg/dL (8-23); Calcium 7.5 mg/dL (8.6-10.3); Carbon Dioxide 24 mEq/L (23-29); Chloride 111 mEq/L (98-107); Glucose 109 mg/dL (70-105); Osmolality,Calculated 302 (280-300); Potassium 4.3 mEq/L (3.5-5.1); Sodium 141 mEq/L (136-145); eGFR For Non-African Americans 51 (> 60)
[2018-04-02] MEDS ORDERED: 0.9 % Sodium Chloride 1,000 ML IVC SCH (05:15)
[2018-04-02] MEDS ORDERED: Ondansetron 4 MG/2 ML VIAL IVP PRN (06:13)
[2018-04-02 06:31] LABS: Platelet Estimate Normal (Normal)
[2018-04-02] MEDS: 0.9 % Sodium Chloride 1,000 ML IVC SCH (06:58)
--- NOTE | 2018-04-02 07:41 | Urology - Consult Note ---
Date of Encounter: 04/02/18 Time of Encounter: 07:29 - Assessment and Plan (1) Hydronephrosis Current Visit: Yes Status: Acute Assessment and plan: I personally reviewed the CT scan and agree there is moderate hydronephrosis/hydroureter with some air in the collecting system with stranding. Although there are multiple potential sources for her illness, I do suspect the urinary issues are the main etiology for her presentation. I did not see a ureteral calculi or other obvious cause for the hydronephrosis but consider ureteral stricture. Regardless, she technically requires a ureteral stent placement to decompress the hydronephrosis and help relieve her potential urosepsis. At the same time, the patient's advanced age, comorbidities, debilitated state, and dementia may indicate that a palliative approach may be more appropriate which would include IV fluids and antibiotics only as she does not appear to be in pain. She is stable at this time and I do not feel we need to chan to place a ureteral stent this morning. It appears that her daughter will be visiting the patient today and at that time we will discuss treatment options. Hopefully this will help guide the most appropriate intervention. Could consider stent placement at the bedside however the nursing staff reports that she did not tolerate the cath change well. Qualifiers: Hydronephrosis type: unspecified Qualified Code(s): N13.30 - Unspecified hydronephrosis Urology CN:HPI Consult date: 04/02/18 Reason for consult Urology: Hydronephrosis History of present illness: fdc patient. admitted with acute illness. WBC 50,000. dementia and confusion. low BP overnight but improved with IVF and ABX. CT findings New moderate right hydroureteronephrosis with surrounding periureteral and perinephric inflammatory stranding which could indicate concomitant urinary tract infection. Focus of gas within the proximal ureter may relate to Ingram catheter placement as there is also nondependent gas within the urinary bladder. This could also relate to underlying cystitis/ascending urinary tract infection. No obstructing stone. Past Med Surg Social Fam HX - Past Medical History Medical history: atrial fibrillation, cancer, hypertension, thyroid disease Additional medical history: bile duct cancer Psychiatric history: anxiety, depression - Past Surgical History Surgical History: cholecystectomy, knee replacement, orthopedic, other, other Additional surgical history: hip sx - Social History Smoking Status: Never smoker Smokeless Tobacco Status: No Alcohol use: none Drug use: none - Family History Father Family Member Ethnicity: Non- Living Status: Hx Family Cancer: Yes (Stomach) Mother Family Member Ethnicity: Non- Living Status: Hx Family Cardiac Disorders: Yes (Stroke) Hx Family Endocrine Disorder: Yes (DM) Brother Family Member Ethnicity: Non- Living Status: Hx Family Cancer: Yes (Lung) Sister Family Member Ethnicity: Non- Living Status: Still Living Hx Family Cardiac Disorders: No Hx Family Respiratory Disorders: No Hx Family Cancer: Yes Hx Family GI Disorders: No Hx Family Endocrine Disorder: No Hx Family Neuromuscular Disorders: No Hx Family Neurologic Disorders: No Hx Family HEENT Disorders: No Hx Family Autoimmune Disorders: No Medications and Allergies Amiodarone [Cordarone] 200 mg PO DAILY 12/30/16 [History] Levothyroxine Sodium 200 mcg PO DAILY 12/30/16 [History] Warfarin [Coumadin] 2.5 mg PO WEFR 12/30/16 [History] Warfarin [Coumadin] 5 mg PO SUMOTUTHSA 12/30/16 [History] Polyethylene Glycol 3350 [MiraLAX] 17 gm PO DAILY PRN powd.pack 01/01/17 [Rx] Ascorbic Acid [Vitamin C] 500 mg PO DAILY 02/27/17 [History] Calcium Carbonate [Calcium] 500 mg PO DAILY 02/27/17 [History] Furosemide [Lasix] 20 mg PO DAILY PRN 02/27/17 [History] Mirtazapine 7.5 mg PO HS 02/27/17 [History] Sennosides/Docusate Sodium [Senna-Docusate Sodium Tablet] 1 tab PO BID PRN 02/27/17 [History] Sertraline [Zoloft] 50 mg PO DAILY 02/27/17 [History] Cefepime HCl/Dextrose, Iso-Osm [Cefepime 1 gm Injection] 1 gm IV BID #4 mls 03/05/17 [Rx] HYDROcodone/Acet 5/325 mg [Rose 5-325 mg] 1 tab PO Q4HR PRN #20 tablet 03/05/17 [Rx] Allergy/AdvReac Type Severity Reaction Status Date / Time meperidine [From Demerol] AdvReac Unresponsiv Verified 12/30/16 11:12 e Review of Systems ROS unobtainable: due to mental status - Constitutional fatigue Exam Initial Vital Signs Temp Pulse Resp BP Pulse Ox 98.7 F 56 22 91/44 94 04/01/18 21:50 04/01/18 21:50 04/01/18 21:50 04/01/18 21:50 04/01/18 21:50 - General physical appearance Present: cachectic, chronically ill - Eyes Present: conjunctiva is clear - ENT Present: normal nares - Neck Present: no lymphadenopathy - Cardiovascular Cardiovascular exam IM: RRR - Abdomen Abdomen: Present: soft - Neurologic Present: confused - Additional Findings ingram in place. clear urine. Urology Results - Labs 04/02/18 04:17 04/02/18 04:17 Abnormal lab results WBC 46.1 K/mcL (4.3-11.1) H* 04/02/18 04:17 RBC 3.79 M/mcL (3.82-4.97) L 04/02/18 04:17 RDW 16.1 % (11.5-14.5) H 04/02/18 04:17 Neutrophils # 41.1 K/mcL (1.6-8.9) H 04/02/18 04:17 Monocytes # 3.0 K/mcL (0.0-1.3) H 04/02/18 04:17 PT 28.5 Seconds (9.4-12.1) H 04/01/18 22:38 Chloride 111 mEq/L (98-107) H 04/02/18 04:17 BUN 40 mg/dL (8-23) H 04/02/18 04:17 Est GFR (Non-Af Amer) 51 (> 60) L 04/02/18 04:17 BUN/Creatinine Ratio 39 (6-26) H 04/02/18 04:17 Glucose 109 mg/dL (70-105) H 04/02/18 04:17 Calculated Osmolality 302 (280-300) H 04/02/18 04:17 Calcium 7.5 mg/dL (8.6-10.3) L 04/02/18 04:17 Direct Bilirubin 0.3 mg/dL (0.0-0.2) H 04/01/18 22:39 AST 109 Units/L (13-39) H 04/01/18 22:39 ALT 78 Units/L (7-52) H 04/01/18 22:39 Alkaline Phosphatase 200 Units/L (34-104) H 04/01/18 22:39 Troponin I 0.05 ng/mL (< 0.04) H* 04/01/18 22:39 Serum Total Protein 5.7 g/dL (6.4-8.9) L 04/01/18 22:39 Albumin 2.5 g/dL (3.5-5.7) L 04/01/18 22:39 Albumin/Globulin Ratio 0.8 (1.1-2.2) L 04/01/18 22:39 Lipase 3 Units/L (11-82) L 04/01/18 22:39 Urine Color Red (Yellow) A 04/01/18 23:27 Urine Clarity Turbid (Clear) A 04/01/18 23:27 Ur Specific [place] 1.007 (1.010-1.025) L 04/01/18 23:27 Urine Protein 100 mg/dL (Neg-Trace) H 04/01/18 23:27 Urine Ketones Trace mg/dL (Negative) H 04/01/18 23:27 Urine Blood Large (Negative) H 04/01/18 23:27 Urine Bilirubin Small (Negative) H 04/01/18 23:27 Ur Leukocyte Esterase Large (Negative) H 04/01/18 23:27 Urine Microscopic WBC TNTC per hpf (0-3) H 04/01/18 23:27 Ur Squamous Epith Cells Many per lpf (None-Few) H 04/01/18 23:27 Urine Bacteria Many per hpf (None-Few) H 04/01/18 23:27 Urine Yeast Few per hpf (None Seen) H 04/01/18 23:27 Ur Culture Indicated? NO. (NO) A 04/01/18 23:27 Diabetes panel 04/01/18 04/02/18 Range/Units 22:39 04:17 Sodium 141 141 (136-145) mEq/L Potassium 4.4 4.3 (3.5-5.1) mEq/L Chloride 109 H 111 H (98-107) mEq/L Carbon Dioxide 21 L 24 (23-29) mEq/L BUN 40 H 40 H (8-23) mg/dL Creatinine 1.14 1.02 (0.60-1.20) mg/dL Glucose 161 H 109 H (70-105) mg/dL Calcium 7.7 L 7.5 L (8.6-10.3) mg/dL AST 109 H (13-39) Units/L ALT 78 H (7-52) Units/L Alkaline Phosphatase 200 H (34-104) Units/L Albumin 2.5 L (3.5-5.7) g/dL Calcium panel 04/01/18 04/02/18 Range/Units 22:39 04:17 Calcium 7.7 L 7.5 L (8.6-10.3) mg/dL Albumin 2.5 L (3.5-5.7) g/dL Pituitary panel 04/01/18 04/02/18 Range/Units 22:39 04:17 Sodium 141 141 (136-145) mEq/L Potassium 4.4 4.3 (3.5-5.1) mEq/L Chloride 109 H 111 H (98-107) mEq/L Carbon Dioxide 21 L 24 (23-29) mEq/L BUN 40 H 40 H (8-23) mg/dL Creatinine 1.14 1.02 (0.60-1.20) mg/dL Glucose 161 H 109 H (70-105) mg/dL Calcium 7.7 L 7.5 L (8.6-10.3) mg/dL Adrenal panel 04/01/18 04/02/18 Range/Units 22:39 04:17 Sodium 141 141 (136-145) mEq/L Potassium 4.4 4.3 (3.5-5.1) mEq/L Chloride 109 H 111 H (98-107) mEq/L Carbon Dioxide 21 L 24 (23-29) mEq/L BUN 40 H 40 H (8-23) mg/dL Creatinine 1.14 1.02 (0.60-1.20) mg/dL Glucose 161 H 109 H (70-105) mg/dL Calcium 7.7 L 7.5 L (8.6-10.3) mg/dL Total Bilirubin 0.9 (0.3-1.0) mg/dL AST 109 H (13-39) Units/L ALT 78 H (7-52) Units/L Alkaline Phosphatase 200 H (34-104) Units/L Albumin 2.5 L (3.5-5.7) g/dL All other labs normal. Consult Discharge Plan - Plan Referrals: NONE,PCP [Primary Care Provider] -
[2018-04-02] MEDS ORDERED: MetroNIDAZOLE 500 MG/100 ML 500 MG/100 ML BAG IVPB SCH (08:00)
[2018-04-02] MEDS: Piperacillin/Tazobactam 3.375 GM in 0.9 % Sodium Chloride Mini Bag 100 ML IVPB SCH ×3 (08:18→23:26)
--- NOTE | 2018-04-02 11:06 | Palliative - Consult Note ---
Date of Encounter: 04/02/18 Time of Encounter: 10:30 - Assessment and Plan (1) Goals of care, counseling/discussion Current Visit: Yes Status: Acute Assessment and plan: Called all numbers listed in chart for Evelyn Talley Primary MPOA, no voicemail and no answer. Called and left message for Andrade Talley to request return ph one call to discuss patient's goals of care, palliative care consult. Received return phone call from Mr. Talley whom reports he and his are in [place] currently, Can return this afternoon for meeting. Family meeting set for 3 pm today. [id number]- Met patient's daughter and son in law alongside Primary RN Phillip and Dr. Weaver to review patient and family's goals of care. Patient expressed to family she was not understanding all of the material and would need help making decision. Upon completion of thorough discussion regarding risks and benefits of stent placement. Patient's daughter and son in law after thorough review made decision to proceed with stent placement. Dr. Weaver calling to notify Urology with plan for placement this evening. CODE STATUS confirmed as FULL CODE. Per daughter's report family has been "hounded by everyone at the retirement and hospice" to change CODE STATUS. Shaneka intends to follow mother's wishes and keep patient a FULL CODE. Palliative care will continue to follow patient from a distance to ensure tolerance of procedure. Will follow up with family on Thursday. (2) Confusion Current Visit: Yes Status: Acute Assessment and plan: Multifactoral. Possibly at baseline. Patient has severe UTI and dementia. (3) Diverticulitis Current Visit: Yes Status: Acute (4) Hydronephrosis Current Visit: Yes Status: Acute Assessment and plan: Urology consulted; recommendations appreciated. Ureter stent placement to be performed. Qualifiers: Hydronephrosis type: unspecified Qualified Code(s): N13.30 - Unspecified hydronephrosis (5) Hypotension Current Visit: Yes Status: Acute Assessment and plan: BP 110/58. Managing per primary team. Patient responded to IVF on admission. Qualifiers: Hypotension type: unspecified hypotension type Qualified Code(s): I95.9 - Hypotension, unspecified (6) Sacral decubitus ulcer, stage IV Current Visit: No Status: Acute Assessment and plan: wound care has been consulted; recommendations appreciated. (7) Dementia Current Visit: No Status: Chronic Qualifiers: Dementia type: unspecified type Dementia behavioral disturbance: without behavioral disturbance Qualified Code(s): F03.90 - Unspecified dementia without behavioral disturbance Palliative-CN HPI - Data of Consult Patient: new to practice Consult date: 04/02/18 Requesting Physician: Jong Weaver, Primary Care Provider: PCP NONE - Consult Narrative Palliative Care/Comfort Measures: Palliative care Reason for consult: Goals of care History of present illness: Ms. El is a 87 year old female from [facility] with [facility]. PMH: Afib, Bile Duct Cancer, HTN, Thyroid disease, Anxiety, Depression, and Dementia. Patient arrived to [facility] as a transfer due to concern for hypotension. Patient found to have a WBC count of 52,8000, Neutrophils 47.5% and positive for UTI. CT without contrast showed uncomplicated diverticulitis, new moderate right hydroureteronephrosis, and stage 4 sacral decubitus. Patient admitted and managed for UTI, Hydronephrosis, Hypotension, Urosepsis, and Afib. Broad spectrum antibiotics initiated. Urology consulted for management of [place] ureteronephrosis; recommend either ureter stent placement versus IV fluids and antibiotics. Palliative care consulted for goals of care discussion. Patient resting in bed with eyes open upon arrival for assessment. Patient is alert; however, disoriented times 3. Patient able to state first and middle name, confused on last night. Patient reports Shaneka is her daughter who lives and works out of town, is MPOA. Patient reports generalized moderate pain present, no doses of Morphine administered since admission. Patient denies anxiety, dyspnea, nausea and vomiting. Patient unsure what brought her to the hospital; reports she may have fallen or something. Upon reviewing course of stay from prior to hospital to current time, patient unable to follow conversation. CC: Jong Weaver, - Time Spent with Patient Time: Total time spent is greater than 50% in coordination of care (as documented) at patient's floor/unit and/or counseling patient: 10 minutes chart review 10 minutes assessment and meeting with patient regarding goals of care 5 minutes telephone conference with patient's son in law (Andrade Talley- Alternate MPOA) with arrangement of 3 pm meeting. 30 minute meeting with patient's daughter and son in law discussing goals of care. Time with patient: 45 minutes Past Med Surg Social Fam HX - Past Medical History Medical history: atrial fibrillation, cancer, hypertension, thyroid disease Additional medical history: bile duct cancer Psychiatric history: anxiety, depression - Past Surgical History Surgical History: cholecystectomy, knee replacement, orthopedic, other, other Additional surgical history: hip sx - Social History Smoking Status: Never smoker Smokeless Tobacco Status: No Alcohol use: none Drug use: none - Family History Father Family Member Ethnicity: Non- Living Status: Hx Family Cancer: Yes (Stomach) Mother Family Member Ethnicity: Non- Living Status: Hx Family Cardiac Disorders: Yes (Stroke) Hx Family Endocrine Disorder: Yes (DM) Brother Family Member Ethnicity: Non- Living Status: Hx Family Cancer: Yes (Lung) Sister Family Member Ethnicity: Non- Living Status: Still Living Hx Family Cardiac Disorders: No Hx Family Respiratory Disorders: No Hx Family Cancer: Yes Hx Family GI Disorders: No Hx Family Endocrine Disorder: No Hx Family Neuromuscular Disorders: No Hx Family Neurologic Disorders: No Hx Family HEENT Disorders: No Hx Family Autoimmune Disorders: No Medications and Allergies Amiodarone [Cordarone] 200 mg PO DAILY 12/30/16 [History] Levothyroxine Sodium 200 mcg PO DAILY 12/30/16 [History] Warfarin [Coumadin] 2.5 mg PO WEFR 12/30/16 [History] Warfarin [Coumadin] 5 mg PO SUMOTUTHSA 12/30/16 [History] Polyethylene Glycol 3350 [MiraLAX] 17 gm PO DAILY PRN powd.pack 01/01/17 [Rx] Ascorbic Acid [Vitamin C] 500 mg PO DAILY 02/27/17 [History] Calcium Carbonate [Calcium] 500 mg PO DAILY 02/27/17 [History] Furosemide [Lasix] 20 mg PO DAILY PRN 02/27/17 [History] Mirtazapine 7.5 mg PO HS 02/27/17 [History] Sennosides/Docusate Sodium [Senna-Docusate Sodium Tablet] 1 tab PO BID PRN 02/27/17 [History] Sertraline [Zoloft] 50 mg PO DAILY 02/27/17 [History] Cefepime HCl/Dextrose, Iso-Osm [Cefepime 1 gm Injection] 1 gm IV BID #4 mls 03/05/17 [Rx] HYDROcodone/Acet 5/325 mg [[place] 5-325 mg] 1 tab PO Q4HR PRN #20 tablet 03/05/17 [Rx] Allergy/AdvReac Type Severity Reaction Status Date / Time meperidine [From Demerol] AdvReac Unresponsiv Verified 12/30/16 11:12 e ROS unobtainable: due to mental status (Patient confused and has dementia.) - Constitutional Constitutional ROS PAL: frequent falls - Cardiovascular Cardiovascular ROS: no chest pain, no dyspnea on exertion, no radiating pain - Respiratory Respiratory: no chest congestion - Gastrointestinal Gastrointestinal: abdominal pain, bloating, no nausea, no vomiting - Musculoskeletal Musculoskeletal ROS IM: back pain, myalgias - Integumentary ROS Integumentary: wounds (Sacral Wound), no skin pain, no skin ulcer - Neurological Neurological ROS: memory loss, weakness - Psychiatric Psychiatric general PM: difficulty concentrating, memory loss, no anxiety Palliative Care-Exam - Constitutional Vitals: Temp Pulse Resp BP Pulse Ox 97.9 F 49 16 104/55 97 04/02/18 08:00 04/02/18 09:00 04/02/18 09:00 04/02/18 09:00 04/02/18 09:00 General appearance: Present: cooperative, no acute distress - Head Head Exam: Present: atraumatic, normal inspection - Eye Eye exam: Present: EOMI, normal appearance, PERRL, conjuntiva pink. Absent: periorbital swelling, periorbital tenderness - ENT ENT exam: Present: mucous membranes dry, normal external ear exam - Expanded ENT Exam Throat exam: Present: normal inspection - Neck Neck exam: Present: full ROM, normal inspection - Respiratory Respiratory exam: Present: CTAB. Absent: accessory muscle use, respiratory distress - Cardiovascular Cardiovascular exam: Present: irregular rhythm - Expanded Cardiovascular Exam Peripheral pulses: 1+: Radial (L), Radial (R), Posterior Tibialis (L), Posterior Tibialis (R), Dorsalis Pedis (L) PM, Dorsalis Pedis (R) PM - GI/Abdominal Exam GI/Abdominal exam: Present: diminished bowel sounds, distended, tenderness - Rectal Rectal exam: Present: deferred - Catheter Type: Urethral (Sanon) (minimal output with sediment and blood noted to tubing.) - Extremities Exam Extremities exam: Present: normal inspection. Absent: calf tenderness, full ROM, normal capillary refill, pedal edema, tenderness - Back Exam Back exam: Present: normal inspection, tenderness - Neurological Exam Neurological exam: Present: alert, altered, strengths equal and symetr throughout. Absent: oriented X3, facial droop - Expanded Neurological Exam Patient oriented to: Absent: person, place, time Coma Scale Eye Opening: Spontaneous Coma Scale Motor Response: Obeys Commands Coma Scale Verbal Response: Confused Coma Scale Total: 14 - Psychiatric Psychiatric exam: Present: normal affect, normal mood - Skin Skin exam: Present: dry, petechiae, warm. Absent: intact (Patient has sacral wound. Patient also noted to have bruising across body.) Internal Medicine - CN: Reslt - Labs CBC & Chem 7: 04/02/18 04:17 04/02/18 04:17 Labs: Short CBC 04/01/18 04/02/18 Range/Units 22:39 04:17 WBC 52.8 H* 46.1 H* (4.3-11.1) K/mcL Hgb 12.4 12.0 (11.5-15.4) g/dL Hct 37.3 36.6 (35.3-44.9) % Plt Count 217 221 (140-400) K/mcL Neutrophils # 47.5 H 41.1 H (1.6-8.9) K/mcL BMP 04/01/18 04/02/18 22:39 04:17 Sodium 141 141 Potassium 4.4 4.3 Chloride 109 H 111 H Carbon Dioxide 21 L 24 BUN 40 H 40 H Creatinine 1.14 1.02 Glucose 161 H 109 H Calcium 7.7 L 7.5 L Cardiac Enzymes 04/01/18 Range/Units 22:39 Troponin I 0.05 H* (< 0.04) ng/mL Liver Function 04/01/18 Range/Units 22:39 Total Bilirubin 0.9 (0.3-1.0) mg/dL Direct Bilirubin 0.3 H (0.0-0.2) mg/dL AST 109 H (13-39) Units/L ALT 78 H (7-52) Units/L Alkaline Phosphatase 200 H (34-104) Units/L Albumin 2.5 L (3.5-5.7) g/dL Urine 04/01/18 Range/Units 23:27 Urine Color Red A (Yellow) Urine Clarity Turbid A (Clear) Urine pH 6.0 (5.0-8.0) pH Units Ur Specific [place] 1.007 L (1.010-1.025) Urine Protein 100 H (Neg-Trace) mg/dL Urine Glucose (UA) Normal (Normal) mg/dL - ABG Interpretation ABG results: PT/INR, D-dimer PT 28.5 Seconds (9.4-12.1) H 04/01/18 22:38 - Impressions Impressions Chest X-Ray 04/01/18 22:02 IMPRESSION: The heart is borderline enlarged. The lungs are grossly clear. D/ / Steven Laureano MD / Steven Laureano MD Interpreting Provider: Steven Laureano MD Abdomen/Pelvis CT 04/01/18 23:26 IMPRESSION: Sigmoid diverticulosis with short segment of uncomplicated diverticulitis involving the distal sigmoid colon. Asymmetric wall thickening versus adherent stool along the distal rectum and anus. Correlate with physical exam for underlying mass. New moderate right hydroureteronephrosis with surrounding periureteral and perinephric inflammatory stranding which could indicate concomitant urinary tract infection. Focus of gas within the proximal ureter may relate to [place]on catheter placement as there is also nondependent gas within the urinary bladder. This could also relate to underlying cystitis/ascending urinary tract infection. No obstructing stone. 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 Mild interval increase in T10 compression deformity. Chronic Findings Unchanged bile duct dilatation. Uncomplicated appearing right inguinal hernia containing nonobstructed small bowel. 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 Unchanged T2 and T4 compression deformities. Updated impression with sacral decubitus ulcer findings were called by Dr. Lisandro Avitia to [employer] RN on 04/02/2018 at 07:06. D/ / Lisandro Avitia / Lisandro Avitia Interpreting Provider: Lisandro Avitia Consult Discharge Plan - Plan Referrals: NONE,PCP [Primary Care Provider] - Palliative Quality Palliative Quality: Screen for Code Status: Yes, Screen for Goals of Care: Yes, Screen for Pain: Yes, If Pain Regimen Started, Initiate Bowel Regimen: NA, Screen for Nausea/Vomitting: Yes Code Status: 04/02/18 03:12 Resuscitation Status: Active [RES] Routine Comment: Resuscitation Status: Full Code Palliative Scale - Palliative Performance Scale How ambulatory is this patient?: Totally bed bound What is patient's level of activity and evidence of disease?: Unable to do any work, Extensive disease How much self-care assistance does patient require?: Total care How much oral intake does the patient have?: Normal or reduced What is this patient's level of consciousness?: Full or drowsy with or without confusion Palliative Performance Score: 30 %
--- NOTE | 2018-04-02 12:51 | Event Note ---
Date of Encounter: 04/02/18 Time of Encounter: 12:49 Patient seen and examined. Patient pleasantly confused. She states that she feels okay. She cannot verbalize any specific complaints. Patient has evidence of severe sepsis is responsive to fluid and not progressing to septic shock. Source likely urinary tract. CT scan revealed hydronephrosis with no evidence of renal stone. Urology saw the patient and recommend stent placement however given the patient's altered mental status and previous report of enrolled in hospice is unclear what the patient's ultimate wishes and goals of care are. Palliative Care assisting in discussions with the medical power of privacy attorney and there is a plan to meet later this afternoon to go over the options for further treatment. Continue antibiotics with Zosyn
[2018-04-02] MEDS ORDERED: 0.9 % Sodium Chloride 500 ML IVC ONE (13:16)
[2018-04-02] MEDS: MORPHINE SUL Oral CONC 10 MG/0.5 ML ORAL.SYG SL PRN ×2 (16:05→22:31)
--- NOTE | 2018-04-02 18:15 | Event Note ---
Date of Encounter: 04/02/18 Time of Encounter: 18:11 I had a 30 minute conversation with the patient's daughter at the bedside. Were discussing treatment options which include proceeding with a ureteral stent placement for the hydronephrosis versus a more palliative approach which would include hydration and antibiotics only. If we proceeded with a ureteral stent placement it would likely need to be done in the operating room secondary to pain issues as the patient did have significant discomfort during the catheter change. We discussed that general anesthesia or sedation carry significant risk that she has been having hypotensive episodes. It is possible that she would require prolonged intubation and pressors. The intent of the stent placement would be to decompress the kidney and potential infection to help relieve the sepsis. Alternatively, a palliative approach may be more appropriate in this patient because she is quite debilitated, bedridden and residential dependent. In addition she does not appear to be uncomfortable from the hydronephrosis. The patient's daughter asked me what I would want done for my family member and I feel that a palliative approach with consideration to change her CODE STATUS to DNR comfort care only. We discussed that even if she is treated for the hydronephrosis and sepsis it will not bring back a significant quality of life. At this point they have elected to observe and continue IV fluids and hydration and not proceed with any urologic intervention. I have asked the nursing staff to contact the ICU staff to discuss with the family changing the CODE STATUS. Consider transition to a hospice floor over the next few days depending on her condition. I will reevaluate the patient in the morning to verify no changes to this decision or her condition.
[2018-04-02] MEDS: *HR* Heparin 5,000 UNIT/ML VIAL SQ SCH (18:34)
[2018-04-03 02:48] LABS: Hematocrit 36.3 % (35.3-44.9); Hemoglobin 11.9 g/dL (11.5-15.4); Mean Corpuscular HGB Conc 32.8 g/dL (31.6-35.5); Mean Corpuscular Hemoglobin 31.9 pg (28.0-33.3); Mean Corpuscular Volume 97.3 fL (83.0-100.0); Platelet Count 206 K/mcL (140-400); Red Blood Count 3.73 M/mcL (3.82-4.97)
[2018-04-03 03:05] LABS: Lymphocytes # 1.4 K/mcL (0.6-4.6)
[2018-04-03 03:06] LABS: BUN/Creatinine Ratio 75 (6-26); Blood Urea Nitrogen 38 mg/dL (8-23); Calcium 7.6 mg/dL (8.6-10.3); Carbon Dioxide 22 mEq/L (23-29); Chloride 114 mEq/L (98-107); Glucose 62 mg/dL (70-105); Osmolality,Calculated 301 (280-300); Potassium 3.8 mEq/L (3.5-5.1); Sodium 142 mEq/L (136-145); eGFR For Non-African Americans > 60 (> 60)
[2018-04-03 03:17] LABS: Monocytes # 0.7 K/mcL (0.0-1.3); Neutrophils # 33.9 K/mcL (1.6-8.9); Platelet Estimate Normal (Normal)
[2018-04-03] MEDS: *HR* Heparin 5,000 UNIT/ML VIAL SQ SCH ×2 (06:11→16:53)
--- NOTE | 2018-04-03 07:37 | Internal Med Progress Note ---
Hospitalist Progress Note - Encounter Date of Encounter: 04/03/18 Time of Encounter: 07:35 - Subjective Interval History: Patient seen and examined at bedside. Patient states that she feels better this morning. She appears to be much more awake and alert. She has minimal complaints at this time, she does abdominal pain, nausea, vomiting - Exam Vitals: Temp Pulse Resp BP Pulse Ox 98.1 F 43 12 120/59 97 04/03/18 04:00 04/03/18 06:00 04/03/18 06:00 04/03/18 06:00 04/03/18 06:00 Exam: Gen.: Alert and oriented 1, no acute distress, pleasantly confused Heart: Bradycardia, regular rhythm, no murmurs, rubs, gallops Lungs: Clear to auscultation bilaterally, no rales, rhonchi, wheezes Abdomen: Soft, nontender, nondistended. Normoactive bowel sounds - Assessment and Plan (1) Sepsis Current Visit: Yes Status: Acute Assessment and Plan: Secondary to urinary tract infection with gram-negative guillermina. Sepsis has resolved at this time as patient no longer has tachycardia, tachypnea, fever. White blood cell count improving. Continue Zosyn for antibiotics as urine culture results return (2) UTI (urinary tract infection) Current Visit: Yes Status: Acute Assessment and Plan: Patient presented with urinary catheter in place that was changed on admission. Urine culture is preliminarily positive for gram-negative rods. Given her critical illness we will continue Zosyn for now and we will de-escalate based on sensitivity results. Overall appears improving (3) Atrial fibrillation Current Visit: Yes Status: Chronic Assessment and Plan: Currently has sinus bradycardia, asymptomatic. Was on Coumadin as an outpatient, we will continue to hold at this time as we discuss goals of care. (4) Hypotension Current Visit: Yes Status: Acute (5) Sacral decubitus ulcer Current Visit: Yes Status: Acute Assessment and Plan: Present on admission. I feel like this is less likely be active source of infection. Dressing applied, clean dry and intact (6) DVT prophylaxis Current Visit: Yes Status: Acute Assessment and Plan: Heparin 5000 units subcutaneous twice a day - Time Spent with Patient Total time spent is greater than 50% in coordination of care (as documented) at patient's floor/unit and/or counseling patient: Internal Medicine: Result - Labs CBC & Chem 7: 04/03/18 02:26 04/03/18 02:26 Labs: Short CBC 04/03/18 Range/Units 02:26 WBC 36.1 H* (4.3-11.1) K/mcL Hgb 11.9 (11.5-15.4) g/dL Hct 36.3 (35.3-44.9) % Plt Count 206 (140-400) K/mcL Neutrophils # 33.9 H (1.6-8.9) K/mcL BMP 04/03/18 02:26 Sodium 142 Potassium 3.8 Chloride 114 H Carbon Dioxide 22 L BUN 38 H Creatinine 0.51 L Glucose 62 L Calcium 7.6 L - ABG Interpretation ABG results: PT/INR, D-dimer PT 28.5 Seconds (9.4-12.1) H 04/01/18 22:38 Consult Discharge Plan - Plan Referrals: NONE,PCP [Primary Care Provider] - (1) Sepsis Qualifiers: Sepsis type: sepsis due to unspecified organism Qualified Code(s): A41.9 - Sepsis, unspecified organism (2) UTI (urinary tract infection) Qualifiers: Urinary tract infection type: catheter-associated UTI Indwelling urinary catheter type: unspecified Encounter type: subsequent encounter Qualified Code(s): T83.511D - Infection and inflammatory reaction due to indwelling urethral catheter, subsequent encounter; N39.0 - Urinary tract infection, site not specified (3) Atrial fibrillation Qualifiers: Atrial fibrillation type: paroxysmal Qualified Code(s): I48.0 - Paroxysmal atrial fibrillation (4) Hypotension Qualifiers: Hypotension type: unspecified hypotension type Qualified Code(s): I95.9 - Hypotension, unspecified (5) Sacral decubitus ulcer Qualifiers: Pressure injury stage: stage 3 Qualified Code(s): L89.153 - Pressure ulcer of sacral region, stage 3
[2018-04-03] MEDS: Piperacillin/Tazobactam 3.375 GM in 0.9 % Sodium Chloride Mini Bag 100 ML IVPB SCH ×2 (07:47→16:53)
--- NOTE | 2018-04-03 09:03 | Urology Progress Note ---
Date of Encounter: 04/03/18 Time of Encounter: 09:01 - Assessment and Plan (1) Hydronephrosis Current Visit: Yes Status: Acute Assessment and plan: The patient's family was not available for further discussion today. She remained stable overnight. She was transitioned to DNR. She being transferred to a stepdown bed. Continued conservative management remains most appropriate. Continue IV fluids and antibiotics. Follow cultures. Qualifiers: Hydronephrosis type: unspecified Qualified Code(s): N13.30 - Unspecified hydronephrosis Progress Note Narrative: No acute events overnight Objective Initial Vital Signs Temp Pulse Resp BP Pulse Ox 98.7 F 56 22 91/44 94 04/01/18 21:50 04/01/18 21:50 04/01/18 21:50 04/01/18 21:50 04/01/18 21:50 - General physical appearance Present: no pain, chronically ill - Additional Exam Sanon catheter with clear urine - Labs 04/03/18 02:26 04/03/18 02:26 Diabetes panel 04/03/18 Range/Units 02:26 Sodium 142 (136-145) mEq/L Potassium 3.8 (3.5-5.1) mEq/L Chloride 114 H (98-107) mEq/L Carbon Dioxide 22 L (23-29) mEq/L BUN 38 H (8-23) mg/dL Creatinine 0.51 L (0.60-1.20) mg/dL Glucose 62 L (70-105) mg/dL Calcium 7.6 L (8.6-10.3) mg/dL Calcium panel 04/03/18 Range/Units 02:26 Calcium 7.6 L (8.6-10.3) mg/dL Pituitary panel 04/03/18 Range/Units 02:26 Sodium 142 (136-145) mEq/L Potassium 3.8 (3.5-5.1) mEq/L Chloride 114 H (98-107) mEq/L Carbon Dioxide 22 L (23-29) mEq/L BUN 38 H (8-23) mg/dL Creatinine 0.51 L (0.60-1.20) mg/dL Glucose 62 L (70-105) mg/dL Calcium 7.6 L (8.6-10.3) mg/dL Adrenal panel 04/03/18 Range/Units 02:26 Sodium 142 (136-145) mEq/L Potassium 3.8 (3.5-5.1) mEq/L Chloride 114 H (98-107) mEq/L Carbon Dioxide 22 L (23-29) mEq/L BUN 38 H (8-23) mg/dL Creatinine 0.51 L (0.60-1.20) mg/dL Glucose 62 L (70-105) mg/dL Calcium 7.6 L (8.6-10.3) mg/dL Consult Discharge Plan - Plan Referrals: NONE,PCP [Primary Care Provider] -
[2018-04-03] MEDS ORDERED: Ondansetron 4 MG/2 ML VIAL IVP PRN (10:12)
[2018-04-03] MEDS ORDERED: Piperacillin/Tazobactam 3.375 GM in 0.9 % Sodium Chloride Mini Bag 100 ML IVPB SCH (11:00)
--- NOTE | 2018-04-03 12:35 | Electrocardiograph Report ---
[address] [address] Test Date: 2018-04-01 Pat Name: Carole El Department: EXAM1 Room: 2A12 Gender: F [employer] Tender: : 1930 Requested By: Daniela Andrea Order Number: [id number] Reading MD: Latricia Gallegos Measurements Intervals [place] Rate: 56 P: 43 OR: QRS: -36 QRSD: 114 T: -9 QT: 511 QTc: 494 Interpretive Statements Sinus rhythm Incomplete left bundle branch block Borderline prolonged QT interval Electronically Signed On 04-03-2018 12:34:02 EST by Latricia Gallegos
[2018-04-03] MEDS: MORPHINE SUL Oral CONC 10 MG/0.5 ML ORAL.SYG SL PRN (21:50)
[2018-04-04] MEDS: Piperacillin/Tazobactam 3.375 GM in 0.9 % Sodium Chloride Mini Bag 100 ML IVPB SCH ×4 (01:03→23:38)
[2018-04-04] MEDS: MORPHINE SUL Oral CONC 10 MG/0.5 ML ORAL.SYG SL PRN (03:30)
[2018-04-04] MEDS: *HR* Heparin 5,000 UNIT/ML VIAL SQ SCH ×2 (05:07→17:00)
[2018-04-04 06:55] LABS: Basophils # 0.1 K/mcL (0.0-0.2); Basophils % 0.3 %; Eosinophils # 0.5 K/mcL (0.0-0.6); Eosinophils % 2.9 %; Hematocrit 35.7 % (35.3-44.9); Hemoglobin 11.7 g/dL (11.5-15.4); Immature Granulocytes % 1.4 % (0-4); Lymphocytes # 1.9 K/mcL (0.6-4.6); Lymphocytes % 12.4 %; Mean Corpuscular HGB Conc 32.8 g/dL (31.6-35.5); Mean Corpuscular Hemoglobin 31.8 pg (28.0-33.3); Mean Platelet Volume 11.9 fL (9.4-12.4); Monocytes # 0.6 K/mcL (0.0-1.3); Monocytes % 4.1 %; Platelet Count 200 K/mcL (140-400); Red Blood Count 3.68 M/mcL (3.82-4.97); Red Cell Distribution Width 15.8 % (11.5-14.5); Segmented Neutrophils % 78.9 %
[2018-04-04 06:56] LABS: Neutrophils # 12.2 K/mcL (1.6-8.9)
[2018-04-04 07:13] LABS: BUN/Creatinine Ratio 54 (6-26); Blood Urea Nitrogen 27 mg/dL (8-23); Calcium 7.7 mg/dL (8.6-10.3); Carbon Dioxide 24 mEq/L (23-29); Chloride 111 mEq/L (98-107); Glucose 77 mg/dL (70-105); Osmolality,Calculated 292 (280-300); Potassium 3.6 mEq/L (3.5-5.1); Sodium 139 mEq/L (136-145); eGFR For Non-African Americans > 60 (> 60)
--- NOTE | 2018-04-04 09:55 | Urology Progress Note ---
Date of Encounter: 04/04/18 Time of Encounter: 09:55 - Assessment and Plan (1) Hydronephrosis Current Visit: Yes Status: Acute Assessment and plan: Continue palliative management only with IV fluids and antibiotics. Cultures pending. Consider discharge after sensitivities return to guide outpatient antibiotic management. Qualifiers: Hydronephrosis type: unspecified Qualified Code(s): N13.30 - Unspecified hydronephrosis Progress Note Narrative: Patient seems pleasantly confused today. No acute events overnight Objective Initial Vital Signs Temp Pulse Resp BP Pulse Ox 98.7 F 56 22 91/44 94 04/01/18 21:50 04/01/18 21:50 04/01/18 21:50 04/01/18 21:50 04/01/18 21:50 - General physical appearance Present: no distress - Additional Exam Urine clear - Labs 04/04/18 06:26 04/04/18 06:26 Diabetes panel 04/04/18 Range/Units 06:26 Sodium 139 (136-145) mEq/L Potassium 3.6 (3.5-5.1) mEq/L Chloride 111 H (98-107) mEq/L Carbon Dioxide 24 (23-29) mEq/L BUN 27 H (8-23) mg/dL Creatinine 0.50 L (0.60-1.20) mg/dL Glucose 77 (70-105) mg/dL Calcium 7.7 L (8.6-10.3) mg/dL Calcium panel 04/04/18 Range/Units 06:26 Calcium 7.7 L (8.6-10.3) mg/dL Pituitary panel 04/04/18 Range/Units 06:26 Sodium 139 (136-145) mEq/L Potassium 3.6 (3.5-5.1) mEq/L Chloride 111 H (98-107) mEq/L Carbon Dioxide 24 (23-29) mEq/L BUN 27 H (8-23) mg/dL Creatinine 0.50 L (0.60-1.20) mg/dL Glucose 77 (70-105) mg/dL Calcium 7.7 L (8.6-10.3) mg/dL Adrenal panel 04/04/18 Range/Units 06:26 Sodium 139 (136-145) mEq/L Potassium 3.6 (3.5-5.1) mEq/L Chloride 111 H (98-107) mEq/L Carbon Dioxide 24 (23-29) mEq/L BUN 27 H (8-23) mg/dL Creatinine 0.50 L (0.60-1.20) mg/dL Glucose 77 (70-105) mg/dL Calcium 7.7 L (8.6-10.3) mg/dL Consult Discharge Plan - Plan Referrals: NONE,PCP [Primary Care Provider] -
--- NOTE | 2018-04-04 15:13 | Internal Med Progress Note ---
Hospitalist Progress Note - Encounter Date of Encounter: 04/04/18 Time of Encounter: 15:11 - Subjective Interval History: pt is confused, tod me that she lives with her grandson at home She actually lies at [place]. - Exam Vitals: Temp Pulse Resp BP Pulse Ox 98.9 F 42 20 112/56 95 04/04/18 10:54 04/04/18 10:54 04/04/18 10:54 04/04/18 10:54 04/04/18 10:54 Exam: Gen.: Alert and oriented 1, no acute distress, pleasantly confused Heart: Bradycardia, regular rhythm, no murmurs, rubs, gallops Lungs: Clear to auscultation bilaterally, no rales, rhonchi, wheezes Abdomen: Soft, nontender, nondistended. Normoactive bowel sounds - Summary of Assessment and Plan Summary of Assessment and Plan: (1) Sepsis Current Visit: Yes Status: Acute Assessment and Plan: resovling likely due to UTI (2) UTI (urinary tract infection) Current Visit: Yes Status: Acute Assessment and Plan: jonathon E Coli, possible Kelb, maybe psudomonoa, acinebacor (3) Atrial fibrillation Current Visit: Yes Status: Chronic Assessment and Plan: Currently has sinus bradycardia, asymptomatic. Was on Coumadin as an outpatient, we will continue to hold at this time as we discuss goals of care. (4) Hypotension Current Visit: Yes Status: Acute (5) Sacral decubitus ulcer Current Visit: Yes Status: Acute Assessment and Plan: Present on admission. I feel like this is less likely be active source of infection. Dressing applied, clean dry and intact (6) Dsipo: back to SD int he AM after WBC impoves Time: 35min - Time Spent with Patient Total time spent is greater than 50% in coordination of care (as documented) at patient's floor/unit and/or counseling patient: Internal Medicine: Result - Labs CBC & Chem 7: 04/04/18 06:26 04/04/18 06:26 Labs: Short CBC 04/04/18 Range/Units 06:26 WBC 15.5 H D (4.3-11.1) K/mcL Hgb 11.7 (11.5-15.4) g/dL Hct 35.7 (35.3-44.9) % Plt Count 200 (140-400) K/mcL Neutrophils # 12.2 H (1.6-8.9) K/mcL BMP 04/04/18 06:26 Sodium 139 Potassium 3.6 Chloride 111 H Carbon Dioxide 24 BUN 27 H Creatinine 0.50 L Glucose 77 Calcium 7.7 L - ABG Interpretation ABG results: PT/INR, D-dimer PT 28.5 Seconds (9.4-12.1) H 04/01/18 22:38 Consult Discharge Plan - Plan Referrals: NONE,PCP [Primary Care Provider] -
[2018-04-05] MEDS: MORPHINE SUL Oral CONC 10 MG/0.5 ML ORAL.SYG SL PRN ×2 (01:40→14:24)
[2018-04-05] MEDS: *HR* Heparin 5,000 UNIT/ML VIAL SQ SCH (04:34)
[2018-04-05 05:28] LABS: Basophils # 0.1 K/mcL (0.0-0.2); Basophils % 0.6 %; Eosinophils # 0.1 K/mcL (0.0-0.6); Eosinophils % 1.2 %; Hemoglobin 12.8 g/dL (11.5-15.4); Immature Granulocytes % 3.6 % (0-4); Lymphocytes # 1.4 K/mcL (0.6-4.6); Mean Corpuscular HGB Conc 32.8 g/dL (31.6-35.5); Mean Corpuscular Hemoglobin 31.4 pg (28.0-33.3); Mean Corpuscular Volume 95.6 fL (83.0-100.0); Mean Platelet Volume 12.1 fL (9.4-12.4); Monocytes # 0.5 K/mcL (0.0-1.3); Monocytes % 4.8 %; Neutrophils # 8.8 K/mcL (1.6-8.9); Platelet Count 212 K/mcL (140-400); Red Blood Count 4.08 M/mcL (3.82-4.97); Red Cell Distribution Width 15.3 % (11.5-14.5); Segmented Neutrophils % 77.8 %
[2018-04-05 05:50] LABS: BUN/Creatinine Ratio 44 (6-26); Blood Urea Nitrogen 20 mg/dL (8-23); Calcium 7.9 mg/dL (8.6-10.3); Carbon Dioxide 25 mEq/L (23-29); Chloride 110 mEq/L (98-107); Glucose 80 mg/dL (70-105); Osmolality,Calculated 294 (280-300); Potassium 3.4 mEq/L (3.5-5.1); Sodium 141 mEq/L (136-145); eGFR For Non-African Americans > 60 (> 60)
[2018-04-05] MEDS: 0.9 % Sodium Chloride 1,000 ML IVC SCH (07:48)
[2018-04-05] MEDS: Piperacillin/Tazobactam 3.375 GM in 0.9 % Sodium Chloride Mini Bag 100 ML IVPB SCH (08:56)
--- NOTE | 2018-04-05 09:08 | Urology Progress Note ---
Date of Encounter: 04/05/18 Time of Encounter: 09:06 - Assessment and Plan (1) Hydronephrosis Current Visit: Yes Status: Acute Assessment and plan: pt seems to be recovering well. appears back to baseline. cultures available. OK with discharge from standpoint. 2 weeks of PO cx specific ABX. unsure if cath was chronic? if she doesnt have a chronic indwelling cath then ok to remove. Qualifiers: Hydronephrosis type: unspecified Qualified Code(s): N13.30 - Unspecified hydronephrosis Progress Note Subjective: feels better Narrative: pt states she feels well. Objective Initial Vital Signs Temp Pulse Resp BP Pulse Ox 98.7 F 56 22 91/44 94 04/01/18 21:50 04/01/18 21:50 04/01/18 21:50 04/01/18 21:50 04/01/18 21:50 - General physical appearance Present: no distress - Additional Exam ingram with clear urine. - Labs 04/05/18 04:44 04/05/18 04:44 Diabetes panel 04/05/18 Range/Units 04:44 Sodium 141 (136-145) mEq/L Potassium 3.4 L (3.5-5.1) mEq/L Chloride 110 H (98-107) mEq/L Carbon Dioxide 25 (23-29) mEq/L BUN 20 (8-23) mg/dL Creatinine 0.45 L (0.60-1.20) mg/dL Glucose 80 (70-105) mg/dL Calcium 7.9 L (8.6-10.3) mg/dL Calcium panel 04/05/18 Range/Units 04:44 Calcium 7.9 L (8.6-10.3) mg/dL Pituitary panel 04/05/18 Range/Units 04:44 Sodium 141 (136-145) mEq/L Potassium 3.4 L (3.5-5.1) mEq/L Chloride 110 H (98-107) mEq/L Carbon Dioxide 25 (23-29) mEq/L BUN 20 (8-23) mg/dL Creatinine 0.45 L (0.60-1.20) mg/dL Glucose 80 (70-105) mg/dL Calcium 7.9 L (8.6-10.3) mg/dL Adrenal panel 02/11/19 Range/Units 04:44 Sodium 141 (136-145) mEq/L Potassium 3.4 L (3.5-5.1) mEq/L Chloride 110 H (98-107) mEq/L Carbon Dioxide 25 (23-29) mEq/L BUN 20 (8-23) mg/dL Creatinine 0.45 L (0.60-1.20) mg/dL Glucose 80 (70-105) mg/dL Calcium 7.9 L (8.6-10.3) mg/dL Consult Discharge Plan - Plan Referrals: NONE,PCP [Primary Care Provider] -
--- NOTE | 2018-04-05 09:52 | Palliative Progress Note ---
Date of Encounter: 04/05/18 Time of Encounter: 09:20 - Assessment and plan (1) Goals of care, counseling/discussion Current Visit: Yes Status: Acute Assessment and plan: Called and left message for son in law requesting return phone call on his cell [phone]. No answer on Shaneka's two numbers listed in chart and no voicemail. [phone]: Had goals of care discussion with patient's secondary MPOA, with Shaneka Primary MPOA available on speaker phone, via telephone conversation. Confirmed discharge plan to return to [facility] as a [facility] patient; patient will have to be reenrolled upon return to [facility]. Family reports in the past they have had difficulty sending patient to [facility] as a skilled patient and desire against this action. Confirmed CODE STATUS wishes. Family desires patient's CODE STATUS be changed to DNRCC with intent of keeping patient comfortable. State form completed. Family reports they will be coming to hospital to visit patient this evening. Requested Primary RN notify family if patient would be returning to [facility] prior to evening visit. Notified Marycruz LOERA. Discharge plan in place. Patient reports no further symptoms to be managed. Palliative care will sign off. Please re-consult as needed. Thank you for including our team in the care of your patient. (2) Confusion Current Visit: Yes Status: Acute Assessment and plan: Stable. Patient at baseline. (3) Diverticulitis Current Visit: Yes Status: Acute (4) Hydronephrosis Current Visit: Yes Status: Acute Assessment and plan: Management per Primary team and Urology. WBC improving. Qualifiers: Hydronephrosis type: unspecified Qualified Code(s): N13.30 - Unspecified hydronephrosis (5) Hypotension Current Visit: Yes Status: Acute Assessment and plan: BP stable 125/62. Qualifiers: Hypotension type: unspecified hypotension type Qualified Code(s): I95.9 - Hypotension, unspecified (6) Sacral decubitus ulcer, stage IV Current Visit: No Status: Acute Assessment and plan: Wound care following. (7) Dementia Current Visit: No Status: Chronic Qualifiers: Dementia type: unspecified type Dementia behavioral disturbance: without behavioral disturbance Qualified Code(s): F03.90 - Unspecified dementia without behavioral disturbance - Time Spent With Patient Total time spent is greater than 50% in coordination of care (as documented) at patient's floor/unit and/or counseling patient: 5 minute chart review 15 minute assessment of patient and evaluation of symptoms. 10 minute conference with family via telephone for goals of care determination. 5 minutes updating Primary RN and SW of discharge plan. 25 - 35 minutes - Subjective Interval history: Patient sitting in bed upon arrival for assessment. No family at bedside. Remains pleasantly confused, thinking she is at "the center," denies hospitalization, and reports it is "1967." Patient is alert to person only. Patient reports some back pain, primary nurse bringing pain medication; has received 1 dose Roxanol in the last 24 hours. Urology Physician present at bedside upon arrival, decision was make to follow Palliative approach and patient is improving. Patient denies anxiety, dyspnea, nausea, and vomiting. - Constitutional Vitals: Abnormal lab results WBC 11.3 K/mcL (4.3-11.1) H 04/05/18 04:44 RDW 15.3 % (11.5-14.5) H 04/05/18 04:44 PT 28.5 Seconds (9.4-12.1) H 04/01/18 22:38 Potassium 3.4 mEq/L (3.5-5.1) L 04/05/18 04:44 Chloride 110 mEq/L (98-107) H 04/05/18 04:44 Creatinine 0.45 mg/dL (0.60-1.20) L 04/05/18 04:44 BUN/Creatinine Ratio 44 (6-26) H 04/05/18 04:44 POC Glucose 117 mg/dL (70-99) H 04/02/18 01:44 Calcium 7.9 mg/dL (8.6-10.3) L 04/05/18 04:44 Direct Bilirubin 0.3 mg/dL (0.0-0.2) H 04/01/18 22:39 AST 109 Units/L (13-39) H 04/01/18 22:39 ALT 78 Units/L (7-52) H 04/01/18 22:39 Alkaline Phosphatase 200 Units/L (34-104) H 04/01/18 22:39 Troponin I 0.05 ng/mL (< 0.04) H* 04/01/18 22:39 Serum Total Protein 5.7 g/dL (6.4-8.9) L 04/01/18 22:39 Albumin 2.5 g/dL (3.5-5.7) L 04/01/18 22:39 Albumin/Globulin Ratio 0.8 (1.1-2.2) L 04/01/18 22:39 Lipase 3 Units/L (11-82) L 04/01/18 22:39 Urine Color Red (Yellow) A 04/01/18 23:27 Urine Clarity Turbid (Clear) A 04/01/18 23:27 Ur Specific [place] 1.007 (1.010-1.025) L 04/01/18 23:27 Urine Protein 100 mg/dL (Neg-Trace) H 04/01/18 23:27 Urine Ketones Trace mg/dL (Negative) H 04/01/18 23:27 Urine Blood Large (Negative) H 04/01/18 23:27 Urine Bilirubin Small (Negative) H 04/01/18 23:27 Ur Leukocyte Esterase Large (Negative) H 04/01/18 23:27 Urine Microscopic WBC TNTC per hpf (0-3) H 04/01/18 23:27 Ur Squamous Epith Cells Many per lpf (None-Few) H 04/01/18 23:27 Urine Bacteria Many per hpf (None-Few) H 04/01/18 23:27 Urine Yeast Few per hpf (None Seen) H 04/01/18 23:27 Ur Culture Indicated? NO. (NO) A 04/01/18 23:27 General appearance: Present: disheveled, no acute distress - Head Head exam: Present: atraumatic, normal inspection - Eye Eye exam: Present: normal appearance, PERRL. Absent: periorbital swelling, periorbital tenderness Pupils: Present: normal accommodation, PERRL - ENT ENT exam: Present: mucous membranes dry, normal external ear exam - Neck Neck exam: Present: full ROM, normal inspection - Respiratory Respiratory exam: Present: CTAB, wheezes. Absent: accessory muscle use, respiratory distress, rhonchi - Cardiovascular Cardiovascular exam: Present: +S1, +S2 - GI/Abdominal GI/Abdominal exam: Present: normal bowel sounds, soft. Absent: guarding, tenderness - Rectal Rectal exam: Present: deferred - Additional comments: Sanon catheter in place with clear yellow urine. - Extremities Exam Extremities exam: Present: full ROM, normal inspection. Absent: calf tenderness, pedal edema - Back Exam Back exam: Present: full ROM, normal inspection - Neurological Exam Neurological exam: Present: alert, altered, strengths equal and symetr throughout. Absent: oriented X3 - Psychiatric Psychiatric exam: Present: flat affect, normal mood - Skin Skin exam: Present: intact, pallor, warm Palliative Quality Palliative Quality: Screen for Code Status: Yes, Screen for Goals of Care: Yes, Screen for Pain: Yes, If Pain Regimen Started, Initiate Bowel Regimen: NA, Screen for Nausea/Vomitting: Yes Code Status: 04/02/18 03:12 Resuscitation Status: Active [RES] Routine Comment: Resuscitation Status: Full Code 04/02/18 18:18 CODE [Resuscitation Status: Active] [RES] Routine Comment: Resuscitation Status: [id number] - Labs CBC & Chem 7: 04/05/18 04:44 04/05/18 04:44 Labs: Laboratory Results - last 24 hr 04/05/18 04/05/18 04:44 04:44 WBC 11.3 H RBC 4.08 Hgb 12.8 Hct 39.0 MCV 95.6 MCH 31.4 MCHC 32.8 RDW 15.3 H Plt Count 212 MPV 12.1 Immature Gran % 3.6 Seg Neutrophils % 77.8 Lymphocytes % 12.0 Monocytes % 4.8 Eosinophils % 1.2 Basophils % 0.6 Neutrophils # 8.8 Lymphocytes # 1.4 Monocytes # 0.5 Eosinophils # 0.1 Basophils # 0.1 Sodium 141 Potassium 3.4 L Chloride 110 H Carbon Dioxide 25 BUN 20 Creatinine 0.45 L Est GFR ( Amer) > 60 Est GFR (Non-Af Amer) > 60 BUN/Creatinine Ratio 44 H Glucose 80 Calculated Osmolality 294 Calcium 7.9 L - ABG Interpretation ABG results: PT/INR, D-dimer PT 28.5 Seconds (9.4-12.1) H 04/01/18 22:38 Palliative Scale - Palliative Performance Scale How ambulatory is this patient?: Totally bed bound What is patient's level of activity and evidence of disease?: Unable to do any work, Extensive disease How much self-care assistance does patient require?: Total care How much oral intake does the patient have?: Normal or reduced What is this patient's level of consciousness?: Full or drowsy with or without confusion Palliative Performance Score: 30 % Consult Discharge Plan - Plan Referrals: NONE,PCP [Primary Care Provider] - ([facility])
--- NOTE | 2018-04-05 13:56 | Discharge Summary ---
Orders not resulted at time of discharge: Pending orders 04/01/18 22:39 Culture,Blood [BC] Stat 04/06/18 04:00 Basic Metabolic Panel AM 0400 Complete Blood Count [HEME] AM 0400 04/07/18 04:00 Basic Metabolic Panel AM 0400 Complete Blood Count [HEME] AM 0400 Date of Encounter: 04/05/18 Time of Encounter: 13:53 - Discharge Diagnosis (1) Pyelonephritis Priority: Primary Status: Acute Hospital course: Ms. El is a 87 year old female past medical history of atrial fibrillation (on coumadin) , dementia, sacral decubitus ulcer (stage III/IV) , anxiety, depression presented to the ED from [facility] because of low blood pressure. Her systolic blood pressure was 90 when the patient was seen by the ER physician. Patient does not have a very good insight into her current illn ess, and all she told me was she's been having generalized fatigue and weakness for the past few days, and has not been drinking a lot of water lately. Patient has an indwelling ingram and is non-ambulatory at baseline. She denies any history of falls or trauma, recent sicknesses or travels. She endorses no change in her recent medications. Pt was kept in [facility] and pt waas found E Coli UTi which was sensitive to bactrim, but not to qunoloones. Pt had WBC of 25 and down trended, pt is doing well, no new issues, pt deemed stable enough to be dsicharged. - Time Spent with Patient Total time spent providing and/or coordinating discharge services: Greater than 30 minutes - Discharge Medications Prescriptions: Sulfamethoxazole/Trimeth DS [Bactrim DS] 1 each PO BID #14 tablet Home Medications: Amiodarone [Cordarone] 200 mg PO DAILY 12/30/16 [History] Levothyroxine Sodium 200 mcg PO DAILY 12/30/16 [History] Polyethylene Glycol 3350 [MiraLAX] 17 gm PO DAILY PRN powd.pack 01/01/17 [Rx] Ascorbic Acid [Vitamin C] 500 mg PO DAILY 02/27/17 [History] Bisacodyl [Gentle Laxative] 10 mg RC DAILY 04/02/18 [History] Lactulose [Enulose] 10 gm PO DAILY 04/02/18 [History] MOM Conc [Milk of Magnesia Conc] 30 ml PO DAILY PRN 04/02/18 [History] Morphine Oral CONC [Roxanol] 10 mg PO Q6H PRN 04/02/18 [History] Multivitamin [Daily Multiple Vitamin] 1 tab PO DAILY 04/02/18 [History] OxyCODONE Immed Rel [Roxicodone 10 MG] 10 mg PO 0000,0600,1200,1800 04/02/18 [History] OxyCODONE Immed Rel [Roxicodone 10 MG] 10 mg PO TID PRN 04/02/18 [History] Potassium Chloride [Klor-Con 10] 10 meq PO DAILY 04/02/18 [History] Sennosides [Senna] 8.6 mg PO BID 04/02/18 [History] Sertraline [Zoloft] 25 mg PO Q48H 04/02/18 [History] Warfarin Sodium 4 mg PO 1700 04/02/18 [History] Sulfamethoxazole/Trimeth DS [Bactrim DS] 1 each PO BID #14 tablet 04/05/18 [Rx] Allergies/Adverse Reactions: Allergy/AdvReac Type Severity Reaction Status Date / Time meperidine [From Demerol] AdvReac Unresponsiv Verified 12/30/16 11:12 e Date of admission: 04/02/18 01:08 Primary care physician: PCP NONE Consults: 04/02/18 04:12 Consult to Wound Care [CONS] Routine Reason for Consult: sacral decub Call Completed: No 04/02/18 05:13 Consult to Urology [CONS] Routine Consulting Provider: Urology [facility] Reason for Consult: hydroureteronephrosis Call Completed: No 04/02/18 05:14 Consult to Palliative Care [CONS] Routine Comment: Consulting Provider: Pall[facility] [place] Reason for Consult: discuss goals of care Call Completed: No 04/04/18 07:29 PT [Consult to Physical Therapy] [CONS] Routine Comment: Evaluate, develop and implement POC Reason for Consult: debility Does patient have active BEDREST order?: No Is patient medically & hemodynamically stable?: Yes 04/04/18 14:45 Consult to Senior Ui Designer [CONS] Routine Reason for SW Consult: Patient from [facility] - Constitutional Vitals: Temp Pulse Resp BP Pulse Ox 98.4 F 47 20 132/59 90 04/05/18 10:51 04/05/18 10:51 04/05/18 10:51 04/05/18 10:51 04/05/18 10:51 General appearance: Present: cooperative, A&O X 2, pleasant, answers questions appropriately Exam: Gen.: Alert and oriented 1, no acute distress, pleasantly confused Heart: Bradycardia, regular rhythm, no murmurs, rubs, gallops Lungs: Clear to auscultation bilaterally, no rales, rhonchi, wheezes Abdomen: Soft, nontender, nondistended. Normoactive bowel sounds - Patient Status Disposition: Transfer SNF Condition: Serious - Discharge Instructions Follow Up With: NONE,PCP [Primary Care Provider] - (patient is from [facility])
--- NOTE | 2018-04-05 15:17 | Physician Discharge Referral ---
ExtendedCare Referral Info Transfer To: SNF Provider in Charge after Transfer: [employer] - Diagnosis (1) Pyelonephritis Priority: Primary Status: Acute - Transfer Medications Prescriptions: Sulfamethoxazole/Trimeth DS [Bactrim DS] 1 each PO BID #14 tablet Home Medications: Amiodarone [Cordarone] 200 mg PO DAILY 12/30/16 [History] Levothyroxine Sodium 200 mcg PO DAILY 12/30/16 [History] Polyethylene Glycol 3350 [MiraLAX] 17 gm PO DAILY PRN powd.pack 01/01/17 [Rx] Ascorbic Acid [Vitamin C] 500 mg PO DAILY 02/27/17 [History] Bisacodyl [Gentle Laxative] 10 mg RC DAILY 04/02/18 [History] Lactulose [Enulose] 10 gm PO DAILY 04/02/18 [History] MOM Conc [Milk of Magnesia Conc] 30 ml PO DAILY PRN 04/02/18 [History] Morphine Oral CONC [Roxanol] 10 mg PO Q6H PRN 04/02/18 [History] Multivitamin [Daily Multiple Vitamin] 1 tab PO DAILY 04/02/18 [History] OxyCODONE Immed Rel [Roxicodone 10 MG] 10 mg PO 0000,0600,1200,1800 04/02/18 [History] OxyCODONE Immed Rel [Roxicodone 10 MG] 10 mg PO TID PRN 04/02/18 [History] Potassium Chloride [Klor-Con 10] 10 meq PO DAILY 04/02/18 [History] Sennosides [Senna] 8.6 mg PO BID 04/02/18 [History] Sertraline [Zoloft] 25 mg PO Q48H 04/02/18 [History] Warfarin Sodium 4 mg PO 1700 04/02/18 [History] Sulfamethoxazole/Trimeth DS [Bactrim DS] 1 each PO BID #14 tablet 04/05/18 [Rx] Allergies/Adverse Reactions: Allergy/AdvReac Type Severity Reaction Status Date / Time meperidine [From Demerol] AdvReac Unresponsiv Verified 12/30/16 11:12 e - Respiratory Orders Smoking Cessation: Smoking cessation has been advised. For more information, call the [place] Tobacco Quit Line at 5-710-MXTR-NOW. CERTIFICATION: I certify that the transfer of the above named patient to an Extended Care Facility is necessary for the continuing treatment of the diagnosis listed. The above information is true and accurate reflection of patient's current condition. Confidential - Redisclosure prohibited without a patient's written consent.
[2018-04-05 15:50] VITALS: BP 144/60
== END 2018-04-05 16:42 | DRG 698 ==
LOC: EMEROOARM 21:41 → ICNU 04-02 01:08 → SUATTDRO 04-02 01:08 → ICNU 04-02 01:34 → 2ANU 04-03 10:08
PROVIDERS: ADMIT Family Medicine; ATTEND Internal Medicine